=== PATIENT | female | born 1955 | race Caucasian/White ===

== ENCOUNTER 2017-01-10 21:24 | Emergency (ER) | payer MEDICARE, MEDICAID ==
[2017-01-10] MEDS ORDERED: CLONIDINE HCL 0.2 MG TABLET PO ONE (23:21)
[2017-01-10] MEDS ORDERED: PROCHLORPERAZINE EDISYLATE INJ 10 MG/2 ML VIAL IV ONE (23:22)
[2017-01-10] MEDS ORDERED: KETOROLAC TROMETHAMINE INJ/PF 30 MG/1 ML SDV IV ONE (23:22)
[2017-01-10] MEDS ORDERED: LORAZEPAM INJ 2 MG/1 ML VIAL IV ONE (23:22)
[2017-01-11] MEDS ORDERED: HYDROCHLOROTHIAZIDE 25 MG TABLET PO ONE (00:55)
--- NOTE | 2017-01-11 01:02 | ER Document Report ---
ED General - General Chief Complaint: Blood Pressure Problem Stated Complaint: HEADACHE/BLOOD PRESSURE ISSUE Notes: Patient is a 61-year-old female past medical history of essential hypertension and chronic low back pain who presents with several days of a bitemporal headache which she states became abruptly worse approximately 5 PM this evening. She has not had any associated vomiting, weakness, numbness, or altered mental status. States she's had similar headaches in the past when she has had severely elevated blood pressure. She has not tried anything to improve her symptoms and did not notice anything worsens the pain. States symptoms are somewhat improved since onset at this time. Denies that the headache was abrupt in onset and states it took several hours to reach maximal intensity. She has not spoken to her primary care doctor regarding her uncontrolled blood pressures were today's episode of headache. TRAVEL OUTSIDE OF THE [place] IN LAST 30 DAYS: No - Related Data Allergies/Adverse Reactions: fentanyl [From Duragesic] Allergy (Severe, Verified 04/19/16 23:37) Severe rash interferon beta-1b [From Betaseron] Allergy (Severe, Verified 09/06/14 14:20) Seizures morphine [Morphine] Allergy (Severe, Verified 04/19/16 23:37) Swelling, rash, difficulty breathing nalbuphine HCl [From Nubain] Allergy (Severe, Verified 04/19/16 23:37) Swelling, rash, Diff. breathing, Tachycardia quetiapine fumarate [From Seroquel] Allergy (Severe, Verified 09/06/14 14:20) crazy levofloxacin [From Levaquin] Allergy (Intermediate, Verified 09/06/14 14:20) Hives Sulfa (Sulfonamide Antibiotics) Allergy (Intermediate, Verified 09/06/14 14:20) N&V aspirin [Aspirin] Adverse Reaction (Verified 09/06/14 14:20) pt has von willebrands Past Medical History - General Information source: Patient - Social History Smoking Status: Never Smoker Chew tobacco use (# tins/day): No Frequency of alcohol use: None Drug Abuse: None Lives with: Spouse/Significant other Family History: Reviewed & Not Pertinent Patient has suicidal ideation: No Patient has homicidal ideation: No - Past Medical History Cardiac Medical History: Reports: Hx Coronary Artery Disease, Hx Heart Attack - 2008 mild , Hx Hypercholesterolemia, Hx Hypertension Pulmonary Medical History: Reports: Hx Asthma, Hx Bronchitis, Hx COPD, Hx Pneumonia - 2011 x 2 Denies: Hx Tuberculosis Neurological Medical History: Reports: Hx Seizures. Denies: Hx Cerebrovascular Accident Endocrine Medical History: Reports: Hx Diabetes Mellitus Type 2 Renal/ Medical History: Reports: Hx Kidney Stones. Denies: Hx Peritoneal Dialysis Musculoskeltal Medical History: Reports Hx Arthritis, Reports Hx Multiple Sclerosis Skin Medical History: Reports Hx MRSA Psychiatric Medical History: Reports: Hx Bipolar Disorder Past Surgical History: Reports: Hx Cholecystectomy, Hx Hysterectomy, Hx Orthopedic Surgery - Bilateral hips; does not have rt hip, left hip repair. Denies: Hx Pacemaker - Immunizations Hx Diphtheria, Pertussis, Tetanus Vaccination: Yes Hx Pneumococcal Vaccination: 03/17/13 Review of Systems - Review of Systems Notes: Constitutional: Negative for fever. HENT: Negative for sore throat. Eyes: Negative for visual changes. Cardiovascular: Negative for chest pain. Respiratory: Negative for shortness of breath. Gastrointestinal: Negative for abdominal pain, vomiting or diarrhea. Genitourinary: Negative for dysuria. Musculoskeletal: Positive for back pain. Skin: Negative for rash. Neurological: Positive for headaches, negative for weakness or numbness. 10 point ROS negative except as marked above and in HPI. Physical Exam - Vital signs Vitals: Temp Pulse Resp BP Pulse Ox 98.1 F 81 16 195/98 H 99 01/10/17 21:52 01/10/17 21:52 01/10/17 21:52 01/10/17 21:52 01/10/17 21:52 Interpretation: Hypertensive Notes: PHYSICAL EXAMINATION: GENERAL: Well-appearing, well-nourished and in no acute distress. HEAD: Atraumatic, normocephalic. EYES: Pupils equal round and reactive to light, extraocular movements intact, sclera anicteric, conjunctiva are normal. ENT: nares patent, oropharynx clear without exudates. Moist mucous membranes. NECK: Normal range of motion, supple without lymphadenopathy LUNGS: Breath sounds clear to auscultation bilaterally and equal. No wheezes rales or rhonchi. HEART: Regular rate and rhythm without murmurs ABDOMEN: Soft, nontender, normoactive bowel sounds. No guarding, no rebound. No masses appreciated. EXTREMITIES: Normal range of motion, no pitting or edema. No cyanosis. NEUROLOGICAL: Face symmetric. Tongue protrudes midline. Extraocular motions intact. Pupils are 2 mm and equally reactive. Normal speech, normal gait. 5 out of 5 strength in both the distal and proximal upper and lower extremities bilaterally. Sensation is grossly intact throughout. Finger to nose testing normal. Pronator drift normal. PSYCH: Normal mood, normal affect. SKIN: Warm, Dry, normal turgor, no rashes or lesions noted. Course - Re-evaluation Re-evalutation: 01/11/17 01:13 Patient presented with hypertension with an associated headache. The headache has been present for several days but became acutely acutely worse proximal and 5 hours prior to arrival. Patient is very clear that the headache started approximately [address] of the head was obtained within 6 hours of that time. No evidence of an acute subarachnoid bleed. Likewise, patient's clinical history is not consistent with this diagnosis. Given normal head CT within 6 hours will not proceed with lumbar puncture. Patient denied any chest pain or shortness of breath or additional complaints beyond a headache. Her headache was treated here with clonidine, Compazine and Ativan and she has had complete resolution of the headache. Her blood pressure has normalized. She will be discharged home on hydrochlorothiazide and instructed to continue taking her atenolol as directed.At this time will discharge with return precautions and follow-up recommendations. Verbal discharge instructions given a the bedside and opportunity for questions given. Medication warnings reviewed. Patient is in agreement with this plan and has verbalized understanding of return precautions and the need for primary care follow-up in the next 24-72 hours. - Vital Signs Vital signs: Temp Pulse Resp BP Pulse Ox 98.3 F 85 14 117/77 96 01/10/17 22:10 01/10/17 22:10 01/11/17 01:01 01/11/17 01:01 01/11/17 01:01 - Diagnostic Test Radiology reviewed: Image reviewed, Reports reviewed Radiology results interpreted by me: 01/11/17 04:23 CT head: No acute intrarenal bleed Discharge - Discharge Clinical Impression: Accelerated hypertension Headache Qualifiers: Headache type: unspecified Headache chronicity pattern: acute headache Intractability: not intractable Qualified Code(s): R51 - Headache Condition: Fair Disposition: HOME, SELF-CARE Additional Instructions: You were seen today for blood pressure that was high. This is a long-term risk factor for multiple medical problems including heart attack and stroke. However, the blood pressure in of itself will not cause you to have an acute stroke or heart attack over the course of just several days or weeks. You need to have a gradual reduction of your blood pressure back to normal levels over the next several months in conjunction with your primary care physician. Return if you develop headache, weakness, numbness, chest pain, pass out, or have any other symptoms that are concerning to you. Prescriptions: Hydrochlorothiazide 25 mg PO DAILY #30 tablet Referrals: LINDSAY SHORE MD [Primary Care Provider] - Follow up in 3-5 days
[2017-01-11 05:30] VITALS: BP 117/77
== END 2017-01-11 01:17 | disposition home or self-care (01) ==
LOC: ER 21:24
DX: I10 Essential (primary) hypertension (principal); R51 Headache; G89.29 Other chronic pain; M54.5 Low back pain; E11.9 Type 2 diabetes mellitus without complications; I25.10 Atherosclerotic heart disease of native coronary artery without angina pectoris; E78.00 Pure hypercholesterolemia, unspecified; Z88.6 Allergy status to analgesic agent; Z88.2 Allergy status to sulfonamides; Z86.14 Personal history of Methicillin resistant Staphylococcus aureus infection; Z90.710 Acquired absence of both cervix and uterus; Z90.49 Acquired absence of other specified parts of digestive tract; Z87.442 Personal history of urinary calculi; I25.2 Old myocardial infarction
CPT/HCPCS: 99283; 70450; A9270; J2060; J0780

== ENCOUNTER → 2017-05-05 | Outpatient (CLI) | payer MEDICARE, MEDICAID ==
[2017-05-05 18:24] LABS: ABSOLUTE BASOPHILS # (AUTO) 0.1 10^3/uL (0.0-0.2); ABSOLUTE EOSINOPHILS # (AUTO) 0.3 10^3/uL (0.0-0.6); ABSOLUTE LYMPHOCYTES (AUTO) 3.5 10^3/uL (0.5-4.7); BASOPHILS % (AUTO) 0.8 % (0-2); EOSINOPHILS % (AUTO) 2.6 % (0-6); HEMATOCRIT 39.6 % (36.0-47.0); HEMOGLOBIN 13.7 g/dL (12.0-15.5); HGB HCT DIFFERENCE 1.5; LYMPHOCYTES % (AUTO) 36.1 % (13-45); MEAN CORPUSCULAR HGB CONC 34.5 g/dL (32.0-36.0); MEAN CORPUSCULAR VOLUME 84 fl (80-97); MONOCYTES % (AUTO) 9.8 % (3-13); RED BLOOD COUNT 4.72 10^6/uL (3.72-5.28); RED CELL DISTRIBUTION WIDTH 13.9 % (11.5-14.0); SEGMENTED NEUTROPHILS % (AUTO) 50.7 % (42-78); WHITE BLOOD COUNT 9.8 10^3/uL (4.0-10.5)
[2017-05-05 18:45] LABS: ALANINE AMINOTRANSFERASE 41 U/L (9-52); ALBUMIN 4.5 g/dL (3.5-5.0); ALKALINE PHOSPHATASE 101 U/L (38-126); ANION GAP 12 (5-19); ASPARTATE AMINO TRANSFERASE 26 U/L (14-36); BILIRUBIN,DIRECT 0.4 mg/dL (0.0-0.4); BILIRUBIN,TOTAL 0.6 mg/dL (0.2-1.3); BLOOD UREA NITROGEN 17 mg/dL (7-20); CALCIUM 10.2 mg/dL (8.4-10.2); CARBON DIOXIDE 30 mmol/L (22-30); CHLORIDE 97 mmol/L (98-107); CREATININE RESULT 0.89 mg/dL (0.52-1.25); GLUCOSE 130 mg/dL (75-110); SODIUM 138.9 mmol/L (137-145); TOTAL PROTEIN 8.1 g/dL (6.3-8.2)
--- NOTE | 2017-05-05 19:20 | RADIOLOGY REPORT (SQ) ---
EXAM DESCRIPTION: CT ABD/PELVIS NO ORAL OR IV COMPLETED DATE/TIME: 05/05/2017 6:44 pm REASON FOR STUDY: HEMATURIA,UNSPECIFIED R31.9 HEMATURIA, UNSPECIFIED COMPARISON: None. TECHNIQUE: CT scan of the abdomen and pelvis performed without intravenous or oral contrast. Images reviewed with lung, soft tissue, and bone windows. Reconstructed coronal and sagittal MPR images revi ewed. All images stored on PACS. All CT scanners at this facility use dose modulation, iterative reconstruction, and/or weight based d osing when appropriate to reduce radiation dose to as low as reasonably achievable (ALARA). [facility]: Dose Right [facility]: CareDose [facility]: Dose Right [facility]: Teradose 4D [facility]: [employer] RADIATION DOSE: Up-to-date CT equipment and radiation dose reduction techniques were employed. CTDIv ol: 5.4 mGy. DLP: 256 mGy-cm.mGy. LIMITATIONS: None. FINDINGS: LOWER CHEST: No significant findings. No nodules or infiltrates. NON-CONTRASTED LIVER, SPLEEN, ADRENALS: Evaluation limited by lack of IV contrast. No identified sign ificant masses. PANCREAS: No masses. No peripancreatic inflammatory changes. GALLBLADDER: Status post cholecystectomy RIGHT KIDNEY AND URETER: No suspicious masses. Assessment limited by lack of IV contrast. No signif icant calcifications. No hydronephrosis or hydroureter. LEFT KIDNEY AND URETER: A markedly atrophic left kidney is identified. Couple small calcific densit ies are identified presumably representing nonobstructing renal calculi. These could also represent cortical calcifications. No hydronephrosis or hydroureter. AORTA AND RETROPERITONEUM: No aneurysm. No retroperitoneal masses or adenopathy. BOWEL AND PERITONEAL CAVITY: No obvious masses or inflammatory changes. No free fluid. APPENDIX: Not identified PELVIS, BLADDER, AND ABDOMINAL WALL:No abnormal masses. No free fluid. Bladder normal. BONES: Extensive degenerative changes are identified in the lumbar spine. There is marked deformity of the with right hip articulation presumably related to previous trauma. OTHER: No other significant finding. IMPRESSION: Markedly atrophic left kidney as noted above. A couple small calcific densities are joey ntified in the left kidney presumably representing nonobstructing renal calculi although these could also represent cortical calcifications. Other findings as noted above TECHNICAL DOCUMENTATION: JOB ID: [id number] Quality ID # [id number]: Final reports with documentation of one or more dose reduction techniques (e.g., Au tomated exposure control, adjustment of the mA and/or kV according to patient size, use of iterative reconstruction technique) 2010 [employer]- All Rights Reserved
== END ==
LOC: LAB 17:54
PROVIDERS: ATTEND Physician Assistant
DX: R31.9 Hematuria, unspecified (principal); N26.1 Atrophy of kidney (terminal)
CPT/HCPCS: 36415; 74176; 80053; 85025

== ENCOUNTER → 2017-06-04 | Outpatient (CLI) | payer MEDICARE, MEDICAID ==
--- NOTE | 2017-06-04 16:53 | RADIOLOGY REPORT (SQ) ---
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 FINDINGS: RIGHT KIDNEY: RENAL ARTERY VELOCITIES: Renal artery velocity at the hilum 87 cm/sec. Segmental artery velocity 79 cm/sec. RENAL VEIN: Color doppler flow present, patent. VELOCITY RATIO: 1.6. Normal waveforms. KIDNEY: 9 cm in length. No hydronephrosis. No cortical thinning. No significant pathology. LEFT KIDNEY: Patient had a double-J stent on the left, 05/24/2007 CT exam. At that time the kidney measured about 6 to 7 cm in greatest length. Subsequent CT exams since 2010 demonstrate a markedly atrophic left ki dney, less than 5 cm in length without hydronephrosis. On today's ultrasound exam, the left kidney was not visualized. This likely due to a combination of bowel gas in the left colon and patient large body habitus. BLADDER: Normal. OTHER: No other significant finding. IMPRESSION: No Doppler evidence of right-sided renal artery stenosis. Left kidney not visualized. Prior CT exams demonstrated atrophy of the left kidney dating back to 25 08 and 2006 COMMENT: NORMAL RENAL ARTERY/AORTA VELOCITY RATIO IS LESS THAN OR EQUAL TO 3.5. TECHNICAL DOCUMENTATION: JOB ID: [id number] [employer]- All Rights Reserved COMPARISON: None. Abdomen and pelvis 05/05/2017, a 22,012, 05/22/2011, 05/24/2007 TECHNIQUE: Realtime and static grayscale images acquired. Selected color Doppler, velocities and spe ctral images recorded.
--- NOTE | 2017-06-04 16:53 | RADIOLOGY REPORT (SQ) ---
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 FINDINGS: RIGHT KIDNEY: RENAL ARTERY VELOCITIES: Renal artery velocity at the hilum 87 cm/sec. Segmental artery velocity 79 cm/sec. RENAL VEIN: Color doppler flow present, patent. VELOCITY RATIO: 1.6. Normal waveforms. KIDNEY: 9 cm in length. No hydronephrosis. No cortical thinning. No significant pathology. LEFT KIDNEY: Patient had a double-J stent on the left, 05/24/2007 CT exam. At that time the kidney measured about 6 to 7 cm in greatest length. Subsequent CT exams since 2010 demonstrate a markedly atrophic left ki dney, less than 5 cm in length without hydronephrosis. On today's ultrasound exam, the left kidney was not visualized. This likely due to a combination of bowel gas in the left colon and patient large body habitus. BLADDER: Normal. OTHER: No other significant finding. IMPRESSION: No Doppler evidence of right-sided renal artery stenosis. Left kidney not visualized. Prior CT exams demonstrated atrophy of the left kidney dating back to 25 08 and 2006 COMMENT: NORMAL RENAL ARTERY/AORTA VELOCITY RATIO IS LESS THAN OR EQUAL TO 3.5. TECHNICAL DOCUMENTATION: JOB ID: [id number] [employer]- All Rights Reserved COMPARISON: None. Abdomen and pelvis 05/05/2017, a 22,012, 05/22/2011, 05/24/2007 TECHNIQUE: Realtime and static grayscale images acquired. Selected color Doppler, velocities and spe ctral images recorded.
== END ==
LOC: RAD 12:57
PROVIDERS: ATTEND Physician Assistant Medical
DX: N26.1 Atrophy of kidney (terminal) (principal); E11.9 Type 2 diabetes mellitus without complications
CPT/HCPCS: 76770; 93976

== ENCOUNTER 2018-01-09 17:44 | Emergency (ER) | payer MEDICARE, MEDICAID ==
--- NOTE | 2018-01-09 18:28 | RADIOLOGY REPORT (SQ) ---
EXAM DESCRIPTION: CT HEAD WITHOUT COMPLETED DATE/TIME: 01/09/2018 6:17 pm REASON FOR STUDY: altered mental status COMPARISON: 01/10/2017 TECHNIQUE: Axial images acquired through the brain without intravenous contrast. Images reviewed wi th bone, brain and subdural windows. Additional sagittal and coronal reconstructions were generated. Images stored on PACS. All CT scanners at this facility use dose modulation, iterative reconstruction, and/or weight based d osing when appropriate to reduce radiation dose to as low as reasonably achievable (ALARA). [facility]: Dose Right [facility]: CareDose [facility]: Dose Right [facility]: Teradose 4D [facility]: [employer] RADIATION DOSE: CT Rad equipment meets quality standard of care and radiation dose reduction techniq ues were employed. CTDIvol: 53.2 mGy. DLP: 991 mGy-cm. mGy. LIMITATIONS: None. FINDINGS: VENTRICLES: Normal size and contour. CEREBRUM: No masses. No hemorrhage. No midline shift. There is an old or subacute infarct in the l eft posterior parietal lobe. This was not present on the study from 01/10/2017. Normal carlson/white gloria er differentiation. No areas of low density in the white matter. CEREBELLUM: No masses. No hemorrhage. No alteration of density. No evidence for acute infarction. EXTRAAXIAL SPACES: No fluid collections. No masses. ORBITS AND GLOBE: No intra- or extraconal masses. Normal contour of globe without masses. CALVARIUM: No fracture. PARANASAL SINUSES: No fluid or mucosal thickening. SOFT TISSUES: No mass or hematoma. OTHER: No other significant finding. IMPRESSION: 1. 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 This was not present in January 2017. 2. No acute intracranial imaging finding is present. EVIDENCE OF ACUTE STROKE: NO. COMMENT: Quality ID # [id number]: Final reports with documentation of one or more dose reduction techniques (e.g., Automated exposure control, adjustment of the mA and/or kV according to patient size, use of iterative reconstruction technique) TECHNICAL DOCUMENTATION: JOB ID: [id number] [employer]- All Rights Reserved Reading location - IP/workstation name: [email or web address]
[2018-01-09] MEDS ORDERED: NORMAL SALINE 1000 ML 1,000 ML IV ONE (18:31)
[2018-01-09] MEDS ORDERED: HALOPERIDOL LACTATE INJ 5 MG/1 ML VIAL IV ONE (18:31)
[2018-01-09 18:53] LABS: ABSOLUTE EOSINOPHILS # (AUTO) 0.5 10^3/uL (0.0-0.6); ABSOLUTE LYMPHOCYTES (AUTO) 2.9 10^3/uL (0.5-4.7); ABSOLUTE MONOCYTES (AUTO) 0.9 10^3/uL (0.1-1.4); BASOPHILS % (AUTO) 0.4 % (0-2); EOSINOPHILS % (AUTO) 4.7 % (0-6); HEMATOCRIT 39.2 % (36.0-47.0); HEMOGLOBIN 12.6 g/dL (12.0-15.5); LYMPHOCYTES % (AUTO) 28.3 % (13-45); MEAN CORPUSCULAR HEMOGLOBIN 27.7 pg (27.0-33.4); MEAN CORPUSCULAR HGB CONC 32.3 g/dL (32.0-36.0); MEAN CORPUSCULAR VOLUME 86 fl (80-97); MONOCYTES % (AUTO) 8.9 % (3-13); PLATELET COUNT 195 10^3/uL (150-450); RED BLOOD COUNT 4.55 10^6/uL (3.72-5.28); RED CELL DISTRIBUTION WIDTH 15.2 % (11.5-14.0); SEGMENTED NEUTROPHILS % (AUTO) 57.7 % (42-78); TOTAL CELLS COUNTED % (AUTO) 100 %; WHITE BLOOD COUNT 10.4 10^3/uL (4.0-10.5)
[2018-01-09 19:09] LABS: ANION GAP 12 (5-19); BLOOD UREA NITROGEN 33 mg/dL (7-20); CALCIUM 9.7 mg/dL (8.4-10.2); CARBON DIOXIDE 28 mmol/L (22-30); CHLORIDE 103 mmol/L (98-107); GLUCOSE 100 mg/dL (75-110); POTASSIUM 4.5 mmol/L (3.6-5.0); SODIUM 142.6 mmol/L (137-145)
--- NOTE | 2018-01-09 19:12 | ER Document Report ---
ED General - General Chief Complaint: Altered Mental Status Stated Complaint: HEADACHE, FEVER, CONFUSION, ARM WEAKNESS Time Seen by Provider: 01/09/18 18:28 Notes: Patient is a 62 year old female with a past medical history of hypertension, insulin-dependent diabetes, hyperlipidemia, multiple sclerosis, and chronic pain who presents with 3 days of a headache. Patient describes this as a constant, throbbing, bitemporal headache worsened by lights and sounds. She notes associated nausea without vomiting. States this feels very similar to prior headaches. She has not done them to try to improve her headache. She denies any focal weakness, numbness, and contrary to triage assessment she denies any fever. She states that sometimes the pain has become so intense that it has caused her to become somewhat confused which she reports she has had in the past with bad headaches. She denies any chest pain, shortness of breath or any additional complaints. She has been taking all medications as prescribed by her primary doctor. TRAVEL OUTSIDE OF THE [place] IN LAST 30 DAYS: No - Related Data Allergies/Adverse Reactions: fentanyl [From Duragesic] Allergy (Severe, Verified 04/19/16 23:37) Severe rash interferon beta-1b [From Betaseron] Allergy (Severe, Verified 09/06/14 14:20) Seizures morphine [Morphine] Allergy (Severe, Verified 04/19/16 23:37) Swelling, rash, difficulty breathing nalbuphine HCl [From Nubain] Allergy (Severe, Verified 04/19/16 23:37) Swelling, rash, Diff. breathing, Tachycardia quetiapine fumarate [From Seroquel] Allergy (Severe, Verified 09/06/14 14:20) crazy levofloxacin [From Levaquin] Allergy (Intermediate, Verified 09/06/14 14:20) Hives Sulfa (Sulfonamide Antibiotics) Allergy (Intermediate, Verified 09/06/14 14:20) N&V aspirin [Aspirin] Adverse Reaction (Verified 09/06/14 14:20) pt has von willebrands Past Medical History - General Information source: Patient - Social History Smoking Status: Never Smoker Frequency of alcohol use: None Drug Abuse: None Lives with: Alone Family History: Reviewed & Not Pertinent Patient has suicidal ideation: No Patient has homicidal ideation: No - Past Medical History Cardiac Medical History: Reports: Hx Coronary Artery Disease, Hx Heart Attack - 2008 mild , Hx Hypercholesterolemia, Hx Hypertension Pulmonary Medical History: Reports: Hx Asthma, Hx Bronchitis, Hx COPD, Hx Pneumonia - 2011 x 2 Denies: Hx Tuberculosis Neurological Medical History: Reports: Hx Seizures. Denies: Hx Cerebrovascular Accident Endocrine Medical History: Reports: Hx Diabetes Mellitus Type 2 Renal/ Medical History: Reports: Hx Kidney Stones. Denies: Hx Peritoneal Dialysis Musculoskeltal Medical History: Reports Hx Arthritis, Reports Hx Multiple Sclerosis Skin Medical History: Reports Hx MRSA Psychiatric Medical History: Reports: Hx Bipolar Disorder Past Surgical History: Reports: Hx Cholecystectomy, Hx Hysterectomy, Hx Orthopedic Surgery - Bilateral hips; does not have rt hip, left hip repair. Denies: Hx Pacemaker - Immunizations Hx Diphtheria, Pertussis, Tetanus Vaccination: Yes Hx Pneumococcal Vaccination: 03/17/13 Review of Systems - Review of Systems Notes: Constitutional: Negative for fever. HENT: Negative for sore throat. Eyes: Negative for visual changes. Cardiovascular: Negative for chest pain. Respiratory: Negative for shortness of breath. Gastrointestinal: Negative for abdominal pain, positive for nausea Genitourinary: Negative for dysuria. Musculoskeletal: Negative for back pain. Skin: Negative for rash. Neurological: Positive for headache 10 point ROS negative except as marked above and in HPI. Physical Exam - Vital signs Vitals: Temp Pulse Resp BP Pulse Ox 97.6 F 93 16 130/61 H 97 01/09/18 17:48 01/09/18 17:48 01/09/18 17:48 01/09/18 17:48 01/09/18 17:48 Interpretation: Normal Notes: PHYSICAL EXAMINATION: GENERAL: Well-appearing, well-nourished and in no acute distress. HEAD: Atraumatic, normocephalic. EYES: Pupils equal round and reactive to light, extraocular movements intact, sclera anicteric, conjunctiva are normal. ENT: nares patent, oropharynx clear without exudates. Moist mucous membranes. NECK: Normal range of motion, supple without lymphadenopathy LUNGS: Breath sounds clear to auscultation bilaterally and equal. No wheezes rales or rhonchi. HEART: Regular rate and rhythm without murmurs ABDOMEN: Soft, nontender, normoactive bowel sounds. No guarding, no rebound. No masses appreciated. EXTREMITIES: Normal range of motion, no pitting or edema. No cyanosis. NEUROLOGICAL: Face symmetric. Tongue protrudes midline. Extraocular motions intact. Pupils are 2 mm and equally reactive. Normal speech, normal gait. 5 out of 5 strength in both the distal and proximal upper and lower extremities bilaterally. Sensation is grossly intact throughout. Finger to nose testing normal. Pronator drift normal. PSYCH: Normal mood, normal affect. SKIN: Warm, Dry, normal turgor, no rashes or lesions noted. Course - Re-evaluation Re-evalutation: 01/09/18 19:09 Presentation of a headache that appears to be most consistent with tension versus migrainous type headache. Please note, there are significant variances between the patient reports to me, was reported in triage. The patient states that she was "kind of confused" but attributes this more to be on such bad pain. She is also clear to deny to me, neurologic deficits, or any difference from prior headaches. Headache was not maximal in onset, patient has no focal neurologic deficits, no nuchal rigidity, vital signs within normal limits, no papilledema, and patient is overall well in appearance. Based on clinical history and examination I do not suspect an acute subarachnoid hemorrhage, dural venous sinus thrombosis, acute meningitis, or intercranial mass. A CT of the head was obtained prior to my assessment the patient and shows an old parietal stroke but nothing acute. Labs are likewise unremarkable. Patient has had resolution of her headache after receiving a migraine cocktail like to go. At this time will discharge with return precautions and follow-up recommendations. Verbal discharge instructions given a the bedside and opportunity for questions given. Medication warnings reviewed. Patient is in agreement with this plan and has verbalized understanding of return precautions and the need for primary care follow-up in the next 24-72 hours. - Vital Signs Vital signs: Temp Pulse Resp BP Pulse Ox 97.7 F 93 15 108/48 L 95 01/09/18 20:48 01/09/18 17:48 01/09/18 20:48 01/09/18 20:48 01/09/18 20:48 - Laboratory Result Diagrams: 01/09/18 18:39 01/09/18 18:39 Laboratory results interpreted by me: 01/09/18 01/09/18 18:39 18:39 RDW 15.2 H BUN 33 H - Diagnostic Test Radiology reviewed: Image reviewed, Reports reviewed Radiology results interpreted by me: 01/09/18 19:10 CT head: No acute intracranial bleed or mass - EKG Interpretation by Me Additional EKG results interpreted by me: 01/09/18 19:11 Sinus rhythm. Rate 87. No ST elevations or depressions. QTC is 448. Discharge - Discharge Clinical Impression: Migraine headache Qualifiers: Migraine type: unspecified Status migrainosus presence: with status migrainosus Intractability: not intractable Qualified Code(s): G43.901 - Migraine, unspecified, not intractable, with status migrainosus Chronic pain Qualifiers: Chronic pain type: other chronic pain Qualified Code(s): G89.29 - Other chronic pain Condition: Good Disposition: HOME, SELF-CARE Additional Instructions: You were seen today for a migraine headache. Please follow-up with your primary care doctor regarding today's ED visit. Return to emergency department immediately if you develop a headache that gets to its maximum severity within 20 minutes of onset, you pass out, you develop weakness, numbness, changes in your vision, become unable to keep any fluids down for more than 12 hours, or develop a fever greater than 100.4 degrees Fahrenheit. Referrals: LINDSAY SHORE MD [Primary Care Provider] - Follow up as needed
--- NOTE | 2018-01-09 21:02 | EKG REPORT ---
SEVERITY:- BORDERLINE ECG - SINUS RHYTHM CONSIDER ANTERIOR INFARCT BORDERLINE T ABNORMALITIES, ANTERIOR LEADS : Confirmed by: Dejah Schwartz 09-Jan-2018 21:01:44
[2018-01-09 21:04] VITALS: BP 108/48
== END 2018-01-09 20:48 | disposition home or self-care (01) ==
LOC: ER 17:44
DX: G43.901 Migraine, unspecified, not intractable, with status migrainosus (principal); R41.82 Altered mental status, unspecified; R50.9 Fever, unspecified; R53.1 Weakness; G89.29 Other chronic pain; E11.9 Type 2 diabetes mellitus without complications; Z88.6 Allergy status to analgesic agent; Z88.2 Allergy status to sulfonamides; Z90.49 Acquired absence of other specified parts of digestive tract; Z90.710 Acquired absence of both cervix and uterus; Z87.442 Personal history of urinary calculi
CPT/HCPCS: 93005; 99285; 96361; 96374; 36415; 85025; 80048; 84484; 70450; 93010; J1630; J7030

== ENCOUNTER 2018-03-03 20:44 | Emergency (ER) | payer MEDICARE, MEDICAID ==
[2018-03-03 21:15] VITALS: BP 186/86
[2018-03-04 00:51] LABS: HEMOGLOBIN 14.5 g/dL (12.0-15.5); MEAN CORPUSCULAR HEMOGLOBIN 28.6 pg (27.0-33.4); MEAN CORPUSCULAR HGB CONC 33.8 g/dL (32.0-36.0); MEAN CORPUSCULAR VOLUME 85 fl (80-97); PLATELET COUNT 234 10^3/uL (150-450); RED BLOOD COUNT 5.07 10^6/uL (3.72-5.28); WHITE BLOOD COUNT 14.4 10^3/uL (4.0-10.5)
[2018-03-04 00:52] LABS: APPEARANCE,URINE SLIGHTLY-CLOUDY; BILIRUBIN,URINE NEGATIVE (NEGATIVE); GLUCOSE, URINE NEGATIVE (NEGATIVE); KETONES,URINE 20 mg/dL (NEGATIVE); LEUKOCYTE ESTERASE,URINE NEGATIVE (NEGATIVE); NITRITE,URINE NEGATIVE (NEGATIVE); PROTEIN,URINE 100 mg/dL (NEGATIVE); URINE SPECIFIC GRAVITY 1.026
[2018-03-04 00:54] LABS: COLOR,URINE YELLOW
[2018-03-04 01:02] LABS: ANION GAP 17 (5-19); BLOOD UREA NITROGEN 24 mg/dL (7-20); CARBON DIOXIDE 23 mmol/L (22-30); CHLORIDE 106 mmol/L (98-107); GLUCOSE 113 mg/dL (75-110); POTASSIUM 4.2 mmol/L (3.6-5.0); SODIUM 145.9 mmol/L (137-145)
--- NOTE | 2018-03-04 01:48 | ER Document Report ---
ED General - General Chief Complaint: Pain All Over Stated Complaint: PAIN ALL OVER Time Seen by Provider: 03/03/18 23:14 TRAVEL OUTSIDE OF THE [place] IN LAST 30 DAYS: No - HPI Patient complains to provider of: Medical evaluation Notes: Patient coming in with a history of osteomyelitis and patient came in for EMS for generalized malaise. Upon my evaluation patient is alert oriented no signs of any obvious distress no signs of any malaise. Patient states that for the last 4 weeks she has been having symptoms of intermittent weakness and also some nausea vomiting and diarrhea. Patient states that approximately 2 weeks ago her family physician recommended that she go to the hospital in [place] for further evaluation. Patient also states that her care has been delayed as that her primary care physician cannot obtain her medical records from her old neurologist Dr. Avila. Patient states that she was told to come to the ER by her family physician for a shot of Dilaudid and a shot of Ativan to help out with her "situation" and to be transferred today to [facility]. The HPI is very convoluted as the patient really does not have what seem to be an emergent condition I asked the patient multiple times the exact reason why she came to the ER today patient continues to apply the my statement that 4 weeks ago she started having symptoms and that her PCP cannot get her old records from her neurologist Dr. Avila. Patient does state that she is concerned that she may have underlying UTI. - Related Data Allergies/Adverse Reactions: fentanyl [From Duragesic] Allergy (Severe, Verified 04/19/16 23:37) Severe rash interferon beta-1b [From Betaseron] Allergy (Severe, Verified 09/06/14 14:20) Seizures morphine [Morphine] Allergy (Severe, Verified 04/19/16 23:37) Swelling, rash, difficulty breathing nalbuphine HCl [From Nubain] Allergy (Severe, Verified 04/19/16 23:37) Swelling, rash, Diff. breathing, Tachycardia quetiapine fumarate [From Seroquel] Allergy (Severe, Verified 09/06/14 14:20) crazy levofloxacin [From Levaquin] Allergy (Intermediate, Verified 09/06/14 14:20) Hives Sulfa (Sulfonamide Antibiotics) Allergy (Intermediate, Verified 09/06/14 14:20) N&V aspirin [Aspirin] Adverse Reaction (Verified 09/06/14 14:20) pt has von willebrands Past Medical History - Social History Smoking Status: Unknown if Ever Smoked Family History: Reviewed & Not Pertinent Patient has suicidal ideation: No Patient has homicidal ideation: No - Past Medical History Cardiac Medical History: Reports: Hx Coronary Artery Disease, Hx Heart Attack - 2008 mild , Hx Hypercholesterolemia, Hx Hypertension Pulmonary Medical History: Reports: Hx Asthma, Hx Bronchitis, Hx COPD, Hx Pneumonia - 2010 x 2 Denies: Hx Tuberculosis Neurological Medical History: Reports: Hx Seizures. Denies: Hx Cerebrovascular Accident Endocrine Medical History: Reports: Hx Diabetes Mellitus Type 2 Renal/ Medical History: Reports: Hx Kidney Stones. Denies: Hx Peritoneal Dialysis Musculoskeltal Medical History: Reports Hx Arthritis, Reports Hx Multiple Sclerosis Skin Medical History: Reports Hx MRSA Psychiatric Medical History: Reports: Hx Bipolar Disorder Past Surgical History: Reports: Hx Cholecystectomy, Hx Hysterectomy, Hx Orthopedic Surgery - Bilateral hips; does not have rt hip, left hip repair. Denies: Hx Pacemaker - Immunizations Hx Diphtheria, Pertussis, Tetanus Vaccination: Yes Hx Pneumococcal Vaccination: 03/17/13 Review of Systems - Review of Systems Constitutional: Malaise EENT: No symptoms reported Cardiovascular: No symptoms reported Respiratory: No symptoms reported Gastrointestinal: No symptoms reported Genitourinary: No symptoms reported Female Genitourinary: No symptoms reported Musculoskeletal: No symptoms reported Skin: No symptoms reported Hematologic/Lymphatic: No symptoms reported Neurological/Psychological: No symptoms reported -: Yes All other systems reviewed and negative Physical Exam - Vital signs Vitals: Temp Pulse Resp BP Pulse Ox 98.5 F 97 18 186/86 H 97 03/03/18 21:13 03/03/18 21:13 03/03/18 21:13 03/03/18 21:13 03/03/18 21:13 Interpretation: Normal - General General appearance: Appears well, Alert - HEENT Head: Normocephalic, Atraumatic Eyes: Normal Pupils: PERRL - Respiratory Respiratory status: No respiratory distress Chest status: Nontender Breath sounds: Normal Chest palpation: Normal - Cardiovascular Rhythm: Regular Heart sounds: Normal auscultation Murmur: No - Abdominal Inspection: Normal Distension: No distension Bowel sounds: Normal Tenderness: Nontender Organomegaly: No organomegaly - Back Back: Normal, Nontender - Extremities General upper extremity: Normal inspection, Nontender, Normal color, Normal ROM , Normal temperature General lower extremity: Nontender, Normal temperature. No: Normal inspection - Postsurgical changes no signs of infection - Neurological Neuro grossly intact: Yes Cognition: Normal Orientation: AAOx4 [place] Coma Scale Eye Opening: Spontaneous Heidi Coma Scale Verbal: Oriented Heidi Coma Scale Motor: Obeys Commands [place] Coma Scale Total: 15 Speech: Normal Motor strength normal: LUE, RUE, LLE, RLE Sensory: Normal - Psychological Associated symptoms: Normal affect, Normal mood - Skin Skin Temperature: Warm Skin Moisture: Dry Skin Color: Normal Course - Re-evaluation Re-evalutation: 03/04/18 03:32 Patient coming in with a wide variety of chronic conditions however is concerned she may have underlying urinary tract infection which was checked and was negative. Patient's vital signs show no fever no signs of sepsis no signs of significant pathology. Patient does have a slight leukocytosis at 14 however no fever do not see any need for any antibiotics or any further workup. Patient remained stable during her time here did explain to the patient she has a UTI no concerning pathology seen on her physical examination highly recommended to the patient she follow-up with her primary care physician and that she will be able to obtain her records from the hospital once I finish dictating my note. Patient was discharged home - Vital Signs Vital signs: Temp Pulse Resp BP Pulse Ox 98.5 F 97 18 186/86 H 97 03/03/18 21:13 03/03/18 21:13 03/03/18 21:13 03/03/18 21:13 03/03/18 21:13 - Laboratory Result Diagrams: 03/04/18 00:40 03/04/18 00:40 Laboratory results interpreted by me: 03/04/18 03/04/18 03/04/18 00:27 00:40 00:40 WBC 14.4 H Sodium 145.9 H BUN 24 H Glucose 113 H Urine Protein 100 H Urine Ketones 20 H Urine Urobilinogen 2.0 H Discharge - Discharge Clinical Impression: Feared complaint without diagnosis Condition: Good Disposition: HOME, SELF-CARE Additional Instructions: Your laboratory studies did not show any signs of significant infection no signs of urinary tract infection. I highly recommend she follow-up with your primary care physician for further evaluation. Return to the ER for any concerns. Continue all your home medications as prescribed Referrals: SILVIANO,EARLIE T, MD [Primary Care Provider] - Follow up as needed
== END 2018-03-04 02:45 | disposition home or self-care (01) ==
LOC: ER 20:44
DX: R53.81 Other malaise (principal); R53.1 Weakness; R11.2 Nausea with vomiting, unspecified; I25.10 Atherosclerotic heart disease of native coronary artery without angina pectoris; D72.829 Elevated white blood cell count, unspecified; R19.7 Diarrhea, unspecified; I25.2 Old myocardial infarction; I10 Essential (primary) hypertension; J44.9 Chronic obstructive pulmonary disease, unspecified; E11.9 Type 2 diabetes mellitus without complications; Z88.5 Allergy status to narcotic agent; Z88.8 Allergy status to other drugs, medicaments and biological substances; Z88.1 Allergy status to other antibiotic agents; Z88.2 Allergy status to sulfonamides
CPT/HCPCS: 36415; 80048; 81001; 85027; 87086; 99284

== ENCOUNTER 2018-03-04 09:02 | Emergency (ER) | payer MEDICARE, MEDICAID ==
--- NOTE | 2018-03-04 09:44 | ER Document Report ---
ED General - General Chief Complaint: Vomiting Stated Complaint: VOMITING Time Seen by Provider: 03/04/18 09:44 Mode of Arrival: Ambulatory Information source: Patient Notes: 62-year-old lady with past medical history of multiple sclerosis, bipolar disorder, seizure disorder, distant history of right hip osteomyelitis who presented today as a second visit for evaluation of vomiting. According to patient she was seen here last night for evaluation of similar symptoms. Patient has been having vomiting since yesterday. Multiple episodes, bilious, nonbloody. Patient is a very poor historian, unable to provide history. During the examination and history patient sustained a seizure. Seizure was approximately 1 minute with resolution. Patient is slightly confused. No signs of trauma. Patient was seen here last night and was treated for possible dehydration. Patient had elevated leukocytosis on her lab work without any signs of acute UTI. Patient was sent home this morning to see her primary care physician. After seeing primary care physician she was referred here for further evaluation given the patient did not appear her baseline. TRAVEL OUTSIDE OF THE [place] IN LAST 30 DAYS: No - Related Data Allergies/Adverse Reactions: fentanyl [From Duragesic] Allergy (Severe, Verified 03/04/18 09:03) Severe rash interferon beta-1b [From Betaseron] Allergy (Severe, Verified 03/04/18 09:03) Seizures morphine [Morphine] Allergy (Severe, Verified 03/04/18 09:03) Swelling, rash, difficulty breathing nalbuphine HCl [From Nubain] Allergy (Severe, Verified 03/04/18 09:03) Swelling, rash, Diff. breathing, Tachycardia quetiapine fumarate [From Seroquel] Allergy (Severe, Verified 03/04/18 09:03) crazy levofloxacin [From Levaquin] Allergy (Intermediate, Verified 03/04/18 09:03) Hives Sulfa (Sulfonamide Antibiotics) Allergy (Intermediate, Verified 03/04/18 09:03) N&V aspirin [Aspirin] Adverse Reaction (Verified 03/04/18 09:03) pt has von willebrands Past Medical History - General Information source: Patient - Social History Smoking Status: Former Smoker Family History: Reviewed & Not Pertinent - Past Medical History Cardiac Medical History: Reports: Hx Coronary Artery Disease, Hx Heart Attack - 2008 mild , Hx Hypercholesterolemia, Hx Hypertension Pulmonary Medical History: Reports: Hx Asthma, Hx Bronchitis, Hx COPD, Hx Pneumonia - 2010 x 2 Denies: Hx Tuberculosis Neurological Medical History: Reports: Hx Seizures. Denies: Hx Cerebrovascular Accident Endocrine Medical History: Reports: Hx Diabetes Mellitus Type 2 Renal/ Medical History: Reports: Hx Kidney Stones. Denies: Hx Peritoneal Dialysis Musculoskeltal Medical History: Reports Hx Arthritis, Reports Hx Multiple Sclerosis Skin Medical History: Reports Hx MRSA Psychiatric Medical History: Reports: Hx Bipolar Disorder Past Surgical History: Reports: Hx Cholecystectomy, Hx Hysterectomy, Hx Orthopedic Surgery - Bilateral hips; does not have rt hip, left hip repair. Denies: Hx Pacemaker - Immunizations Hx Diphtheria, Pertussis, Tetanus Vaccination: Yes Hx Pneumococcal Vaccination: 03/17/13 Review of Systems - Review of Systems Notes: Unable to obtain full review of systems secondary to patient's clinical condition and being poor historian Patient did report vomiting Physical Exam - Vital signs Vitals: Temp Pulse Resp BP Pulse Ox 97.1 F 104 H 18 184/82 H 97 03/04/18 09:17 03/04/18 09:17 03/04/18 09:17 03/04/18 09:17 03/04/18 09:17 - Notes Notes: Reviewed vital signs and nursing note as charted by RN. CONSTITUTIONAL: Alert, poor historian, appears to be shaky HEAD: Normocephalic; atraumatic EYES: PERRL; Conjunctivae clear, sclerae non-icteric ENT: normal nose; no rhinorrhea; dry mucous membranes; pharynx without lesions noted NECK: Supple without meningismus; non-tender; no cervical lymphadenopathy, no masses CARD: Tachycardia; no murmurs, no clicks, no rubs, no gallops; symmetric distal pulses RESP: Normal chest excursion without splinting or tachypnea; breath sounds clear and equal bilaterally ABD/GI: Normal bowel sounds; non-distended; soft, nontender BACK: The back appears normal and is non-tender to palpation EXT: Normal ROM in all joints SKIN: Normal color for age and race; warm; dry; good turgor; capillary refill < 2 seconds; no acute lesions noted NEURO: Cranial nerves 3-12 intact. Motor strength 5/5 bilaterally. Sensation intact to touch bilaterally. No pronator drift. Finger to nose intact bilaterally PSYCH: Denies any suicidal homicidal ideations Course - Re-evaluation Re-evalutation: 62-year-old with multiple medical problems including seizure disorder as well as bipolar and multiple sclerosis Differential diagnoses includes electrolyte abnormalities, epilepsy, subtherapeutic levels of her antiepileptic medications, drug abuse, alcohol intoxication, withdrawal from benzodiazepines or possibly alcohol, intracranial hemorrhage or subdural hematoma, ACS, intra-abdominal infection, small bowel obstruction, sepsis, pancreatitis, acute cystitis, dehydration We will obtain basic lab work including CBC, CMP, urinalysis, drug screen, lipase Chest x-ray, EKG, cardiac biomarkers Alcohol level, salicylate as well as Tylenol level CT head without contrast IV hydration 03/04/18 10:58 03/04/18 10:59 Patient has significant leukocytosis, will obtain CT scan to rule out acute intra-abdominal infection or possible small bowel obstruction 03/04/18 15:22 CT scan of the brain as well as abdomen did not reveal any acute intracranial or surgical abdominal process Patient feels significantly better, nausea completely resolved, patient is at her baseline 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, discussed her mental status and it appears to be her normal mentation We will repeat CBC as well as BMP after hydration Awaiting urinalysis If normal lab work and urinalysis, anticipate discharge home 03/04/18 16:19 Patient has improvement of her white count, BMP with improvement of her acidosis as well as BUN Urine tox [employer] screen positive for barbiturates, no other drugs present Patient clinically feels much better No more nausea or vomiting, no recurrent seizures Discussed results of workup as well as disposition planning, patient agree with disposition home today and close follow-up with primary care physician Patient was given strict precautions to come back if her symptoms are not improving - Vital Signs Vital signs: Temp Pulse Resp BP Pulse Ox 97.1 F 104 H 17 192/92 H 99 03/04/18 09:17 03/04/18 09:17 03/04/18 13:03 03/04/18 13:03 03/04/18 13:03 - Laboratory Result Diagrams: 03/04/18 15:15 03/04/18 15:50 Laboratory results interpreted by me: 03/04/18 03/04/18 03/04/18 10:07 10:07 15:15 WBC 21.8 H 14.4 H RBC 5.32 H RDW 14.3 H Seg Neutrophils % 78.4 H Absolute Neutrophils 11.3 H Abs Neuts (Manual) 15.5 H Abs Monocytes (Manual) 1.5 H Sodium 147.1 H Chloride Carbon Dioxide 17 L Anion Gap 27 H BUN 26 H Glucose 164 H Calcium 10.9 H Direct Bilirubin 0.6 H Total Protein 9.0 H Albumin 5.2 H Urine Protein Urine Ketones Salicylates < 1.0 L Acetaminophen < 10 L 03/04/18 03/04/18 15:18 15:50 WBC RBC RDW Seg Neutrophils % Absolute Neutrophils Abs Neuts (Manual) Abs Monocytes (Manual) Sodium Chloride 108 H Carbon Dioxide 21 L Anion Gap BUN Glucose Calcium Direct Bilirubin Total Protein Albumin Urine Protein 100 H Urine Ketones 20 H Salicylates Acetaminophen - Diagnostic Test Radiology reviewed: Image reviewed - RADIATION DOSE: CT Rad equipment meets quality standard of care and radiation dose reduction techniques were employed. CTDIvol: 9.6 - 14.4 mGy. DLP: 1264 mGy-cm.. LIMITATIONS: Study is limited somewhat due to artifact related to a cholecystectomy FINDINGS: LOWER CHEST: Linear density is identified in the left lung base most consistent with atelectatic changes. LIVER: Normal size. No masses. No dilated ducts. SPLEEN: Normal size. No focal lesions. PANCREAS: No masses. There is fatty infiltration especially at the level of the pancreatic head No significant calcifications. No adjacent inflammation or peripancreatic fluid collections. Pancreatic duct not dilated. GALLBLADDER: Status post cholecystectomy ADRENAL GLANDS: No significant masses or asymmetry. RIGHT KIDNEY AND URETER: No solid masses. No significant calcifications. No hydronephrosis or hydroureter. There is compensatory enlargement of the right kidney. LEFT KIDNEY AND URETER: Atrophic left kidney is identified. No significant calcifications. No hydronephrosis or hydroureter. AORTA AND VESSELS: No aneurysm. No dissection. Renal arteries, SMA, celiac without stenosis. RETROPERITONEUM: No retroperitoneal adenopathy, hemorrhage or masses. BOWEL AND PERITONEAL CAVITY: No masses or inflammatory changes. No free fluid or peritoneal masses. APPENDIX : Normal. PELVIS: No mass. No free fluid. Normal bladder. ABDOMINAL WALL: No masses. Umbilical hernia is identified containing fat. BONES: Patient is status post left hip pinning. There is some chronic appearing deformity of the right hip articulation. There is bony ankylosis of the lumbar spine. OTHER: Multiple collateral venous structures are identified in the anterior and lateral subcutaneous fat. IMPRESSION: No acute findings. Other findings as noted above TECHNICAL DOCUMENTATION: JOB ID: [id number] Quality ID # [id number]: Final reports with documentation of one or more dose reduction techniques (e.g., Automated exposure control, adjustment of the mA and/or kV according to patient size, use of iterative reconstruction technique) 2010 [employer]- All Rights Reserved Reading location - IP/workstation name: [email or web address] Dictated by: CASSIA KENT MD [id number] CC: COURTNEY NORWOOD MD EXAM DESCRIPTION: CT HEAD WITHOUT COMPLETED DATE/TIME: 03/04/2018 11:53 am REASON FOR STUDY: seizure COMPARISON: 01/09/2018 TECHNIQUE: Axial images acquired through the brain without intravenous contrast. Images reviewed with bone, brain and subdural windows. Additional sagittal and coronal reconstructions were generated. Images stored on PACS. All CT scanners at this facility use dose modulation, iterative reconstruction, and/or weight based dosing when appropriate to reduce radiation dose to as low as reasonably achievable (ALARA). [facility]: Dose Right [facility]: CareDose [facility]: Dose Right [facility]: Teradose 4D [facility]: Plum (Formerly Ube) RADIATION DOSE: CT Rad equipment meets quality standard of care and radiation dose reduction techniques were employed. CTDIvol: 53.2 mGy. DLP: 991 mGy-cm. mGy. LIMITATIONS: None. FINDINGS: VENTRICLES: Normal size and contour. CEREBRUM: No masses. No hemorrhage. No midline shift. No evidence for acute infarction. Normal carlson/ white matter differentiation. The previously described area of prior infarction in the left posterior parietal region appears stable. CEREBELLUM: No masses. No hemorrhage. No alteration of density. No evidence for acute infarction. EXTRAAXIAL SPACES: No fluid collections. No masses. ORBITS AND GLOBE: No intra - or extraconal masses. Normal contour of globe without masses. CALVARIUM: No fracture. PARANASAL SINUSES: No fluid or mucosal thickening. SOFT TISSUES: No mass or hematoma. OTHER: No other significant finding. IMPRESSION: Stable findings as compared to the previous study no acute changes. Findings as noted above EVIDENCE OF ACUTE STROKE: NO. COMMENT: Quality ID # 436: Final reports with documentation of one or more dose reduction techniques (e.g., Automated exposure control, adjustment of the mA and/or kV according to patient size, use of iterative reconstruction technique) TECHNICAL DOCUMENTATION: JOB ID: [id number] [employer]- All Rights Reserved Reading location - IP/workstation name: [email or web address] Dictated by: CASSIA KENT MD DD: [id number] CC: COURTNEY NORWOOD MD EXAM DESCRIPTION: CHEST SINGLE VIEW COMPLETED DATE/TIME: 03/04/2018 11:25 am REASON FOR STUDY: pneumonia COMPARISON: CT angio chest 01/17/2012 EXAM PARAMETERS: NUMBER OF VIEWS: One view. TECHNIQUE: Single frontal radiographic view of the chest acquired. RADIATION DOSE: NA LIMITATIONS: Portable technique, rotated towards the JEAN position FINDINGS: LUNGS AND PLEURA: Bandlike scarring left lung base. Right lung clear. No pleural effusion. No pneumothorax. MEDIASTINUM AND HILAR STRUCTURES: No masses. Contour normal. HEART AND VASCULAR STRUCTURES: Borderline cardiomegaly BONES: No acute findings. HARDWARE: None in the chest. OTHER: No other significant finding. IMPRESSION: Bandlike scarring at the left lung base. TECHNICAL DOCUMENTATION: JOB ID: [id number] [employer]- All Rights Reserved Reading location - IP/workstation name: [email or web address] [email or web address] Dictated by: BRENDAN BOLIVAR MD [id number] CC: COURTNEY NORWOOD MD - EKG Interpretation by Me Additional EKG results interpreted by me: 03/04/18 11:21 EKG interpretation 11:04 AM Rate 103, sinus rhythm, sinus tachycardia VA 168, QTC 471, QRS narrow No ST elevations or depressions, patient has T-wave flattening in septal leads, Compared to prior EKG no significant changes other than heart rate elevation Critical Care Note - Critical Care Note Comments: Critical Care Time: 35 minutes Critical care provider statement: Critical care time was exclusive of: Separately billable procedures and treating other patients and teaching time Critical care was time spent personally by me on the following activities: Blood draw for specimens, development of treatment plan with patient or surrogate, evaluation of patient's response to treatment, examination of patient , obtaining history from patient or surrogate, ordering and performing treatments and interventions, ordering and review of laboratory studies, ordering and review of radiographic studies, pulse oximetry, re-evaluation of patient's condition and review of old charts I assumed direction of critical care for this patient from another provider in my specialty: no Discharge - Discharge Clinical Impression: Seizure, Dehydration Vomiting Qualifiers: Vomiting type: bilious vomiting Nausea presence: with nausea Qualified Code(s) : R11.14 - Bilious vomiting Condition: Stable Instructions: Vomiting ([facility]) Additional Instructions: You have been diagnosed today with seizure as well as dehydration vomiting Please continue to take fluids, please use Zofran for nausea as prescribed Please continue with all of your medications Please come back if there worsening fevers, chills, nausea vomiting, abdominal pain Otherwise follow-up with your primary care physician Prescriptions: Ondansetron [Zofran Odt 4 mg Tablet] 1 - 2 tab PO Q4H PRN #15 tab.rapdis PRN Reason: For Nausea/Vomiting Referrals: LINDSAY SHORE MD [Primary Care Provider] - Follow up as needed
[2018-03-04] MEDS ORDERED: LORAZEPAM INJ 2 MG/1 ML VIAL ONE (09:56)
[2018-03-04] MEDS ORDERED: NORMAL SALINE 1000 ML 1,000 ML IV ONE ×2 (10:05→12:02)
[2018-03-04] MEDS ORDERED: PROMETHAZINE HCL INJ 25 MG/1 ML VIAL IV ONE (10:13)
[2018-03-04] MEDS ORDERED: PROMETHAZINE HCL INJ 25 MG/1 ML VIAL ONE (10:14)
[2018-03-04 10:31] LABS: HEMATOCRIT 46.2 % (36.0-47.0); HEMOGLOBIN 15.1 g/dL (12.0-15.5); MEAN CORPUSCULAR HEMOGLOBIN 28.5 pg (27.0-33.4); MEAN CORPUSCULAR HGB CONC 32.8 g/dL (32.0-36.0); MEAN CORPUSCULAR VOLUME 87 fl (80-97); PLATELET COUNT 274 10^3/uL (150-450); RED BLOOD COUNT 5.32 10^6/uL (3.72-5.28); RED CELL DISTRIBUTION WIDTH 14.3 % (11.5-14.0); WHITE BLOOD COUNT 21.8 10^3/uL (4.0-10.5)
[2018-03-04 10:50] LABS: ABSOLUTE LYMPHOCYTES# (MANUAL) 4.6 10^3/uL (0.5-4.7); ABSOLUTE MONOCYTES # (MANUAL) 1.5 10^3/uL (0.1-1.4); ABSOLUTE NEUTROPHILS# (MANUAL) 15.5 10^3/uL (1.7-8.2); BASOPHILS % (MANUAL) 0 % (0-2); EOSINOPHILS % (MANUAL) 1 % (0-6); LYMPHOCYTES % (MANUAL) 21 % (13-45); MONOCYTES % (MANUAL) 7 % (3-13); SEGMENTED NEUTROPHILS % (MAN) 71 % (42-78); TOTAL CELLS COUNTED 100
[2018-03-04 10:52] LABS: ANISOCYTOSIS SLIGHT; PLATELET COMMENT ADEQUATE
[2018-03-04] MEDS ORDERED: ONDANSETRON HCL INJ/PF 4 MG/2 ML SDV IV ONE (10:58)
[2018-03-04 10:59] LABS: ALANINE AMINOTRANSFERASE 19 U/L (9-52); ALBUMIN 5.2 g/dL (3.5-5.0); ALKALINE PHOSPHATASE 119 U/L (38-126); ASPARTATE AMINO TRANSFERASE 21 U/L (14-36); BILIRUBIN,DIRECT 0.6 mg/dL (0.0-0.4); BILIRUBIN,TOTAL 0.7 mg/dL (0.2-1.3); BLOOD UREA NITROGEN 26 mg/dL (7-20); CALCIUM 10.9 mg/dL (8.4-10.2); CARBON DIOXIDE 17 mmol/L (22-30); CHLORIDE 103 mmol/L (98-107); GLUCOSE 164 mg/dL (75-110); POTASSIUM 4.6 mmol/L (3.6-5.0)
[2018-03-04 11:03] LABS: ACETAMINOPHEN < 10 ug/mL (10-30); ALCOHOL < 10 mg/dL (NONE DETECTED); SALICYLATE < 1.0 mg/dL (2.0-20.0); SODIUM 147.1 mmol/L (137-145)
[2018-03-04 11:05] LABS: ANION GAP 27 (5-19)
--- NOTE | 2018-03-04 11:35 | RADIOLOGY REPORT (SQ) ---
EXAM DESCRIPTION: CHEST SINGLE VIEW COMPLETED DATE/TIME: 03/04/2018 11:25 am REASON FOR STUDY: pneumonia COMPARISON: CT angio chest 01/17/2012 EXAM PARAMETERS: NUMBER OF VIEWS: One view. TECHNIQUE: Single frontal radiographic view of the chest acquired. RADIATION DOSE: NA LIMITATIONS: Portable technique, rotated towards the JEAN position FINDINGS: LUNGS AND PLEURA: Bandlike scarring left lung base. Right lung clear. No pleural effusio n. No pneumothorax. MEDIASTINUM AND HILAR STRUCTURES: No masses. Contour normal. HEART AND VASCULAR STRUCTURES: Borderline cardiomegaly BONES: No acute findings. HARDWARE: None in the chest. OTHER: No other significant finding. IMPRESSION: Bandlike scarring at the left lung base. TECHNICAL DOCUMENTATION: JOB ID: [id number] [employer]- All Rights Reserved Reading location - IP/workstation name: [email or web address]
--- NOTE | 2018-03-04 12:10 | RADIOLOGY REPORT (SQ) ---
EXAM DESCRIPTION: CT HEAD WITHOUT COMPLETED DATE/TIME: 03/04/2018 11:53 am REASON FOR STUDY: seizure COMPARISON: 01/09/2018 TECHNIQUE: Axial images acquired through the brain without intravenous contrast. Images reviewed wi th bone, brain and subdural windows. Additional sagittal and coronal reconstructions were generated. Images stored on PACS. All CT scanners at this facility use dose modulation, iterative reconstruction, and/or weight based d osing when appropriate to reduce radiation dose to as low as reasonably achievable (ALARA). [facility]: Dose Right [facility]: CareDose [facility]: Dose Right [facility]: Teradose 4D [facility]: [employer] RADIATION DOSE: CT Rad equipment meets quality standard of care and radiation dose reduction techniq ues were employed. CTDIvol: 53.2 mGy. DLP: 991 mGy-cm. mGy. LIMITATIONS: None. FINDINGS: VENTRICLES: Normal size and contour. CEREBRUM: No masses. No hemorrhage. No midline shift. No evidence for acute infarction. Normal gra y/white matter differentiation. The previously described area of prior infarction in the left meter reader inspector ior parietal region appears stable. CEREBELLUM: No masses. No hemorrhage. No alteration of density. No evidence for acute infarction. EXTRAAXIAL SPACES: No fluid collections. No masses. ORBITS AND GLOBE: No intra- or extraconal masses. Normal contour of globe without masses. CALVARIUM: No fracture. PARANASAL SINUSES: No fluid or mucosal thickening. SOFT TISSUES: No mass or hematoma. OTHER: No other significant finding. IMPRESSION: Stable findings as compared to the previous study no acute changes. Findings as noted a juana EVIDENCE OF ACUTE STROKE: NO. COMMENT: Quality ID # [id number]: Final reports with documentation of one or more dose reduction techniques (e.g., Automated exposure control, adjustment of the mA and/or kV according to patient size, use of iterative reconstruction technique) TECHNICAL DOCUMENTATION: JOB ID: [id number] [employer]- All Rights Reserved Reading location - IP/workstation name: [email or web address]
--- NOTE | 2018-03-04 12:24 | RADIOLOGY REPORT (SQ) ---
EXAM DESCRIPTION: CT ABD/PELVIS WITH IV ONLY COMPLETED DATE/TIME: 03/04/2018 11:53 am REASON FOR STUDY: vomiting COMPARISON: None. TECHNIQUE: CT scan of the abdomen and pelvis performed using helical scanning technique with dynamic intravenous contrast injection. No oral contrast. Images reviewed with lung, soft tissue, and bone windows. Reconstructed coronal and sagittal MPR images reviewed. Delayed images for evaluation of the urinary system also acquired. All images stored on PACS. All CT scanners at this facility use dose modulation, iterative reconstruction, and/or weight based d osing when appropriate to reduce radiation dose to as low as reasonably achievable (ALARA). [facility]: Dose Right [facility]: CareDose [facility]: Dose Right [facility]: Teradose 4D [facility]: [employer] CONTRAST TYPE AND DOSE: 70 mL Isovue 370 RENAL FUNCTION: Creatinine 0.79 RADIATION DOSE: CT Rad equipment meets quality standard of care and radiation dose reduction techniq ues were employed. CTDIvol: 9.6 - 14.4 mGy. DLP: 1264 mGy-cm.. LIMITATIONS: Study is limited somewhat due to artifact related to a cholecystectomy FINDINGS: LOWER CHEST: Linear density is identified in the left lung base most consistent with atele ctatic changes. LIVER: Normal size. No masses. No dilated ducts. SPLEEN: Normal size. No focal lesions. PANCREAS: No masses. There is fatty infiltration especially at the level of the pancreatic head No s ignificant calcifications. No adjacent inflammation or peripancreatic fluid collections. Pancreatic d uct not dilated. GALLBLADDER: Status post cholecystectomy ADRENAL GLANDS: No significant masses or asymmetry. RIGHT KIDNEY AND URETER: No solid masses. No significant calcifications. No hydronephrosis or hyd roureter. There is compensatory enlargement of the right kidney. LEFT KIDNEY AND URETER: Atrophic left kidney is identified. No significant calcifications. No hyd ronephrosis or hydroureter. AORTA AND VESSELS: No aneurysm. No dissection. Renal arteries, SMA, celiac without stenosis. RETROPERITONEUM: No retroperitoneal adenopathy, hemorrhage or masses. BOWEL AND PERITONEAL CAVITY: No masses or inflammatory changes. No free fluid or peritoneal masses. APPENDIX: Normal. PELVIS: No mass. No free fluid. Normal bladder. ABDOMINAL WALL: No masses. Umbilical hernia is identified containing fat. BONES: Patient is status post left hip pinning. There is some chronic appearing deformity of the rig ht hip articulation. There is bony ankylosis of the lumbar spine. OTHER: Multiple collateral venous structures are identified in the anterior and lateral subcutaneous fat. IMPRESSION: No acute findings. Other findings as noted above TECHNICAL DOCUMENTATION: JOB ID: [id number] Quality ID # [id number]: Final reports with documentation of one or more dose reduction techniques (e.g., Au tomated exposure control, adjustment of the mA and/or kV according to patient size, use of iterative reconstruction technique) 2010 [employer]- All Rights Reserved Reading location - IP/workstation name: [email or web address]
[2018-03-04 15:34] LABS: ABSOLUTE BASOPHILS # (AUTO) 0.1 10^3/uL (0.0-0.2); ABSOLUTE NEUT (AUTO) 11.3 10^3/uL (1.7-8.2); BASOPHILS % (AUTO) 0.5 % (0-2); EOSINOPHILS % (AUTO) 0.1 % (0-6); HEMATOCRIT 40.2 % (36.0-47.0); HEMOGLOBIN 13.1 g/dL (12.0-15.5); LYMPHOCYTES % (AUTO) 13.8 % (13-45); MEAN CORPUSCULAR HEMOGLOBIN 27.7 pg (27.0-33.4); MEAN CORPUSCULAR HGB CONC 32.7 g/dL (32.0-36.0); MEAN CORPUSCULAR VOLUME 85 fl (80-97); MONOCYTES % (AUTO) 7.2 % (3-13); PLATELET COUNT 196 10^3/uL (150-450); RED BLOOD COUNT 4.74 10^6/uL (3.72-5.28); SEGMENTED NEUTROPHILS % (AUTO) 78.4 % (42-78); TOTAL CELLS COUNTED % (AUTO) 100 %; WHITE BLOOD COUNT 14.4 10^3/uL (4.0-10.5)
[2018-03-04 16:08] LABS: APPEARANCE,URINE CLEAR; BILIRUBIN,URINE NEGATIVE (NEGATIVE); COLOR,URINE YELLOW; GLUCOSE, URINE NEGATIVE (NEGATIVE); KETONES,URINE 20 mg/dL (NEGATIVE); LEUKOCYTE ESTERASE,URINE NEGATIVE (NEGATIVE); NITRITE,URINE NEGATIVE (NEGATIVE); PROTEIN,URINE 100 mg/dL (NEGATIVE); URINE SPECIFIC GRAVITY 1.032; UROBILINOGEN,URINE NEGATIVE mg/dL (<2.0)
[2018-03-04 16:09] LABS: URINE AMPHETAMINES SCREEN NEGATIVE; URINE BARBITURATES SCREEN UNCONFIRMED POSITIVE; URINE BENZODIAZEPINES SCREEN NEGATIVE; URINE COCAINE SCREEN NEGATIVE; URINE MARIJUANA (THC) SCREEN NEGATIVE; URINE METHADONE SCREEN NEGATIVE; URINE PHENCYCLIDINE SCREEN NEGATIVE
[2018-03-04 16:27] LABS: ANION GAP 14 (5-19); BLOOD UREA NITROGEN 19 mg/dL (7-20); CALCIUM 8.7 mg/dL (8.4-10.2); CARBON DIOXIDE 21 mmol/L (22-30); CHLORIDE 108 mmol/L (98-107); GLUCOSE 87 mg/dL (75-110); POTASSIUM 4.1 mmol/L (3.6-5.0); SODIUM 142.7 mmol/L (137-145)
[2018-03-04 17:54] VITALS: BP 170/81
--- NOTE | 2018-03-04 23:11 | EKG REPORT ---
SEVERITY:- BORDERLINE ECG - SINUS TACHYCARDIA BORDERLINE T ABNORMALITIES, ANTERIOR LEADS : Confirmed by: Dejah Schwartz 04-Mar-2018 23:10:59
== END 2018-03-04 17:54 | disposition home or self-care (01) ==
LOC: ER 09:02
DX: R11.14 Bilious vomiting (principal); E86.0 Dehydration; R56.9 Unspecified convulsions; I25.10 Atherosclerotic heart disease of native coronary artery without angina pectoris; E78.00 Pure hypercholesterolemia, unspecified; I10 Essential (primary) hypertension; E11.9 Type 2 diabetes mellitus without complications; G35 Multiple sclerosis; I25.2 Old myocardial infarction; Z86.14 Personal history of Methicillin resistant Staphylococcus aureus infection; Z90.49 Acquired absence of other specified parts of digestive tract; Z90.710 Acquired absence of both cervix and uterus; Z88.2 Allergy status to sulfonamides
CPT/HCPCS: 93005; 99284; 96361; 96374; 96375; 36415; 80307 ×4; 83690; 85025; 80048; 80053; 81001; 84484; 71045; 70450; 74177; 93010; J2550; J2405; J7030

== ENCOUNTER 2018-03-06 08:19 | Emergency (ER) | payer MEDICARE, MEDICAID ==
[2018-03-06 09:30] LABS: ABSOLUTE BASOPHILS # (AUTO) 0.1 10^3/uL (0.0-0.2); ABSOLUTE EOSINOPHILS # (AUTO) 0.3 10^3/uL (0.0-0.6); ABSOLUTE LYMPHOCYTES (AUTO) 2.1 10^3/uL (0.5-4.7); ABSOLUTE MONOCYTES (AUTO) 1.1 10^3/uL (0.1-1.4); ABSOLUTE NEUT (AUTO) 8.7 10^3/uL (1.7-8.2); BASOPHILS % (AUTO) 0.9 % (0-2); EOSINOPHILS % (AUTO) 2.4 % (0-6); HEMOGLOBIN 12.6 g/dL (12.0-15.5); LYMPHOCYTES % (AUTO) 17.1 % (13-45); MEAN CORPUSCULAR HEMOGLOBIN 27.7 pg (27.0-33.4); MEAN CORPUSCULAR HGB CONC 33.2 g/dL (32.0-36.0); MEAN CORPUSCULAR VOLUME 84 fl (80-97); MONOCYTES % (AUTO) 8.9 % (3-13); PLATELET COUNT 156 10^3/uL (150-450); RED BLOOD COUNT 4.55 10^6/uL (3.72-5.28); RED CELL DISTRIBUTION WIDTH 14.2 % (11.5-14.0); SEGMENTED NEUTROPHILS % (AUTO) 70.7 % (42-78); TOTAL CELLS COUNTED % (AUTO) 100 %; WHITE BLOOD COUNT 12.4 10^3/uL (4.0-10.5)
--- NOTE | 2018-03-06 10:01 | RADIOLOGY REPORT (SQ) ---
EXAM DESCRIPTION: CHEST SINGLE VIEW COMPLETED DATE/TIME: 03/06/2018 9:46 am REASON FOR STUDY: chest pain COMPARISON: 09/06/2014, 04/19/2016, 03/04/2018 EXAM PARAMETERS: NUMBER OF VIEWS: One view. TECHNIQUE: Single frontal radiographic view of the chest acquired. RADIATION DOSE: NA LIMITATIONS: None. FINDINGS: LUNGS AND PLEURA: Scarring left lung base unchanged 2013. No acute infiltrates. No pleur al effusion or pneumothorax. MEDIASTINUM AND HILAR STRUCTURES: No masses. Contour normal. HEART AND VASCULAR STRUCTURES: Mild cardiomegaly. BONES: No acute findings. HARDWARE: Clips right upper quadrant post cholecystectomy OTHER: No other significant finding. IMPRESSION: No acute findings TECHNICAL DOCUMENTATION: JOB ID: [id number] [employer]- All Rights Reserved Reading location - IP/workstation name: [email or web address]
[2018-03-06 10:36] LABS: ALANINE AMINOTRANSFERASE 28 U/L (9-52); ALBUMIN 4.1 g/dL (3.5-5.0); ALKALINE PHOSPHATASE 102 U/L (38-126); ANION GAP 14 (5-19); ASPARTATE AMINO TRANSFERASE 20 U/L (14-36); BILIRUBIN,DIRECT 0.3 mg/dL (0.0-0.4); BILIRUBIN,TOTAL 0.3 mg/dL (0.2-1.3); BLOOD UREA NITROGEN 21 mg/dL (7-20); CALCIUM 9.7 mg/dL (8.4-10.2); CARBON DIOXIDE 26 mmol/L (22-30); CHLORIDE 106 mmol/L (98-107); CREATINE KINASE 107 U/L (30-135); GLUCOSE 155 mg/dL (75-110); LIPASE 73.8 U/L (23-300); POTASSIUM 4.2 mmol/L (3.6-5.0); TOTAL PROTEIN 7.3 g/dL (6.3-8.2)
[2018-03-06 10:43] LABS: CREATINE KINASE MB 1.85 ng/mL (<4.55); TROPONIN I < 0.012 ng/mL
--- NOTE | 2018-03-06 10:55 | ER Document Report ---
ED General - General Chief Complaint: Back Pain Stated Complaint: WEAKNESS Time Seen by Provider: 03/06/18 08:49 Notes: 62-year-old female presents emergency department complaining of chest pain that has been constant for the past 2 days. States that she has intermittently had this pain for several years it is no better or worse than previously. She does not have a history of MA or stenting. She did take nitroglycerin for it and it did resolve. Patient also took a full-strength aspirin. Denies any shortness of breath. Does not recall when her last stress test was, does not think she has ever had a heart catheterization. Patient also complains of vomiting and diarrhea that has been going on for the past 2 weeks and back pain that has been going on for the past several years and is completely unchanged. Patient is quite concerned that she has been out of some of her chronic neurologic medications including her antiepileptics since Dr. Avila retired. Patient is requesting a refill of her Depakote 500 mg twice a day and Flexeril 10 mg 3 times daily. Patient also states that she is out of her Imdur however when we look at her prescription bottle that shows that she has 2 more refills left on it so she is aware that she will need to have this refilled. Patient also requests to have her Ativan refilled however she has been out of it for 2 weeks and we discussed that in the emergency department we do not refill chronic controlled substance prescriptions. TRAVEL OUTSIDE OF THE [place] IN LAST 30 DAYS: No - Related Data Allergies/Adverse Reactions: fentanyl [From Duragesic] Allergy (Severe, Verified 03/04/18 09:03) Severe rash interferon beta-1b [From Betaseron] Allergy (Severe, Verified 03/04/18 09:03) Seizures morphine [Morphine] Allergy (Severe, Verified 03/04/18 09:03) Swelling, rash, difficulty breathing nalbuphine HCl [From Nubain] Allergy (Severe, Verified 03/04/18 09:03) Swelling, rash, Diff. breathing, Tachycardia quetiapine fumarate [From Seroquel] Allergy (Severe, Verified 03/04/18 09:03) crazy levofloxacin [From Levaquin] Allergy (Intermediate, Verified 03/04/18 09:03) Hives Sulfa (Sulfonamide Antibiotics) Allergy (Intermediate, Verified 03/04/18 09:03) N&V aspirin [Aspirin] Adverse Reaction (Verified 03/04/18 09:03) pt has von [employer] Past Medical History - General Information source: Patient - Social History Smoking Status: Never Smoker Chew tobacco use (# tins/day): No Frequency of alcohol use: None Drug Abuse: None Family History: Malignancy - Dad and brother both from cancer Patient has suicidal ideation: No Patient has homicidal ideation: No - Past Medical History Cardiac Medical History: Reports: Hx Coronary Artery Disease, Hx Heart Attack - 2007 mild , Hx Hypercholesterolemia, Hx Hypertension Pulmonary Medical History: Reports: Hx Asthma, Hx Bronchitis, Hx COPD, Hx Pneumonia - 2010 x 2 Denies: Hx Tuberculosis Neurological Medical History: Reports: Hx Seizures. Denies: Hx Cerebrovascular Accident Endocrine Medical History: Reports: Hx Diabetes Mellitus Type 2 Renal/ Medical History: Reports: Hx Kidney Stones. Denies: Hx Peritoneal Dialysis Musculoskeltal Medical History: Reports Hx Arthritis, Reports Hx Multiple Sclerosis Skin Medical History: Reports Hx MRSA Psychiatric Medical History: Reports: Hx Bipolar Disorder Past Surgical History: Reports: Hx Cholecystectomy, Hx Hysterectomy, Hx Orthopedic Surgery - Bilateral hips; does not have rt hip, left hip repair. Denies: Hx Pacemaker - Immunizations Hx Diphtheria, Pertussis, Tetanus Vaccination: Yes Hx Pneumococcal Vaccination: 03/17/13 Review of Systems - Review of Systems Constitutional: No symptoms reported EENT: No symptoms reported Cardiovascular: See HPI, Chest pain Respiratory: No symptoms reported Gastrointestinal: See HPI, Diarrhea, Nausea, Vomiting Genitourinary: No symptoms reported Musculoskeletal: Back pain - Chronic for over a year, has an appointment with Dr. Gutierrez coming up. -: Yes All other systems reviewed and negative Physical Exam - Vital signs Vitals: Resp Pulse Ox 19 98 03/06/18 08:36 03/06/18 08:36 Temp Pulse Resp BP Pulse Ox 97.9 F 16 150/72 H 98 03/06/18 08:56 03/06/18 09:01 03/06/18 08:37 03/06/18 09:01 Interpretation: Hypertensive - Notes Notes: GENERAL: Alert, interacts well. Overweight. HEAD: Normocephalic, atraumatic EYES: Pupils equal, round and reactive to light, extraocular movements intact. ENT: Oral mucosa moist, tongue midline. NECK: Full range of motion, supple, trachea midline. LUNGS: Clear to auscultation bilaterally, no wheezes, rales or rhonchi, no respiratory distress. HEART: Regular rate and rhythm, no murmurs, gallops, rubs. ABDOMEN: Soft, mild diffuse tenderness to palpation without guarding, rigidity or rebounding, nondistended, bowel sounds present in all 4 quadrants. EXTREMITIES: Moves all 4 extremities spontaneously, no edema, radial and dorsalis pedis pulses 2/4 bilaterally. No cyanosis. NEUROLOGICAL: Alert and oriented x3, normal speech, no facial droop. PSYCH: Normal mood, normal affect. SKIN: Warm, Dry, normal turgor, no rashes or lesions noted. Course - Re-evaluation Re-evalutation: 03/06/18 10:54 Patient was actually seen in the emergency department twice on the for complaints of abdominal pain as well as nausea vomiting and diarrhea, or her leukocytosis continues to improve it is currently 12.4 there is no left shift, CMP does not show any evidence of dehydration, renal function is intact, cardiac enzymes are negative they were 0.014 on the they are now completely undetectable. This chest pain has been constant since her last visit. Chest x-ray shows no acute process. Lipase is normal. 03/06/18 10:[address] scan of the abdomen and pelvis performed on the and it did not show any acute process. Patient's abdominal exam is not suspicious for any acute surgical etiology at this time. Given the patient's chest pain has been constant for 2 days and she had negative cardiac enzymes 2 days ago and another set of negative cardiac enzymes today I do not feel patient needs to be admitted for further cardiac evaluation. 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 I will refill her Depakote and her Flexeril for her seizures and her muscle spasms from her MS. Patient is once again made aware that we do not refill chronic controlled substances from the emergency department and she will have to follow-up with her new primary care physician Dr. Horowitz to see if they think her Ativan needs to be refilled. EKG is nonischemic. Patient will be discharged to home. - Vital Signs Vital signs: Temp Pulse Resp BP Pulse Ox 97.9 F 16 150/72 H 98 03/06/18 08:56 03/06/18 09:01 03/06/18 08:37 03/06/18 09:01 - Laboratory Result Diagrams: 03/06/18 08:30 03/06/18 09:52 Laboratory results interpreted by me: 03/06/18 03/06/18 08:30 09:52 WBC 12.4 H RDW 14.2 H Absolute Neutrophils 8.7 H Sodium 146.0 H BUN 21 H Glucose 155 H - EKG Interpretation by Me Additional EKG results interpreted by me: 03/06/18 11:03 EKG shows sinus rhythm at a rate of 66, normal axis, normal intervals, no ST segment elevations or depressions, there are T-wave inversions in V2 and V3 which are unchanged from prior EKG on 03/04/2018 per my interpretation. Discharge - Discharge Clinical Impression: Chronic stable angina, Medication refill Vomiting Qualifiers: Vomiting type: unspecified Vomiting Intractability: non-intractable Nausea presence: with nausea Qualified Code(s): R11.2 - Nausea with vomiting, unspecified Diarrhea Qualifiers: Diarrhea type: unspecified type Qualified Code(s): R19.7 - Diarrhea, unspecified Condition: Stable Disposition: HOME, SELF-CARE Additional Instructions: Today we did not find any sign of a heart attack. I suspect this is your stable angina. It is very important that you follow-up with Dr. Cochran as an outpatient to see if he thinks you need a stress test. So long as her pain continues to go away with the nitroglycerin you do not need to return to the emergency department but if your pain worsens or does not go away with nitroglycerin please return. I have written you refills for your prescriptions of Depakote and Flexeril. You will need to see Dr. Horowitz to discuss refilling your other chronic medications that you have been out of for 2 weeks. You should contact the pharmacy to refill your Imdur, your bottle says that you have 2 more refills left. There should be no difficulty getting this refilled. Prescriptions: Cyclobenzaprine HCl [Flexeril 10 mg Tablet] 10 mg PO TIDP PRN #15 tab PRN Reason: Divalproex Sodium [Depakote] 500 mg PO BID #30 tablet.dr Referrals: SABAS TSANG MD [NO LOCAL MD] - Follow up in 1 week
[2018-03-06 11:19] VITALS: BP 155/81
--- NOTE | 2018-03-06 20:54 | EKG REPORT ---
SEVERITY:- ABNORMAL ECG - SINUS RHYTHM CONSIDER ANTERIOR INFARCT NONSPECIFIC T ABNORMALITIES, ANT-LAT LEADS : Confirmed by: Dejah Schwartz 06-Mar-2018 20:53:56
== END 2018-03-06 12:15 | disposition home or self-care (01) ==
LOC: ER 08:19
DX: Z76.0 Encounter for issue of repeat prescription (principal); R11.2 Nausea with vomiting, unspecified; R19.7 Diarrhea, unspecified; I25.10 Atherosclerotic heart disease of native coronary artery without angina pectoris; M54.9 Dorsalgia, unspecified; R53.1 Weakness; R07.9 Chest pain, unspecified; I25.2 Old myocardial infarction; Z79.899 Other long term (current) drug therapy; I10 Essential (primary) hypertension; J44.9 Chronic obstructive pulmonary disease, unspecified; E11.9 Type 2 diabetes mellitus without complications
CPT/HCPCS: 36415; 71045; 80053; 82550; 82553; 83690; 84484; 85025; 93005; 93010; 99284

== ENCOUNTER 2018-08-12 23:33 | Emergency (ER) | payer MEDICARE, MEDICAID ==
--- NOTE | 2018-08-12 23:41 | ER Document Report ---
ED General - General Stated Complaint: HEADACHE,NAUSEA,VOMITING Time Seen by Provider: 08/12/18 23:39 Notes: Patient is a 63-year-old female that presents to the emergency department for chief complaint of headache, nausea and vomiting. Patient reports that she has had a migraine type headache since this past , with associated nausea and vomiting, she states is typical of her migraines. Describes it as a 6 out of 10. Not the worst headache she has had. She last vomited at 3 PM today. She did see her primary care physician and was placed on antibiotic, she thought was for urinary tract infection, she brought the packaging it was azithromycin. She states she has had dysuria and hematuria, and urinary frequency since this all started. She denies having any flank pain, abdominal pain, chest pain, shortness of breath or difficulty breathing. She has had subjective fevers at home as well. Past Medical History: Migraine headaches, hypertension, diabetes mellitus Past Surgical History: Cholecystectomy, hysterectomy, left hip fracture and repair, right femoral head resection for osteomyelitis Social History: Denies current tobacco, alcohol or drug use. Family History: Reviewed and noncontributory for presenting illness Allergies: Reviewed, see documented allergy list. REVIEW OF SYSTEMS: Other than noted above, the 12 point review of systems was reviewed with the patient and were negative, all pertinent findings are included in the HPI. PHYSICAL EXAMINATION: Vital signs reviewed, nursing noted reviewed. GENERAL: Well-appearing, well-nourished and in no acute distress. HEAD: Atraumatic, normocephalic. EYES: Eyes appear normal, extraocular movements intact, sclera anicteric, conjunctiva are normal. ENT: nares patent, oropharynx clear without exudates. Moist mucous membranes. NECK: Normal range of motion, supple without lymphadenopathy LUNGS: Breath sounds clear to auscultation bilaterally and equal. No wheezes rales or rhonchi. HEART: Regular rate and rhythm without murmurs ABDOMEN: Soft, nontender, normoactive bowel sounds. No rebound, guarding, or rigidity. No masses appreciated. EXTREMITIES: Nontender, range of motion limited in the right lower extremity, secondary to patient having surgery on her right hip, that removed her femoral head. The rest of her extremities are unremarkable and good range of motion. NEUROLOGICAL: No focal neurological deficits. Moves all extremities spontaneously Motor and sensory grossly intact on exam. PSYCH: Normal mood, normal affect. SKIN: Warm, Dry, normal turgor, no rashes or lesions noted on exposed skin TRAVEL OUTSIDE OF THE [place] IN LAST 30 DAYS: No - Related Data Allergies/Adverse Reactions: fentanyl [From Duragesic] Allergy (Severe, Verified 03/04/18 09:03) Severe rash interferon beta-1b [From Betaseron] Allergy (Severe, Verified 03/04/18 09:03) Seizures morphine [Morphine] Allergy (Severe, Verified 03/04/18 09:03) Swelling, rash, difficulty breathing nalbuphine HCl [From Nubain] Allergy (Severe, Verified 03/04/18 09:03) Swelling, rash, Diff. breathing, Tachycardia quetiapine fumarate [From Seroquel] Allergy (Severe, Verified 03/04/18 09:03) crazy levofloxacin [From Levaquin] Allergy (Intermediate, Verified 03/04/18 09:03) Hives Sulfa (Sulfonamide Antibiotics) Allergy (Intermediate, Verified 03/04/18 09:03) N&V aspirin [Aspirin] Adverse Reaction (Verified 03/04/18 09:03) pt has von willebrands Past Medical History - Social History Smoking Status: Never Smoker Family History: Malignancy - Dad and brother both from cancer - Past Medical History Cardiac Medical History: Reports: Hx Coronary Artery Disease, Hx Heart Attack - 2007 mild , Hx Hypercholesterolemia, Hx Hypertension Pulmonary Medical History: Reports: Hx Asthma, Hx Bronchitis, Hx COPD, Hx Pneumonia - 2010 x 2 Denies: Hx Tuberculosis Neurological Medical History: Reports: Hx Seizures. Denies: Hx Cerebrovascular Accident Endocrine Medical History: Reports: Hx Diabetes Mellitus Type 2 Renal/ Medical History: Reports: Hx Kidney Stones. Denies: Hx Peritoneal Dialysis Musculoskeletal Medical History: Reports Hx Arthritis, Reports Hx Multiple Sclerosis Skin Medical History: Reports Hx MRSA Psychiatric Medical History: Reports: Hx Bipolar Disorder Past Surgical History: Reports: Hx Cholecystectomy, Hx Hysterectomy, Hx Orthopedic Surgery - Bilateral hips; does not have rt hip, left hip repair. Denies: Hx Pacemaker - Immunizations Hx Diphtheria, Pertussis, Tetanus Vaccination: Yes Hx Pneumococcal Vaccination: 03/17/13 Physical Exam - Vital signs Vitals: Temp Pulse Resp Pulse Ox 100.1 F 97 15 96 08/12/18 23:39 08/12/18 23:39 08/12/18 23:39 08/12/18 23:39 Course - Re-evaluation Re-evalutation: Patient seen and examined vital signs reviewed. Laboratory data and imaging were ordered as appropriate for the patient's presenting symptoms and complaint, with consideration of any critical or life threatening conditions that may be associated with their obtained history and exam as noted above. Patient was treated with IV fluids, Reglan, magnesium for her headache and nausea Results were reviewed when available and demonstrated leukocytosis, and a UA consistent with urinary tract infection, patient was then given a dose of Rocephin 1 g IV, prior cultures reviewed, and was sensitive to ceftriaxone, she was still having some nausea but her headache was resolving, therefore she was given additional Zofran 4 mg for her nausea. The patient was re-evaluated and was improved overall Evaluation was most consistent with urinary tract infection, migraine headache, leukocytosis, will plan to discharge the patient home on cefdinir 300mg twice daily for 7 days, and Zofran 4 mg ODT, to have her follow-up with her primary care physician. Results were discussed with the patient at this point, after careful consideration I feel that that patient can be discharged from the emergency department, the patient was educated treatments and reasons to return to the emergency department based on their presumed diagnosis as noted above, they were advised to followup with a primary care physician in 2-3 days. Patient was agreeable to plan of care. *Note is created using voice recognition software and may contain spelling, syntax or grammatical errors. Laboratory 08/13/18 08/13/18 08/13/18 00:15 00:15 00:15 WBC 20.6 H RBC 4.92 Hgb 14.3 Hct 40.9 MCV 83 MCH 29.0 MCHC 34.9 RDW 14.3 H Plt Count 125 L Total Counted 100 Seg Neutrophils % Not Reportable Seg Neuts % (Manual) 79 H Band Neutrophils % 3 Lymphocytes % Not Reportable Lymphocytes % (Manual) 11 L Monocytes % Not Reportable Monocytes % (Manual) 7 Eosinophils % Not Reportable Eosinophils % (Manual) 0 Basophils % Not Reportable Basophils % (Manual) 0 Absolute Neutrophils Not Reportable Abs Neuts (Manual) 16.9 H Absolute Lymphocytes Not Reportable Abs Lymphs (Manual) 2.3 Absolute Monocytes Not Reportable Abs Monocytes (Manual) 1.4 Absolute Eosinophils Not Reportable Absolute Eos (Manual) 0.0 Absolute Basophils Not Reportable Abs Basophils (Manual) 0.0 Platelet Comment DECREASED Anisocytosis SLIGHT Sodium Cancelled Potassium Cancelled Chloride Cancelled Carbon Dioxide Cancelled Anion Gap Cancelled BUN Cancelled Creatinine Cancelled Est GFR ( Amer) Cancelled Est GFR (Non-Af Amer) Cancelled Glucose Cancelled Calcium Cancelled Total Bilirubin Cancelled Direct Bilirubin Cancelled Neonat Total Bilirubin Cancelled Neonat Direct Bilirubin Cancelled Neonat Indirect Bili Cancelled AST Cancelled ALT Cancelled Alkaline Phosphatase Cancelled Troponin I Cancelled Total Protein Cancelled Albumin Cancelled Lipase Cancelled Urine Color Urine Appearance Urine pH Ur Specific Cunningham Urine Protein Urine Glucose (UA) Urine Ketones Urine Blood Urine Nitrite Urine Bilirubin Urine Urobilinogen Ur Leukocyte Esterase Urine WBC (Auto) Urine RBC (Auto) U Hyaline Cast (Auto) Urine Bacteria (Auto) Squamous Epi Cells Auto Urine Mucus (Auto) Urine Ascorbic Acid 08/13/18 08/13/18 08/13/18 01:00 01:05 01:05 WBC RBC Hgb Hct MCV MCH MCHC RDW Plt Count Total Counted Seg Neutrophils % Seg Neuts % (Manual) Band Neutrophils % Lymphocytes % Lymphocytes % (Manual) Monocytes % Monocytes % (Manual) Eosinophils % Eosinophils % (Manual) Basophils % Basophils % (Manual) Absolute Neutrophils Abs Neuts (Manual) Absolute Lymphocytes Abs Lymphs (Manual) Absolute Monocytes Abs Monocytes (Manual) Absolute Eosinophils Absolute Eos (Manual) Absolute Basophils Abs Basophils (Manual) Platelet Comment Anisocytosis Sodium 137.1 Potassium 4.0 Chloride 100 Carbon Dioxide 21 L Anion Gap 16 BUN 17 Creatinine 0.90 Est GFR ( Amer) > 60 Est GFR (Non-Af Amer) > 60 Glucose 179 H Calcium 8.3 L Total Bilirubin 0.7 Direct Bilirubin 0.5 H Neonat Total Bilirubin Not Reportable Neonat Direct Bilirubin Not Reportable Neonat Indirect Bili Not Reportable AST 39 H ALT 33 Alkaline Phosphatase 89 Troponin I < 0.012 Total Protein 6.5 Albumin 3.5 Lipase 10.4 L Urine Color YIMI Urine Appearance CLOUDY Urine pH 5.0 Ur Specific Cunningham 1.025 Urine Protein 100 H Urine Glucose (UA) NEGATIVE Urine Ketones 20 H Urine Blood SMALL H Urine Nitrite NEGATIVE Urine Bilirubin NEGATIVE Urine Urobilinogen 4.0 H Ur Leukocyte Esterase MODERATE H Urine WBC (Auto) 83 Urine RBC (Auto) 11 U Hyaline Cast (Auto) 4 Urine Bacteria (Auto) 3+ Squamous Epi Cells Auto 7 Urine Mucus (Auto) FEW Urine Ascorbic Acid NEGATIVE Chest X-Ray 08/13/18 01:23 IMPRESSION: No acute cardiopulmonary abnormality. 2010 [employer]- All Rights Reserved - Vital Signs Vital signs: Temp Pulse Resp BP Pulse Ox 100.1 F 97 15 96 08/12/18 23:39 08/12/18 23:39 08/12/18 23:39 08/12/18 23:39 - Laboratory Result Diagrams: 08/13/18 00:15 08/13/18 01:05 Laboratory results interpreted by me: 08/13/18 08/13/18 08/13/18 00:15 01:00 01:05 WBC 20.6 H RDW 14.3 H Plt Count 125 L Seg Neuts % (Manual) 79 H Lymphocytes % (Manual) 11 L Abs Neuts (Manual) 16.9 H Carbon Dioxide 21 L Glucose 179 H Calcium 8.3 L Direct Bilirubin 0.5 H AST 39 H Lipase 10.4 L Urine Protein 100 H Urine Ketones 20 H Urine Blood SMALL H Urine Urobilinogen 4.0 H Ur Leukocyte Esterase MODERATE H - EKG Interpretation by Me Additional EKG results interpreted by me: EKG demonstrates sinus rhythm with a ventricular rate of 95 bpm, slight left axis deviation, QTC 463 ms, there is a slight T wave inversion in lead V2, this is compared with prior EKG from 03/06/2018, without significant change. Discharge - Discharge Clinical Impression: UTI (urinary tract infection) Qualifiers: Urinary tract infection type: site unspecified Hematuria presence: with hematuria Qualified Code(s): N39.0 - Urinary tract infection, site not specified ; R31.9 - Hematuria, unspecified; R31.9 - Hematuria, unspecified Cephalgia Qualifiers: Headache type: unspecified Headache chronicity pattern: acute headache Intractability: not intractable Qualified Code(s): R51 - Headache Leukocytosis Qualifiers: Leukocytosis type: unspecified Qualified Code(s): D72.829 - Elevated white blood cell count, unspecified Condition: Stable Disposition: HOME, SELF-CARE Instructions: Headache ([facility]), Urinary Tract Infection ([facility]) Additional Instructions: Please return to the emergency department if you have any worsening, or concern of your symptoms. Please return to the emergency department if you develop chest pain, difficulty breathing, severe abdominal pain, or ongoing vomiting. Please follow-up with your primary care physician in 2-3 days and any other recommended physicians. If prescribed, take all medications as directed. If you have any questions or concerns do not hesitate to return the emergency department for evaluation. Please take the antibiotics as prescribed, if your symptoms are not improving or if you have return of your vomiting, please return to the emergency department. Prescriptions: Cefdinir [Omnicef 300 mg Capsule] 1 cap PO BID #14 capsule Referrals: LINDSAY SHORE MD [Primary Care Provider] - Follow up tomorrow
[2018-08-12] MEDS ORDERED: NORMAL SALINE 1000 ML 1,000 ML IV ONE (23:46)
[2018-08-12] MEDS ORDERED: METOCLOPRAMIDE HCL INJ/PF 10 MG/2 ML SDV IV ONE (23:46)
[2018-08-12] MEDS ORDERED: KETOROLAC TROMETHAMINE INJ/PF 30 MG/1 ML SDV IV ONE (23:47)
[2018-08-12] MEDS ORDERED: MAGNESIUM SULFATE/D5W 1 GM/100 ML RTUPB IV ONE (23:47)
[2018-08-13 00:54] LABS: HEMATOCRIT 40.9 % (36.0-47.0); HEMOGLOBIN 14.3 g/dL (12.0-15.5); MEAN CORPUSCULAR HGB CONC 34.9 g/dL (32.0-36.0); MEAN CORPUSCULAR VOLUME 83 fl (80-97); PLATELET COUNT 125 10^3/uL (150-450); RED BLOOD COUNT 4.92 10^6/uL (3.72-5.28); RED CELL DISTRIBUTION WIDTH 14.3 % (11.5-14.0); WHITE BLOOD COUNT 20.6 10^3/uL (4.0-10.5)
[2018-08-13 01:17] LABS: ABSOLUTE LYMPHOCYTES# (MANUAL) 2.3 10^3/uL (0.5-4.7); ABSOLUTE MONOCYTES # (MANUAL) 1.4 10^3/uL (0.1-1.4); ABSOLUTE NEUTROPHILS# (MANUAL) 16.9 10^3/uL (1.7-8.2); BAND NEUTROPHILS % (MANUAL) 3 % (3-5); BASOPHILS % (MANUAL) 0 % (0-2); EOSINOPHILS % (MANUAL) 0 % (0-6); LYMPHOCYTES % (MANUAL) 11 % (13-45); MONOCYTES % (MANUAL) 7 % (3-13); SEGMENTED NEUTROPHILS % (MAN) 79 % (42-78); TOTAL CELLS COUNTED 100
[2018-08-13 01:18] LABS: ANISOCYTOSIS SLIGHT; PLATELET COMMENT DECREASED
[2018-08-13 01:30] LABS: ALANINE AMINOTRANSFERASE 33 U/L (9-52); ALBUMIN 3.5 g/dL (3.5-5.0); ALKALINE PHOSPHATASE 89 U/L (38-126); ANION GAP 16 (5-19); ASPARTATE AMINO TRANSFERASE 39 U/L (14-36); BILIRUBIN,DIRECT 0.5 mg/dL (0.0-0.4); BILIRUBIN,TOTAL 0.7 mg/dL (0.2-1.3); BLOOD UREA NITROGEN 17 mg/dL (7-20); CALCIUM 8.3 mg/dL (8.4-10.2); CARBON DIOXIDE 21 mmol/L (22-30); CHLORIDE 100 mmol/L (98-107); GLUCOSE 179 mg/dL (75-110); LIPASE 10.4 U/L (23-300); SODIUM 137.1 mmol/L (137-145); TOTAL PROTEIN 6.5 g/dL (6.3-8.2)
[2018-08-13 01:42] LABS: APPEARANCE,URINE CLOUDY; BILIRUBIN,URINE NEGATIVE (NEGATIVE); COLOR,URINE AMBER; GLUCOSE, URINE NEGATIVE (NEGATIVE); KETONES,URINE 20 mg/dL (NEGATIVE); LEUKOCYTE ESTERASE,URINE MODERATE (NEGATIVE); NITRITE,URINE NEGATIVE (NEGATIVE); PROTEIN,URINE 100 mg/dL (NEGATIVE); URINE SPECIFIC GRAVITY 1.025
--- NOTE | 2018-08-13 01:50 | RADIOLOGY REPORT (SQ) ---
EXAM DESCRIPTION: XR CHEST 1 VIEW COMPLETED DATE/TME: 08/13/2018 01:23 CLINICAL HISTORY: 63 years, Female, fever COMPARISON: None. NUMBER OF VIEWS: one TECHNIQUE: AP view of the chest LIMITATIONS: None. FINDINGS: The lungs are clear. The heart is normal in size. There is no pneumothorax or pleural effusion. The bones are unremarkable IMPRESSION: No acute cardiopulmonary abnormality. 2011 [employer]- All Rights Reserved
[2018-08-13] MEDS ORDERED: CEFTRIAXONE INJ 1000 MG VIAL IV ONE (01:58)
[2018-08-13] MEDS ORDERED: ONDANSETRON HCL INJ/PF 4 MG/2 ML SDV IV ONE (02:20)
[2018-08-13] MEDS ORDERED: ONDANSETRON ODT 4 MG TAB (6 TAB/ER DISP) PO PRN (02:49)
[2018-08-13 03:55] VITALS: BP 113/40
--- NOTE | 2018-08-13 07:36 | EKG REPORT ---
SEVERITY:- BORDERLINE ECG - SINUS RHYTHM BORDERLINE T ABNORMALITIES, ANTERIOR LEADS : Confirmed by: Willie Juan MD 13-Aug-2018 07:35:49
== END 2018-08-13 03:50 | disposition home or self-care (01) ==
LOC: ER 23:33
DX: G43.909 Migraine, unspecified, not intractable, without status migrainosus (principal); N39.0 Urinary tract infection, site not specified; R31.9 Hematuria, unspecified; R11.2 Nausea with vomiting, unspecified; I10 Essential (primary) hypertension; I25.10 Atherosclerotic heart disease of native coronary artery without angina pectoris; J44.9 Chronic obstructive pulmonary disease, unspecified; E11.9 Type 2 diabetes mellitus without complications; Z88.5 Allergy status to narcotic agent; Z88.1 Allergy status to other antibiotic agents; Z88.8 Allergy status to other drugs, medicaments and biological substances; Z88.2 Allergy status to sulfonamides
CPT/HCPCS: 93005; 99284; 96361; 96375; 96365; 96367; 36415; 87086; 83690; 85025; 87088; 80053; 81001; 84484; 87186; 71045; 93010; J1885; J2765; J3475; J0696; J2405; J7030; A9270

== ENCOUNTER 2018-10-11 03:06 | Emergency (ER) | payer MEDICARE, MEDICAID ==
--- NOTE | 2018-10-11 03:39 | ER Document Report ---
Addendum entered and electronically signed by ARIANA NICHOLS LCSWA 10/11/18 09:53: Discharge - Discharge Clinical Impression: Suicidal ideation, Self-harming behavior UTI (urinary tract infection) Qualifiers: Urinary tract infection type: site unspecified Hematuria presence: without hematuria Qualified Code(s): N39.0 - Urinary tract infection, site not specified Condition: Stable Disposition: HOME, SELF-CARE Additional Instructions: You have been evaluated by both medical and behavioral health teams and been deemed appropriate for discharge. You are recommended to follow-up with outpatient mental health services for individual therapy; you have been provided a local resource list of area providers including mobile crisis contact information. DEPRESSION: Your evaluation reveals that you have mental depression. While symptoms may be vague, they often include disturbance of sleep, fatigue, loss of appetite, and general loss of interest in life. While depression may be a side effect of drugs, or a reaction to a major change in your life, many cases have no known cause. If depression is acute, and related to a major loss in your life, you can expect it to clear completely with time. If you have been depressed a long time, are prone to repeated bouts of depression or low mood, or have been thinki ng of suicide, get help. Depression can be treated with anti-depressant medication and counselling. Long-term depression will often take a few weeks to clear, even with appropriate medication. Follow-up care is important. SUICIDAL IDEATION: Suicidal ideation is a common medical term for thoughts about suicide, which may be as detailed as a formulated plan, without the suicidal act itself. Although most people who undergo suicidal ideation do not commit suicide, some go on to make suicide attempts. The range of suicidal ideation varies greatly from fleeting to detailed planning, role playing, and unsuccessful attempts. While thoughts about suicide are common, most people do not carry out serious actions to commit suicide. Based upon your evaluation and discussion with you, we do not believe you are currently at risk to act upon your thoughts of suicide. You have agreed to return to the Emergency Department, at any time, if you feel inclined to act upon your suicidal thoughts. FOLLOW-UP CARE: If you experience worsening or a significant change in your symptoms, notify the physician immediately or return to the Emergency Department at any time for re-evaluation. Referrals: LINDSAY SHORE MD [Primary Care Provider] - Follow up as needed [facility] [Outside] - Follow up as needed Addendum entered and electronically signed by KRISTOPHER GORMAN DO 10/11/18 06:00: Discharge - Discharge Clinical Impression: Suicidal ideation, Self-harming behavior UTI (urinary tract infection) Qualifiers: Urinary tract infection type: site unspecified Hematuria presence: without hematuria Qualified Code(s): N39.0 - Urinary tract infection, site not specified Condition: Stable Referrals: LINDSAY SHORE MD [Primary Care Provider] - Follow up as needed Addendum entered and electronically signed by KRISTOPHER GORMAN DO 10/11/18 06:00: Course - Re-evaluation Re-evalutation: 10/11/18 06:00 Urinalysis positive for infection which was treated with Rocephin - Vital Signs Vital signs: Temp Pulse Resp BP Pulse Ox 97.5 F 62 15 186/91 H 100 10/11/18 03:12 10/11/18 03:12 10/11/18 03:12 10/11/18 03:12 10/11/18 03:12 - Laboratory Result Diagrams: 10/11/18 03:30 10/11/18 03:30 Laboratory results interpreted by me: 10/11/18 10/11/18 10/11/18 03:30 03:30 05:25 RDW 14.4 H Carbon Dioxide 31 H BUN 30 H Glucose 136 H Calcium 10.6 H Urine Nitrite POSITIVE H Ur Leukocyte Esterase MODERATE H Salicylates < 1.0 L Acetaminophen < 10 L Original Note: ED Psych Disorder / Suicide - General Stated Complaint: SUICIDAL IDEATION Time Seen by Provider: 10/11/18 03:12 TRAVEL OUTSIDE OF THE [place] IN LAST 30 DAYS: No - HPI Notes: Patient is a 63-year-old female that presents to the emergency department for chief complaint of suicidal ideation. Patient reports that she caught her left hand with a knife and if her friend had not found her she would have cut herself more. When I asked if she wanted to hurt herself she said "no I was trying to kill myself". Patient states there is nothing we can do to help her. She states whenever she goes home after this process she will continue to feel suicidal. She states she has been suicidal for a very long time. She does states she had a half a wine cooler tonight. She denies any other drugs. Past Medical History: Von Willebrand's, MS, history of MRSA Past Surgical History: Reviewed in chart Social History: Occasional alcohol, denies tobacco and drug use. Family History: Reviewed and noncontributory for presenting illness Allergies: Reviewed, see documented allergy list. REVIEW OF SYSTEMS: CONSTITUTIONAL : No fever No chills No diaphoresis No recent illness EENT: No vision changes No congestion No sore throat CARDIOVASCULAR: No chest pain No palpitations RESPIRATORY: No shortness of breath No cough No difficulty breathing GASTROINTESTINAL: No abdominal pain No nausea No vomiting No diarrhea GENITOURINARY: No dysuria No hematuria No difficulty urinating MUSCULOSKELETAL: No back pain No leg pain No arm pain SKIN: No rashes No lesions LYMPHATIC: No swollen, enlarged glands. NEUROLOGICAL: No lightheadedness No headache No weakness No paresthesias PSYCHIATRIC: No anxiety depression Suicidal PHYSICAL EXAMINATION: Vital signs reviewed, nursing noted reviewed. GENERAL: Well-appearing, well-nourished and in no acute distress. HEAD: Atraumatic, normocephalic. EYES: Eyes appear normal, extraocular movements intact, sclera anicteric, conjunctiva are normal. ENT: nares patent, oropharynx clear without exudates. Moist mucous membranes. NECK: Normal range of motion, supple without lymphadenopathy LUNGS: Breath sounds clear to auscultation bilaterally and equal. No wheezes rales or rhonchi. HEART: Regular rate and rhythm without murmurs ABDOMEN: Soft, nontender, normoactive bowel sounds. No rebound, guarding, or rigidity. No masses appreciated. EXTREMITIES: Nontender, good range of motion, no pitting or edema. NEUROLOGICAL: No focal neurological deficits. Moves all extremities spontaneously Motor and sensory grossly intact on exam. PSYCH: Tearful, withdrawn, flat affect SKIN: Warm, Dry, normal turgor. Superficial 0.5 cm linear laceration to ulnar aspect of right palm with no active bleeding - Related Data Allergies/Adverse Reactions: fentanyl [From Duragesic] Allergy (Severe, Verified 03/04/18 09:03) Severe rash interferon beta-1b [From Betaseron] Allergy (Severe, Verified 03/04/18 09:03) Seizures morphine [Morphine] Allergy (Severe, Verified 03/04/18 09:03) Swelling, rash, difficulty breathing nalbuphine HCl [From Nubain] Allergy (Severe, Verified 03/04/18 09:03) Swelling, rash, Diff. breathing, Tachycardia quetiapine fumarate [From Seroquel] Allergy (Severe, Verified 03/04/18 09:03) crazy levofloxacin [From Levaquin] Allergy (Intermediate, Verified 03/04/18 09:03) Hives Sulfa (Sulfonamide Antibiotics) Allergy (Intermediate, Verified 03/04/18 09:03) N&V aspirin [Aspirin] Adverse Reaction (Verified 03/04/18 09:03) pt has von willebrands Past Medical History - Social History Smoking Status: Never Smoker Family History: Malignancy - Dad and brother both from cancer - Past Medical History Cardiac Medical History: Reports: Hx Coronary Artery Disease, Hx Heart Attack - 2007 mild , Hx Hypercholesterolemia, Hx Hypertension Pulmonary Medical History: Reports: Hx Asthma, Hx Bronchitis, Hx COPD, Hx Pneumonia - 2010 x 2 Denies: Hx Tuberculosis Neurological Medical History: Reports: Hx Seizures. Denies: Hx Cerebrovascular Accident Endocrine Medical History: Reports: Hx Diabetes Mellitus Type 2 Renal/ Medical History: Reports: Hx Kidney Stones. Denies: Hx Peritoneal Dialysis Musculoskeletal Medical History: Reports Hx Arthritis, Reports Hx Multiple S clerosis Skin Medical History: Reports Hx MRSA Psychiatric Medical History: Reports: Hx Bipolar Disorder Past Surgical History: Reports: Hx Cholecystectomy, Hx Hysterectomy, Hx Orthopedic Surgery - Bilateral hips; does not have rt hip, left hip repair. Denies: Hx Pacemaker - Immunizations Hx Diphtheria, Pertussis, Tetanus Vaccination: Yes Hx Pneumococcal Vaccination: 03/17/13 Physical Exam - Vital signs Vitals: Temp Pulse Resp BP Pulse Ox 97.5 F 62 15 186/91 H 100 10/11/18 03:12 10/11/18 03:12 10/11/18 03:12 10/11/18 03:12 10/11/18 03:12 Course - Re-evaluation Re-evalutation: 10/11/18 03:37 Vitals reviewed. Nursing notes reviewed. Patient's tetanus was updated within the last 5 years. Her laceration is very superficial and not bleeding, Band-Aid was placed over the laceration. Patient's EKG is unremarkable. 10/11/18 04:59 Patient's blood work consistent with some mild dehydration. She is able to tolerate liquids and will be rehydrated orally. Patient is medically clear for further psych evaluation in the morning when they arrive. IVC paperwork has been filled out for her current suicidal state. Laboratory 10/11/18 10/11/18 03:30 03:30 WBC 8.8 RBC 4.82 Hgb 13.9 Hct 41.2 MCV 85 MCH 28.8 MCHC 33.7 RDW 14.4 H Plt Count 266 Seg Neutrophils % 49.7 Lymphocytes % 37.6 Monocytes % 8.3 Eosinophils % 3.6 Basophils % 0.8 Absolute Neutrophils 4.4 Absolute Lymphocytes 3.3 Absolute Monocytes 0.7 Absolute Eosinophils 0.3 Absolute Basophils 0.1 Sodium 142.6 Potassium 4.6 Chloride 102 Carbon Dioxide 31 H Anion Gap 10 BUN 30 H Creatinine 0.71 Est GFR ( Amer) > 60 Est GFR (Non-Af Amer) > 60 Glucose 136 H Calcium 10.6 H Total Bilirubin 0.4 Direct Bilirubin 0.3 Neonat Total Bilirubin Not Reportable Neonat Direct Bilirubin Not Reportable Neonat Indirect Bili Not Reportable AST 16 ALT 15 Alkaline Phosphatase 89 Total Protein 8.1 Albumin 4.6 Salicylates < 1.0 L Acetaminophen < 10 L Serum Alcohol 20 - Vital Signs Vital signs: Temp Pulse Resp BP Pulse Ox 97.5 F 62 15 186/91 H 100 10/11/18 03:12 10/11/18 03:12 10/11/18 03:12 10/11/18 03:12 10/11/18 03:12 - Laboratory Result Diagrams: 10/11/18 03:30 10/11/18 03:30 Laboratory results interpreted by me: 10/11/18 10/11/18 03:30 03:30 RDW 14.4 H Carbon Dioxide 31 H BUN 30 H Glucose 136 H Calcium 10.6 H Salicylates < 1.0 L Acetaminophen < 10 L - EKG Interpretation by Me Additional EKG results interpreted by me: 10/11/18 03:38 Interpreted by myself [id number]: Normal sinus rhythm, rate 67, baseline artifact, no STEMI Discharge - Discharge Clinical Impression: Suicidal ideation, Self-harming behavior Condition: Stable Referrals: LINDSAY SHORE MD [Primary Care Provider] - Follow up as needed
[2018-10-11 03:51] LABS: ABSOLUTE BASOPHILS # (AUTO) 0.1 10^3/uL (0.0-0.2); ABSOLUTE EOSINOPHILS # (AUTO) 0.3 10^3/uL (0.0-0.6); ABSOLUTE LYMPHOCYTES (AUTO) 3.3 10^3/uL (0.5-4.7); ABSOLUTE MONOCYTES (AUTO) 0.7 10^3/uL (0.1-1.4); ABSOLUTE NEUT (AUTO) 4.4 10^3/uL (1.7-8.2); BASOPHILS % (AUTO) 0.8 % (0-2); EOSINOPHILS % (AUTO) 3.6 % (0-6); HEMATOCRIT 41.2 % (36.0-47.0); HEMOGLOBIN 13.9 g/dL (12.0-15.5); LYMPHOCYTES % (AUTO) 37.6 % (13-45); MEAN CORPUSCULAR HEMOGLOBIN 28.8 pg (27.0-33.4); MEAN CORPUSCULAR HGB CONC 33.7 g/dL (32.0-36.0); MEAN CORPUSCULAR VOLUME 85 fl (80-97); MONOCYTES % (AUTO) 8.3 % (3-13); PLATELET COUNT 266 10^3/uL (150-450); RED BLOOD COUNT 4.82 10^6/uL (3.72-5.28); RED CELL DISTRIBUTION WIDTH 14.4 % (11.5-14.0); SEGMENTED NEUTROPHILS % (AUTO) 49.7 % (42-78); TOTAL CELLS COUNTED % (AUTO) 100 %; WHITE BLOOD COUNT 8.8 10^3/uL (4.0-10.5)
[2018-10-11 04:17] LABS: ALANINE AMINOTRANSFERASE 15 U/L (9-52); ALBUMIN 4.6 g/dL (3.5-5.0); ALCOHOL 20 mg/dL (NONE DETECTED); ALKALINE PHOSPHATASE 89 U/L (38-126); ANION GAP 10 (5-19); ASPARTATE AMINO TRANSFERASE 16 U/L (14-36); BILIRUBIN,DIRECT 0.3 mg/dL (0.0-0.4); BILIRUBIN,TOTAL 0.4 mg/dL (0.2-1.3); BLOOD UREA NITROGEN 30 mg/dL (7-20); CALCIUM 10.6 mg/dL (8.4-10.2); CARBON DIOXIDE 31 mmol/L (22-30); CHLORIDE 102 mmol/L (98-107); GLUCOSE 136 mg/dL (75-110); POTASSIUM 4.6 mmol/L (3.6-5.0); SODIUM 142.6 mmol/L (137-145); TOTAL PROTEIN 8.1 g/dL (6.3-8.2)
[2018-10-11 04:30] LABS: ACETAMINOPHEN < 10 ug/mL (10-30); SALICYLATE < 1.0 mg/dL (2.0-20.0)
[2018-10-11 05:57] LABS: APPEARANCE,URINE SLIGHTLY-CLOUDY; BILIRUBIN,URINE NEGATIVE (NEGATIVE); COLOR,URINE YELLOW; GLUCOSE, URINE NEGATIVE (NEGATIVE); KETONES,URINE NEGATIVE (NEGATIVE); LEUKOCYTE ESTERASE,URINE MODERATE (NEGATIVE); NITRITE,URINE POSITIVE (NEGATIVE); PROTEIN,URINE NEGATIVE (NEGATIVE); URINE SPECIFIC GRAVITY 1.017; UROBILINOGEN,URINE NEGATIVE mg/dL (<2.0)
[2018-10-11] MEDS ORDERED: CEFTRIAXONE INJ 1000 MG VIAL IV ONE (05:58)
[2018-10-11 06:02] LABS: URINE AMPHETAMINES SCREEN NEGATIVE; URINE BARBITURATES SCREEN UNCONFIRMED POSITIVE; URINE BENZODIAZEPINES SCREEN NEGATIVE; URINE COCAINE SCREEN NEGATIVE; URINE MARIJUANA (THC) SCREEN NEGATIVE; URINE METHADONE SCREEN NEGATIVE; URINE PHENCYCLIDINE SCREEN NEGATIVE
[2018-10-11] MEDS ORDERED: CEFTRIAXONE INJ 1000 MG VIAL IM ONE (06:20)
[2018-10-11] MEDS ORDERED: LIDOCAINE 1% INJ-PF (10 MG/ML) 30 ML SDV INJ ONE (06:20)
[2018-10-11] MEDS ORDERED: BUTALB/ACETAMINOPHEN/CAFFEINE 1 TAB EACH PO ONE (07:23)
--- NOTE | 2018-10-11 09:13 | ER Document Report ---
Doctor's Note Notes: 10/11/18 09:13 Patient seen and evaluated by myself. She is a 63-year-old female who presents emergency department for complaints of suicidal ideation. Patient cut her left hand with a knife. Patient states that she is continuing to feel suicidal despite being on medication. Patient was medically cleared. An IVC was placed. Behavioral health was consulted. No issues overnight per nursing. Patient's vital signs are stable. She states that she still feeling suicidal and that there is nothing we can do to help her. Behavioral health saw the patient. They recommend discharge home. Patient has a has a vp digital marketing social media and crm that can assist her with obtaining a home health aid. Urinalysis shows infection. Patient leelai tevin avelino in the ED. I will discharge home on keflex. I instructed the patient to take the medication as directed, to follow up with her primary care physician this week, and to return for fever, chills, or worsening symptoms.
[2018-10-11 10:58] VITALS: BP 148/72
--- NOTE | 2018-10-11 12:45 | EKG REPORT ---
SEVERITY:- BORDERLINE ECG - SINUS RHYTHM CONSIDER ANTERIOR INFARCT : Confirmed by: Lisa Cartwright MD 11-Oct-2018 12:44:32
--- NOTE | 2018-10-16 09:03 | PSYCHOLOGICAL NOTE ---
Psych Note - Psych Note Date seen by psych provider: 10/11/18 Time seen by psych provider: 08:40 Psych Note: Reason for Consult: Suicidal ideation Patient is a 63-year-old female that presents to the emergency department for chief complaint of suicidal ideation. Patient discloses that she feels "a little bit" better. She reports that "everything" was getting to her and was feeling like she had to give up. She reports that she has not been sleeping as in constant pain and suffering from lapses of memory. She continued to report that she is supposed to have an aide however is not had one for the last 4 months because her previous aide had stolen the patient's medications. When confronted the aid never returned and the company has yet to send a new aide. She continued to state that she is diagnosed with MS in approximately 16 years ago had surgery to remove much of her hip and some of her upper thigh bone so has been wheelchair-bound since then. She discloses that she does have a healthcare social worker by the name of Fozia Reynaga that is working with her to get her additional services in place. She disclosed that she did have one previous attempt when she was 29 years old where she cut her wrist going up and down. Patient shows clinician cut on her hand; clinician observes cut to the side of the patient's palm. Patient admits that she knew this would not to truly harm her cutting there she just felt overwhelmed at the time. She is alert and orientated to person, place, time and circumstance. Mood is euthymic with congruent affect as evidenced by smiling and engaging with clinician. Patient denies current suicidal and homicidal ideation. Patient admits cut on side of the palm was not an attempt to kill herself. Delusions are absent behaviors congruent with an intact reality based presentation i.e. organized and linear thought process. Eye contact is well-maintained. Conversational speech is within normal rate, tone and prosody. Clinician notes patient is very verbose. Intellectual abilities appear to be within the average range. Attention and concentration were good. Insight, judgment, impulse control are fair. No medication recommendations at this time Diagnosis 296.80 (F31.9) Unspecified Bipolar Disorder, per history provided by patient Impression/plan: Patient is recommended for rescind of IVC and is cleared from acute psychiatric services. Patient is noted to be currently being treatment for a UTI, considering patient's age and disclosed chronic mental health diagnosis it is probable the patient has ad an increase in symptoms from her mental health diagnosis. Patient also disclosed a previous attempt when she was 29 years old where she cut down her wrist in an attempt at suicide. Patient presented to [facility] with a cut on the side of her palm and admits to clinician she knew that it would not have truly harmed her; she identifies frustration and needing medical/social assistance in her home. Patient had a home health aid but has been in between aids for the last 4 months; however she does have an assigned healthcare social worker helping her set up services (Fozia Reynaga). Patient denies current suicidal ideation. She is recommended to follow up with out patient services, she has been provided a local resource list of area providers and contact information for mobile crisis. Dr. Dean was consulted on the care and management of this patient; attending physician is in agreement with recommendations an disposition.
== END 2018-10-11 10:58 | disposition home or self-care (01) ==
LOC: ER 03:06
DX: S61.412A Laceration without foreign body of left hand, initial encounter (principal); X78.1XXA Intentional self-harm by knife, initial encounter; N39.0 Urinary tract infection, site not specified; F31.9 Bipolar disorder, unspecified; I25.10 Atherosclerotic heart disease of native coronary artery without angina pectoris; I25.2 Old myocardial infarction; I10 Essential (primary) hypertension; J44.9 Chronic obstructive pulmonary disease, unspecified; Z86.14 Personal history of Methicillin resistant Staphylococcus aureus infection; E11.9 Type 2 diabetes mellitus without complications; G35 Multiple sclerosis; D68.0 Von Willebrand disease; Z79.899 Other long term (current) drug therapy; Z79.891 Long term (current) use of opiate analgesic; Z79.84 Long term (current) use of oral hypoglycemic drugs
CPT/HCPCS: 93005; 99285; 96372; 36415; 80307 ×4; 85025; 80053; 81001; 93010; A9270; J3490; J0696

== ENCOUNTER 2018-12-04 15:17 | Emergency (ER) | payer MEDICARE, MEDICAID ==
[2018-12-04] MEDS ORDERED: ONDANSETRON HCL INJ/PF 4 MG/2 ML SDV IV ONE ×2 (16:06→18:56)
[2018-12-04] MEDS ORDERED: NORMAL SALINE 1000 ML 1,000 ML IV ONE (16:06)
--- NOTE | 2018-12-04 16:08 | ER Document Report ---
ED Medical Screen (RME) - General Chief Complaint: Headache Stated Complaint: HEADACHE Time Seen by Provider: 12/04/18 16:05 Primary Care Provider: LINDSAY SHORE MD [Primary Care Provider] - Follow up as needed Notes: Patient is complaining of a migraine headache since Friday. She has a history of the same and was previously treated by Dr. Avila, prior to his senior care. She has Fioricet and something for nausea that she takes. However, does not seem to be helping this time. She has been vomiting and vomiting and vomiting. Also having some diarrhea. Feels hot with sweats but has not noticed fever. No UTI symptoms. Patient says she went to to urgent cares and they have told her she needed to be seen in the emergency department to get fluids. Patient has a history of MS. TRAVEL OUTSIDE OF THE [place] IN LAST 30 DAYS: No - Related Data Allergies/Adverse Reactions: fentanyl [From Duragesic] Allergy (Severe, Verified 10/11/18 06:37) Severe rash interferon beta-1b [From Betaseron] Allergy (Severe, Verified 10/11/18 06:37) Seizures morphine [Morphine] Allergy (Severe, Verified 10/11/18 06:37) Swelling, rash, difficulty breathing nalbuphine HCl [From Nubain] Allergy (Severe, Verified 10/11/18 06:37) Swelling, rash, Diff. breathing, Tachycardia quetiapine fumarate [From Seroquel] Allergy (Severe, Verified 10/11/18 06:37) crazy levofloxacin [From Levaquin] Allergy (Intermediate, Verified 10/11/18 06:37) Hives Sulfa (Sulfonamide Antibiotics) Allergy (Intermediate, Verified 10/11/18 06:37) N&V aspirin [Aspirin] Adverse Reaction (Verified 10/11/18 06:37) pt has von willebrands Past Medical History - Past Medical History Cardiac Medical History: Reports: Hx Coronary Artery Disease, Hx Heart Attack - 2007 mild , Hx Hypercholesterolemia, Hx Hypertension Pulmonary Medical History: Reports: Hx Asthma, Hx Bronchitis, Hx COPD, Hx Pneumonia - 2010 x 2 Denies: Hx Tuberculosis Neurological Medical History: Reports: Hx Seizures. Denies: Hx Cerebrovascular Accident Endocrine Medical History: Reports: Hx Diabetes Mellitus Type 2 Renal/ Medical History: Reports: Hx Kidney Stones. Denies: Hx Peritoneal Dialysis Musculoskeltal Medical History: Reports Hx Arthritis, Reports Hx Multiple Sclerosis Skin Medical History: Reports Hx MRSA Psychiatric Medical History: Reports: Hx Bipolar Disorder Past Surgical History: Reports: Hx Cholecystectomy, Hx Hysterectomy, Hx Orthopedic Surgery - Bilateral hips; does not have rt hip, left hip repair. Denies: Hx Pacemaker - Immunizations Hx Diphtheria, Pertussis, Tetanus Vaccination: Yes Physical Exam - Vital signs Vitals: Temp Pulse Resp BP Pulse Ox 98.0 F 95 17 189/81 H 100 12/04/18 15:34 12/04/18 15:34 12/04/18 15:34 12/04/18 15:34 12/04/18 15:34 Course - Vital Signs Vital signs: Temp Pulse Resp BP Pulse Ox 98.0 F 95 17 189/81 H 100 12/04/18 15:34 12/04/18 15:34 12/04/18 15:34 12/04/18 15:34 12/04/18 15:34 Doctor's Discharge - Discharge Referrals: LINDSAY SHORE MD [Primary Care Provider] - Follow up as needed
[2018-12-04 17:00] LABS: ABSOLUTE BASOPHILS # (AUTO) 0.1 10^3/uL (0.0-0.2); ABSOLUTE EOSINOPHILS # (AUTO) 0.2 10^3/uL (0.0-0.6); ABSOLUTE LYMPHOCYTES (AUTO) 2.8 10^3/uL (0.5-4.7); ABSOLUTE NEUT (AUTO) 7.1 10^3/uL (1.7-8.2); EOSINOPHILS % (AUTO) 1.9 % (0-6); HEMATOCRIT 43.1 % (36.0-47.0); HEMOGLOBIN 14.7 g/dL (12.0-15.5); LYMPHOCYTES % (AUTO) 25.1 % (13-45); MEAN CORPUSCULAR HEMOGLOBIN 29.1 pg (27.0-33.4); MEAN CORPUSCULAR HGB CONC 34.2 g/dL (32.0-36.0); MEAN CORPUSCULAR VOLUME 85 fl (80-97); MONOCYTES % (AUTO) 8.8 % (3-13); PLATELET COUNT 252 10^3/uL (150-450); RED BLOOD COUNT 5.06 10^6/uL (3.72-5.28); RED CELL DISTRIBUTION WIDTH 14.4 % (11.5-14.0); SEGMENTED NEUTROPHILS % (AUTO) 63.2 % (42-78); TOTAL CELLS COUNTED % (AUTO) 100 %; WHITE BLOOD COUNT 11.3 10^3/uL (4.0-10.5)
[2018-12-04 17:02] LABS: APPEARANCE,URINE SLIGHTLY-CLOUDY; BILIRUBIN,URINE NEGATIVE (NEGATIVE); COLOR,URINE YELLOW; GLUCOSE, URINE NEGATIVE (NEGATIVE); KETONES,URINE NEGATIVE (NEGATIVE); LEUKOCYTE ESTERASE,URINE SMALL (NEGATIVE); NITRITE,URINE NEGATIVE (NEGATIVE); PROTEIN,URINE NEGATIVE (NEGATIVE); URINE SPECIFIC GRAVITY 1.015; UROBILINOGEN,URINE NEGATIVE mg/dL (<2.0)
[2018-12-04 17:20] LABS: ALANINE AMINOTRANSFERASE 18 U/L (9-52); ALBUMIN 5.2 g/dL (3.5-5.0); ALKALINE PHOSPHATASE 111 U/L (38-126); ANION GAP 14 (5-19); ASPARTATE AMINO TRANSFERASE 31 U/L (14-36); BILIRUBIN,DIRECT 0.5 mg/dL (0.0-0.4); BILIRUBIN,TOTAL 0.7 mg/dL (0.2-1.3); BLOOD UREA NITROGEN 31 mg/dL (7-20); CALCIUM 10.6 mg/dL (8.4-10.2); CARBON DIOXIDE 24 mmol/L (22-30); CHLORIDE 105 mmol/L (98-107); GLUCOSE 138 mg/dL (75-110); LIPASE 39.1 U/L (23-300); POTASSIUM 4.5 mmol/L (3.6-5.0); SODIUM 143.1 mmol/L (137-145); TOTAL PROTEIN 8.9 g/dL (6.3-8.2)
[2018-12-04] MEDS ORDERED: KETOROLAC TROMETHAMINE INJ/PF 30 MG/1 ML SDV IV ONE (19:59)
[2018-12-04] MEDS ORDERED: METOCLOPRAMIDE HCL INJ/PF 10 MG/2 ML SDV IV ONE (19:59)
--- NOTE | 2018-12-04 20:50 | ER Document Report ---
ED General - General Chief Complaint: Headache Stated Complaint: HEADACHE Time Seen by Provider: 12/04/18 16:05 Primary Care Provider: LINDSAY SHORE MD [Primary Care Provider] - Follow up as needed Notes: Patient is a 63-year-old female past medical history of multiple sclerosis, essential hypertension, chronic headaches, presents with a global, throbbing, constant headache that is been ongoing for the past 4 days. Patient states that the headache started gradually, has gotten progressively worse since onset. Has tried Fioricet with minimal to no improvement. Lights, sounds activity worsens the headache. Has headaches similar to this in the past on multiple occasions. Has not seen her primary care physician regarding today's concerns. Denies any focal weakness, numbness or confusion. No fever or constitutional symptoms. TRAVEL OUTSIDE OF THE [place] IN LAST 30 DAYS: No - Related Data Allergies/Adverse Reactions: fentanyl [From Duragesic] Allergy (Severe, Verified 10/11/18 06:37) Severe rash interferon beta-1b [From Betaseron] Allergy (Severe, Verified 10/11/18 06:37) Seizures morphine [Morphine] Allergy (Severe, Verified 10/11/18 06:37) Swelling, rash, difficulty breathing nalbuphine HCl [From Nubain] Allergy (Severe, Verified 10/11/18 06:37) Swelling, rash, Diff. breathing, Tachycardia quetiapine fumarate [From Seroquel] Allergy (Severe, Verified 10/11/18 06:37) crazy levofloxacin [From Levaquin] Allergy (Intermediate, Verified 10/11/18 06:37) Hives Sulfa (Sulfonamide Antibiotics) Allergy (Intermediate, Verified 10/11/18 06:37) N&V aspirin [Aspirin] Adverse Reaction (Verified 10/11/18 06:37) pt has von willebrands Past Medical History - General Information source: Patient - Social History Smoking Status: Never Smoker Frequency of alcohol use: None Drug Abuse: None Lives with: Spouse/Significant other Family History: Malignancy - Dad and brother both from cancer Patient has suicidal ideation: No Patient has homicidal ideation: No - Past Medical History Cardiac Medical History: Reports: Hx Coronary Artery Disease, Hx Heart Attack - 2007 mild , Hx Hypercholesterolemia, Hx Hypertension Pulmonary Medical History: Reports: Hx Asthma, Hx Bronchitis, Hx COPD, Hx Pneumonia - 2010 x 2 Denies: Hx Tuberculosis Neurological Medical History: Reports: Hx Seizures. Denies: Hx Cerebrovascular Accident Endocrine Medical History: Reports: Hx Diabetes Mellitus Type 2 Renal/ Medical History: Reports: Hx Kidney Stones. Denies: Hx Peritoneal Dialysis Musculoskeletal Medical History: Reports Hx Arthritis, Reports Hx Multiple Sclerosis Skin Medical History: Reports Hx MRSA Psychiatric Medical History: Reports: Hx Bipolar Disorder Past Surgical History: Reports: Hx Cholecystectomy, Hx Hysterectomy, Hx Or thopedic Surgery - Bilateral hips; does not have rt hip, left hip repair. Denies: Hx Pacemaker - Immunizations Hx Diphtheria, Pertussis, Tetanus Vaccination: Yes Hx Pneumococcal Vaccination: 03/17/13 Review of Systems - Review of Systems Notes: Constitutional: Negative for fever. HENT: Negative for sore throat. Eyes: Negative for visual changes. Cardiovascular: Negative for chest pain. Respiratory: Negative for shortness of breath. Gastrointestinal: Negative for abdominal pain, positive for vomiting and diarrhea Genitourinary: Negative for dysuria. Musculoskeletal: Negative for back pain. Skin: Negative for rash. Neurological: Positive for headache 10 point ROS negative except as marked above and in HPI. Physical Exam - Vital signs Vitals: Temp Pulse Resp BP Pulse Ox 98.0 F 95 17 189/81 H 100 12/04/18 15:34 12/04/18 15:34 12/04/18 15:34 12/04/18 15:34 12/04/18 15:34 Interpretation: Hypertensive Notes: PHYSICAL EXAMINATION: GENERAL: Well-appearing, well-nourished and in no acute distress. HEAD: Atraumatic, normocephalic. EYES: Pupils equal round and reactive to light, extraocular movements intact, sclera anicteric, conjunctiva are normal. ENT: nares patent, oropharynx clear without exudates. Moist mucous membranes. NECK: Normal range of motion, supple without lymphadenopathy LUNGS: Breath sounds clear to auscultation bilaterally and equal. No wheezes rales or rhonchi. HEART: Regular rate and rhythm without murmurs ABDOMEN: Soft, nontender, normoactive bowel sounds. No guarding, no rebound. No masses appreciated. EXTREMITIES: Normal range of motion, no pitting or edema. No cyanosis. NEUROLOGICAL: No focal neurological deficits. Moves all extremities spontaneously and on command. PSYCH: Normal mood, normal affect. Loquacious SKIN: Warm, Dry, normal turgor, no rashes or lesions noted. Course - Re-evaluation Re-evalutation: 12/04/18 20:49 Presentation of a headache that appears to be most consistent with tension versus migrainous type headache. Headache was not maximal in onset, patient has no focal neurologic deficits, no nuchal rigidity, vital signs within normal limits, no papilledema, and patient is overall well in appearance. Based on clinical history and examination I do not suspect an acute subarachnoid hemorrhage, dural venous sinus thrombosis, acute meningitis, or intercranial mass. Given my low clinical suspicion for any acute life-threatening etiology, I do not feel advanced neuro imaging is indicated. Patient did have improvement after receiving medical provide. Has a long-standing history of similar headaches. At this time will discharge with return precautions and follow-up recommendations. Verbal discharge instructions given a the bedside and opportunity for questions given. Medication warnings reviewed. Patient is in agreement with this plan and has verbalized understanding of return precautions and the need for primary care follow-up in the next 24-72 hours. - Vital Signs Vital signs: Temp Pulse Resp BP Pulse Ox 97.6 F 90 18 148/66 H 97 12/04/18 21:30 12/04/18 21:30 12/04/18 21:30 12/04/18 21:30 12/04/18 21:30 - Laboratory Result Diagrams: 12/04/18 16:15 12/04/18 16:15 Laboratory results interpreted by me: 12/04/18 12/04/18 12/04/18 16:15 16:15 16:15 WBC 11.3 H RDW 14.4 H BUN 31 H Est GFR (Non-Af Amer) 58 L Glucose 138 H Calcium 10.6 H Direct Bilirubin 0.5 H Total Protein 8.9 H Albumin 5.2 H Ur Leukocyte Esterase SMALL H Discharge - Discharge Clinical Impression: Essential hypertension Headache Qualifiers: Headache type: unspecified Headache chronicity pattern: acute headache Intractability: not intractable Qualified Code(s): R51 - Headache Nausea and vomiting Qualifiers: Vomiting type: unspecified Vomiting Intractability: non-intractable Qualified Code(s): R11.2 - Nausea with vomiting, unspecified Condition: Good Disposition: HOME, SELF-CARE Additional Instructions: You have been seen in the Emergency Department (ED) for a headache. Please use fiorcet as prescribed. As we have discussed, please follow up with your primary care doctor as soon as possible regarding today's ED visit and your headache symptoms. Call your doctor or return to the ED if you have a worsening headache, sudden and severe headache, confusion, slurred speech, facial droop, weakness or nu mbness in any arm or leg, extreme fatigue, or other symptoms that concern you. Referrals: LINDSAY SHORE MD [Primary Care Provider] - Follow up as needed
[2018-12-04 21:37] VITALS: BP 148/66
== END 2018-12-04 21:39 | disposition home or self-care (01) ==
LOC: ER 15:17
DX: I10 Essential (primary) hypertension (principal); R51 Headache; R11.2 Nausea with vomiting, unspecified; G35 Multiple sclerosis; Z79.899 Other long term (current) drug therapy; I25.10 Atherosclerotic heart disease of native coronary artery without angina pectoris; E11.9 Type 2 diabetes mellitus without complications; J44.9 Chronic obstructive pulmonary disease, unspecified
CPT/HCPCS: 96376; 99284; 96361; 96374; 96375; 36415; 83690; 85025; 80053; 81001; J1885; J2765; J2405; J7030

== ENCOUNTER 2019-01-13 14:10 | Inpatient (IN) | payer MEDICARE, MEDICAID ==
--- NOTE | 2019-01-13 15:24 | ER Document Report ---
ED Medical Screen (RME) - General Chief Complaint: Nausea/Vomiting Stated Complaint: NAUSEA, VOMITING Time Seen by Provider: 01/13/19 15:09 Primary Care Provider: LINDSAY SHORE MD [Primary Care Provider] - Follow up as needed Mode of Arrival: Medic Information source: Patient Notes: Patient presents to the emergency department via EMS for nausea vomiting abdomin al pain. Patient reports symptoms started at 4:00 this morning. Patient is a diabetic. Patient received Zofran via EMS no further vomiting at this time. I have greeted and performed a rapid initial assessment of this patient. A comprehensive ED assessment and evaluation of the patient, analysis of test results and completion of the medical decision making process will be conducted by additional ED providers. Dictation of this chart was performed using voice recognition software; therefore, there may be some unintended grammatical errors. TRAVEL OUTSIDE OF THE [place] IN LAST 30 DAYS: No - Related Data Allergies/Adverse Reactions: fentanyl [From Duragesic] Allergy (Severe, Verified 01/13/19 15:10) Severe rash interferon beta-1b [From Betaseron] Allergy (Severe, Verified 01/13/19 15:10) Seizures morphine [Morphine] Allergy (Severe, Verified 01/13/19 15:10) Swelling, rash, difficulty breathing nalbuphine HCl [From Nubain] Allergy (Severe, Verified 01/13/19 15:10) Swelling, rash, Diff. breathing, Tachycardia quetiapine fumarate [From Seroquel] Allergy (Severe, Verified 01/13/19 15:10) crazy levofloxacin [From Levaquin] Allergy (Intermediate, Verified 01/13/19 15:10) Hives Sulfa (Sulfonamide Antibiotics) Allergy (Intermediate, Verified 01/13/19 15:10) N&V aspirin [Aspirin] Adverse Reaction (Verified 01/13/19 15:10) pt has von willebrands Past Medical History - Social History Chew tobacco use (# tins/day): No Frequency of alcohol use: None Drug Abuse: None - Past Medical History Cardiac Medical History: Reports: Hx Coronary Artery Disease, Hx Heart Attack - 2007 mild , Hx Hypercholesterolemia, Hx Hypertension Pulmonary Medical History: Reports: Hx Asthma, Hx Bronchitis, Hx COPD, Hx Pneumonia - 2010 x 2 Denies: Hx Tuberculosis Neurological Medical History: Reports: Hx Seizures. Denies: Hx Cerebrovascular Accident Endocrine Medical History: Reports: Hx Diabetes Mellitus Type 2 Renal/ Medical History: Reports: Hx Kidney Stones. Denies: Hx Peritoneal Dialysis Musculoskeltal Medical History: Reports Hx Arthritis, Reports Hx Multiple Sclerosis Skin Medical History: Reports Hx MRSA Psychiatric Medical History: Reports: Hx Bipolar Disorder Past Surgical History: Reports: Hx Cholecystectomy, Hx Hysterectomy, Hx Orthopedic Surgery - Bilateral hips; does not have rt hip, left hip repair. Denies: Hx Pacemaker - Immunizations Hx Diphtheria, Pertussis, Tetanus Vaccination: Yes Physical Exam - Vital signs Vitals: Temp Pulse Resp BP Pulse Ox 97.2 F 84 18 149/84 H 100 01/13/19 14:24 01/13/19 14:24 01/13/19 14:24 01/13/19 14:24 01/13/19 14:24 Course - Vital Signs Vital signs: Temp Pulse Resp BP Pulse Ox 97.2 F 84 18 149/84 H 100 01/13/19 14:24 01/13/19 14:24 01/13/19 14:24 01/13/19 14:24 01/13/19 14:24 Doctor's Discharge - Discharge Referrals: LINDSAY SHORE MD [Primary Care Provider] - Follow up as needed
[2019-01-13 16:43] LABS: HEMATOCRIT 49.2 % (36.0-47.0); HEMOGLOBIN 16.3 g/dL (12.0-15.5); MEAN CORPUSCULAR HEMOGLOBIN 28.3 pg (27.0-33.4); MEAN CORPUSCULAR HGB CONC 33.1 g/dL (32.0-36.0); MEAN CORPUSCULAR VOLUME 86 fl (80-97); PLATELET COUNT 318 10^3/uL (150-450); RED BLOOD COUNT 5.76 10^6/uL (3.72-5.28); RED CELL DISTRIBUTION WIDTH 14.3 % (11.5-14.0); WHITE BLOOD COUNT 22.5 10^3/uL (4.0-10.5)
[2019-01-13 16:47] LABS: APPEARANCE,URINE SLIGHTLY-CLOUDY; BILIRUBIN,URINE NEGATIVE (NEGATIVE); GLUCOSE, URINE NEGATIVE (NEGATIVE); KETONES,URINE TRACE mg/dL (NEGATIVE); LEUKOCYTE ESTERASE,URINE SMALL (NEGATIVE); NITRITE,URINE POSITIVE (NEGATIVE); PROTEIN,URINE >=500 mg/dL (NEGATIVE); URINE SPECIFIC GRAVITY 1.023
[2019-01-13 16:48] LABS: COLOR,URINE DARK YELLOW
[2019-01-13 16:51] LABS: ALANINE AMINOTRANSFERASE 28 U/L (9-52); ALBUMIN 4.9 g/dL (3.5-5.0); ALKALINE PHOSPHATASE 120 U/L (38-126); AMYLASE 66 U/L (30-110); ANION GAP 16 (5-19); ASPARTATE AMINO TRANSFERASE 18 U/L (14-36); BILIRUBIN,DIRECT 0.4 mg/dL (0.0-0.4); BILIRUBIN,TOTAL 0.6 mg/dL (0.2-1.3); BLOOD UREA NITROGEN 22 mg/dL (7-20); CARBON DIOXIDE 27 mmol/L (22-30); CHLORIDE 99 mmol/L (98-107); GLUCOSE 177 mg/dL (75-110); SODIUM 141.8 mmol/L (137-145); TOTAL PROTEIN 9.2 g/dL (6.3-8.2)
[2019-01-13 17:18] LABS: ABSOLUTE LYMPHOCYTES# (MANUAL) 1.8 10^3/uL (0.5-4.7); ABSOLUTE MONOCYTES # (MANUAL) 0.9 10^3/uL (0.1-1.4); ABSOLUTE NEUTROPHILS# (MANUAL) 19.8 10^3/uL (1.7-8.2); BASOPHILS % (MANUAL) 0 % (0-2); EOSINOPHILS % (MANUAL) 0 % (0-6); LYMPHOCYTES % (MANUAL) 8 % (13-45); MONOCYTES % (MANUAL) 4 % (3-13); SEGMENTED NEUTROPHILS % (MAN) 88 % (42-78); TOTAL CELLS COUNTED 100
[2019-01-13 17:19] LABS: ANISOCYTOSIS SLIGHT; PLATELET CLUMPS PRESENT; PLATELET COMMENT ADEQUATE; TOXIC GRANULATION 1+
[2019-01-13] MEDS ORDERED: RINGERS SOLUTION,LACTATED 1,000 ML IV ONE (17:28)
[2019-01-13] MEDS ORDERED: ONDANSETRON HCL INJ/PF 4 MG/2 ML SDV IV ONE (17:28)
[2019-01-13] MEDS ORDERED: NORMAL SALINE 1000 ML 1,000 ML IV ONE (18:02)
[2019-01-13] MEDS ORDERED: HYDROMORPHONE HCL INJ/PF 2 MG/ML AMPULE IV ONE ×2 (18:02→20:11)
[2019-01-13] MEDS ORDERED: CEFTRIAXONE 2 GM/D5W RTU 2 GM/50 ML RTUPB IV ONE (18:11)
--- NOTE | 2019-01-13 19:05 | RADIOLOGY REPORT (SQ) ---
EXAM DESCRIPTION: CT ABD/PELVIS NO ORAL OR IV COMPLETED DATE/TIME: 01/13/2019 6:46 pm REASON FOR STUDY: ? Pyelo COMPARISON: 05/05/2017 TECHNIQUE: CT scan of the abdomen and pelvis performed without intravenous or oral contrast. Images reviewed with lung, soft tissue, and bone windows. Reconstructed coronal and sagittal MPR images revi ewed. All images stored on PACS. All CT scanners at this facility use dose modulation, iterative reconstruction, and/or weight based d osing when appropriate to reduce radiation dose to as low as reasonably achievable (ALARA). [facility]: Dose Right [facility]: CareDose [facility]: Dose Right [facility]: Teradose 4D [facility]: Smart [place] RADIATION DOSE: CT Rad equipment meets quality standard of care and radiation dose reduction techniq ues were employed. CTDIvol: 9.4 mGy. DLP: 512 mGy-cm.mGy. LIMITATIONS: None. FINDINGS: LOWER CHEST: No significant findings. No nodules or infiltrates. NON-CONTRASTED LIVER, SPLEEN, ADRENALS: There is a small amount of fluid around the liver. The liver and spleen are unremarkable. There is no adrenal mass. PANCREAS: Considerable fatty infiltration. No mass. No ductal dilatation. GALLBLADDER: Surgically absent. RIGHT KIDNEY AND URETER: No suspicious masses. Assessment limited by lack of IV contrast. No signif icant calcifications. No hydronephrosis or hydroureter. LEFT KIDNEY AND URETER: Hypoplastic. No significant calcifications. No hydronephrosis or hydroure ter. AORTA AND RETROPERITONEUM: No aneurysm. No retroperitoneal masses or adenopathy. BOWEL AND PERITONEAL CAVITY: No obvious masses or inflammatory changes. No free fluid. APPENDIX: Not identified. PELVIS, BLADDER, AND ABDOMINAL WALL:Bladder is not filled and therefore not well evaluated. There ap pears to be a minimal amount of free fluid in the pelvis. BONES: Internal fixation of left hip. Dysplastic right hip with apparent resection of the femoral he ad and neck. OTHER: No other significant finding. IMPRESSION: Normal right kidney. Markedly hypoplastic left kidney. Fatty infiltration of the pancr eas. Small amount of fluid around the liver and small amount of free fluid in the pelvis. Osseous f indings as described. COMMENT: Quality ID # [id number]: Final reports with documentation of one or more dose reduction techniques (e.g., Automated exposure control, adjustment of the mA and/or kV according to patient size, use of iterative reconstruction technique) TECHNICAL DOCUMENTATION: JOB ID: [id number] [employer]- All Rights Reserved Reading location - IP/workstation name: [email or web address]
[2019-01-13] MEDS ORDERED: METOCLOPRAMIDE HCL INJ/PF 10 MG/2 ML SDV IV ONE (20:11)
[2019-01-13] MEDS ORDERED: MAG HYDROX/AL HYDROX/SIMETH SUSP 30 ML UDCUP PO PRN (21:40)
[2019-01-13] MEDS ORDERED: GLUCAGON,HUMAN RECOMB 1 MG INJ IM PRN (21:40)
[2019-01-13] MEDS ORDERED: DEXTROSE 40% GEL 15 GM TUBE PO PRN ×2 (21:40)
[2019-01-13] MEDS ORDERED: DEXTROSE 50%-WATER 25 GM/50 ML DISP.SYRIN IV PRN ×2 (21:40)
[2019-01-13] MEDS ORDERED: NORMAL SALINE 1000 ML 1,000 ML IV SCH (21:45)
--- NOTE | 2019-01-13 21:46 | ER Document Report ---
ED General - General Mode of Arrival: Ambulatory Information source: Patient TRAVEL OUTSIDE OF THE [place] IN LAST 30 DAYS: No - HPI Onset: Yesterday Onset/Duration: Sudden, Persistent, Worse Quality of pain: Burning, Pressure, Throbbing Pain Level: 3 Associated symptoms: Body/muscle aches, Chills, Nausea, Vomiting, Weakness Relieved by: Denies Similar symptoms previously: No Recently seen / treated by doctor: No <SABAS ENCARNACION - Last Filed: 01/13/19 21:48> <PRECIOUS BLISS - Last Filed: 01/14/19 13:21> - General Chief Complaint: Nausea/Vomiting Stated Complaint: NAUSEA, VOMITING Time Seen by Provider: 01/13/19 15:09 Notes: Patient is a 63-year-old female comes into emergency room complaint of abdominal pain nausea and vomiting. She states that yesterday she has a history of migraines and had a major migraine yesterday. She took her medication for her migraines and lay down and the headache went away. About 2 AM in the morning she was waking up out of sleep with a note of mild headache but no vomiting and she did not understand why her headache was not bad but she was vomiting. She also states that she had some urinary frequency and discomfort with urination. Patient states her abdominal pain is not specific it just hurts all over and the vomiting comes. (SABAS ENCARNACION) - Related Data Allergies/Adverse Reactions: fentanyl [From Duragesic] Allergy (Severe, Verified 01/13/19 15:10) Severe rash interferon beta-1b [From Betaseron] Allergy (Severe, Verified 01/13/19 15:10) Seizures morphine [Morphine] Allergy (Severe, Verified 01/13/19 15:10) Swelling, rash, difficulty breathing nalbuphine HCl [From Nubain] Allergy (Severe, Verified 01/13/19 15:10) Swelling, rash, Diff. breathing, Tachycardia quetiapine fumarate [From Seroquel] Allergy (Severe, Verified 01/13/19 15:10) crazy levofloxacin [From Levaquin] Allergy (Intermediate, Verified 01/13/19 15:10) Hives Sulfa (Sulfonamide Antibiotics) Allergy (Intermediate, Verified 01/13/19 15:10) N&V aspirin [Aspirin] Adverse Reaction (Verified 01/13/19 15:10) pt has von willebrands Past Medical History - General Information source: Patient - Social History Smoking Status: Never Smoker Chew tobacco use (# tins/day): No Smoking Education Provided: Yes - Is a new Frequency of alcohol use: None Drug Abuse: None Lives with: Alone Family History: None, Reviewed & Not Pertinent, Malignancy - Dad and brother both from cancer Patient has suicidal ideation: No Patient has homicidal ideation: No - Past Medical History Cardiac Medical History: Reports: Hx Coronary Artery Disease, Hx Heart Attack - 2007 mild , Hx Hypercholesterolemia, Hx Hypertension Pulmonary Medical History: Reports: Hx Asthma, Hx Bronchitis, Hx COPD, Hx Pneumonia - 2010 x 2 Denies: Hx Tuberculosis Neurological Medical History: Reports: Hx Seizures. Denies: Hx Cerebrovascular Accident Endocrine Medical History: Reports: Hx Diabetes Mellitus Type 2 Renal/ Medical History: Reports: Hx Kidney Stones. Denies: Hx Peritoneal Dialysis Musculoskeletal Medical History: Reports Hx Arthritis, Reports Hx Multiple Sclerosis Skin Medical History: Reports Hx MRSA Psychiatric Medical History: Reports: Hx Bipolar Disorder Past Surgical History: Reports: Hx Cholecystectomy, Hx Hysterectomy, Hx Orthopedic Surgery - Bilateral hips; does not have rt hip, left hip repair. Denies: Hx Pacemaker - Immunizations Hx Diphtheria, Pertussis, Tetanus Vaccination: Yes Hx Pneumococcal Vaccination: 03/17/13 <SABAS ENCARNACION - Last Filed: 01/13/19 21:48> Review of Systems - Review of Systems Constitutional: No symptoms reported EENT: No symptoms reported Cardiovascular: No symptoms reported Respiratory: No symptoms reported Gastrointestinal: See HPI, Abdominal pain, Nausea, Vomiting Genitourinary: See HPI Female Genitourinary: No symptoms reported Musculoskeletal: No symptoms reported Skin: No symptoms reported Hematologic/Lymphatic: No symptoms reported Neurological/Psychological: No symptoms reported -: Yes All other systems reviewed and negative <SABAS ENCARNACION - Last Filed: 01/13/19 21:48> Physical Exam - Vital signs Interpretation: Hypertensive <SABAS ENCARNACION - Last Filed: 01/13/19 21:48> - Vital signs Vitals: Temp Pulse Resp BP Pulse Ox 97.2 F 84 18 149/84 H 100 01/13/19 14:24 01/13/19 14:24 01/13/19 14:24 01/13/19 14:24 01/13/19 14:24 - Notes Notes: PHYSICAL EXAMINATION: GENERAL: Well-appearing, well-nourished and in no acute distress. Uncomfortable appearing. Actively vomiting on physical exam HEAD: Atraumatic, normocephalic. EYES: Pupils equal round and reactive to light, extraocular movements intact, conjunctiva are normal. ENT: Nares patent, oropharynx clear without exudates. Moist mucous membranes. NECK: Normal range of motion, supple without lymphadenopathy LUNGS: Auscultation patient's lung knutson show she has bilateral breath sounds breath sounds decreased throughout with light expiratory wheeze otherwise clear. HEART: Regular rate and rhythm without murmurs ABDOMEN: examination patient's abdomen her area of main complaint shows mild distention with diffuse tenderness in all quads bowel sounds are present all 4 quads. She displays moderate amount of tenderness suprapubically to palpation. Female : deferred Musculoskeletal: Normal range of motion, no pitting or edema. No cyanosis. NEUROLOGICAl Normal speech, normal gait. Normal sensory, motor exams PSYCH: Normal mood, normal affect. SKIN: Warm, Dry, normal turgor, no rashes or lesions noted. (SABAS ENCARNACION) Course - Laboratory Result Diagrams: 01/13/19 16:20 01/13/19 16:20 <SABAS ENCARNACION - Last Filed: 01/13/19 21:48> - Laboratory Result Diagrams: 01/14/19 06:18 01/14/19 06:18 <PRECIOUS BLISS - Last Filed: 01/14/19 13:21> - Re-evaluation Re-evalutation: 01/13/19 21:55 I discussed case with Dr. Bliss after patient's CT came back showing nothing major known pyelo-no other acute findings. I informed her that patient had a 22,500 white count but was afebrile and vital signs have been stable and patient is talking well. She has not vomited again since the first time I saw her in the triage area until discussing with Dr. Bliss. On return to the room to inform patient she can go home she was actively vomiting again therefore I felt it was necessary to have patient admitted. Patient's primary physician is one that is not in the local area and so I contacted the hospitalist. He has accepted admission and patient will be admitted to an for a urinary tract infection. (SABAS ENCARNACION) 01/14/19 13:20 63-year-old female presents with nausea, vomiting, flank pain. Found to have a urinary tract infection and likely pyelonephritis. Patient has uncontrolled vomiting, appears ill and will be admitted to the hospitalist. PHYSICAL EXAMINATION: GENERAL: Ill-appearing, actively vomiting. HEAD: Atraumatic, normocephalic. EYES: Pupils equal round extraocular movements intact, conjunctiva are normal. ENT: Nares patent NECK: Normal range of motion LUNGS: No respiratory distress Musculoskeletal: Normal range of motion NEUROLOGICAL: Normal speech, normal gait. PSYCH: Normal mood, normal affect. SKIN: Pale (PRECIOUS BLISS) - Vital Signs Vital signs: Temp Pulse Resp BP Pulse Ox 98 F 87 14 130/81 H 97 01/14/19 12:00 01/14/19 12:00 01/14/19 12:00 01/14/19 12:00 01/14/19 12:00 - Laboratory Laboratory results interpreted by me: 01/13/19 01/13/19 01/13/19 15:48 16:20 16:20 WBC 22.5 H RBC 5.76 H Hgb 16.3 H Hct 49.2 H RDW 14.3 H Seg Neuts % (Manual) 88 H Lymphocytes % (Manual) 8 L Abs Neuts (Manual) 19.8 H BUN 22 H Est GFR (Non-Af Amer) 55 L Glucose 177 H Calcium 11.0 H Total Protein 9.2 H Urine Protein >=500 H Urine Ketones TRACE H Urine Nitrite POSITIVE H Urine Urobilinogen 2.0 H Ur Leukocyte Esterase SMALL H Discharge - Discharge Admitting Provider: Michelet (Hospitalist) Unit Admitted: Medical Floor <SABAS ENCARNACION T - Last Filed: 01/13/19 21:48> <PRECIOUS BLISS - Last Filed: 01/14/19 13:21> - Discharge Clinical Impression: Urinary tract infection Qualifiers: Urinary tract infection type: acute cystitis Hematuria presence: with hematuria Qualified Code(s): N30.01 - Acute cystitis with hematuria Disposition: ADMITTED INPATIENT
[2019-01-13] MEDS ORDERED: CARVEDILOL 12.5 MG TABLET PO SCH (22:00)
[2019-01-14] MEDS: PROMETHAZINE HCL 25 MG TABLET PO PRN ×3 (00:03→13:30)
[2019-01-14] MEDS: NORMAL SALINE 1000 ML 1,000 ML IV PRN ×3 (00:26→13:26)
[2019-01-14] MEDS ORDERED: CEFTAZIDIME INJ 1 GM VIAL ONE (01:06)
[2019-01-14] MEDS: HEPARIN SOD (PORCINE) 5,000 UNIT/ML 1 ML SYRINGE SUBCUT SCH ×4 (02:29→21:38)
[2019-01-14] MEDS: BUTALB/ACETAMINOPHEN/CAFFEINE 1 TAB EACH PO PRN ×2 (02:33→15:45)
[2019-01-14] MEDS: CEFTAZIDIME PENTAHYDRATE 2 GM in DEXTROSE 5%-WATER 100 ML IV SCH ×3 (02:36→18:23)
--- NOTE | 2019-01-14 02:51 | PDOC H&P ---
History of Present Illness Admission Date/PCP: 01/13/19 21:53 SABAS TSANG MD Patient complains of: Abdominal pain, nausea and vomiting. History of Present Illness: MODESTA HIGUERA is a 63 year old female with a past medical history of migraine headache, diabetes, SVT, hypertension and recurrent UTI. Patient complains of 12 hours of poorly controlled migraine associated with nausea and vomiting with abdominal pain. She denies current headache but complains of chronic urinary incontinence, polyuria and dysuria. In the emergency room she is found to have leukocytosis of 22,[address] abdomen pelvis. Urinalysis is suggestive of UTI. Unable to tolerate p.o. she is referred to the hospitalist for admission. She denies recent antibiotic use. Past Medical History Cardiac Medical History: Reports: Coronary Artery Disease, Myocardial Infarction - 2007 mild , Hyperlipidema, Hypertension Pulmonary Medical History: Reports: Asthma, Bronchitis, Chronic Obstructive Pu lmonary Disease (COPD), Pneumonia - 2010 x 2 Denies: Tuberculosis Neurological Medical History: Reports: Seizures Endocrine Medical History: Reports: Diabetes Mellitus Type 2 Musculoskeltal Medical History: Reports: Arthritis Psychiatric Medical History: Reports: Bipolar Disorder Hematology: Denies: Anemia Past Surgical History Past Surgical History: Reports: Cholecystectomy, Hysterectomy, Orthopedic Surgery - Bilateral hips; does not have rt hip, left hip repair Denies: Pacemaker Social History Information Source: Patient Lives with: Alone Smoking Status: Never Smoker Frequency of Alcohol Use: None Hx Recreational Drug Use: No Drugs: None Hx Prescription Drug Abuse: No - Advance Directive Resuscitation Status: Full Code Family History Family History: None, Malignancy - Dad and brother both from cancer Parental Family History Reviewed: Yes Children Family History Reviewed: Yes Sibling(s) Family History Reviewed.: Yes Medication/Allergy Home Medications: Nitroglycerin [Nitro-Dur 5 mg (0.2 mg/Hr) Transdermal Patch] 1 each TD DAILY 04/19/16 Hydroxyzine Pamoate [Vistaril 25 mg Capsule] 25 mg PO BIDP PRN #30 capsule 04/25/16 Isosorbide Mononitrate [Imdur 30 mg Tablet.er] 30 mg PO QAM #30 tab.er.24h 04/25/16 Montelukast Sodium [Singulair 10 mg Tablet] 10 mg PO DAILY #30 tablet 04/25/16 Nadolol [Corgard 40 mg Tablet] 20 mg PO DAILY #30 tablet 04/25/16 Lorazepam [Ativan 1 mg Tablet] 0.5 mg PO TIDP PRN #15 tablet 04/29/16 Ondansetron [Zofran Odt 4 mg Tablet] 1 - 2 tab PO Q4H PRN #15 tab.rapdis 03/04/18 Cyclobenzaprine HCl [Flexeril 10 mg Tablet] 10 mg PO TIDP PRN #15 tab 03/06/18 Divalproex Sodium [Depakote] 500 mg PO BID #30 tablet.dr 03/06/18 Butalb/Acetaminophen/Caffeine [Fioricet (50-325-40 mg) Tablet] 1 - 2 tab PO Q4H 10/11/18 Carvedilol [Coreg 12.5 mg Tablet] 12.5 mg PO Q12 10/11/18 Cephalexin [Cephalexin 500 MG Tablet] 500 mg PO BID #14 tablet 10/11/18 Dulaglutide [Trulicity] 0.75 mg SQ ASDIR PRN 10/11/18 Duloxetine HCl [Cymbalta 20 mg Capsule.] 20 mg PO DAILY 10/11/18 Losartan Potassium 100 mg PO DAILY 10/11/18 Mirabegron [Myrbetriq] 50 mg PO DAILY 10/11/18 Nitrofurantoin Macrocrystal [Macrodantin] 100 mg PO BID 5 Days #10 capsule 10/11/18 Oxycodone HCl [Oxycodone HCl 10 MG Tablet] 10 mg PO ASDIR PRN 10/11/18 Allergies/Adverse Reactions: fentanyl [From Duragesic] Allergy (Severe, Verified 01/13/19 15:10) Severe rash interferon beta-1b [From Betaseron] Allergy (Severe, Verified 01/13/19 15:10) Seizures morphine [Morphine] Allergy (Severe, Verified 01/13/19 15:10) Swelling, rash, difficulty breathing nalbuphine HCl [From Nubain] Allergy (Severe, Verified 01/13/19 15:10) Swelling, rash, Diff. breathing, Tachycardia quetiapine fumarate [From Seroquel] Allergy (Severe, Verified 01/13/19 15:10) crazy levofloxacin [From Levaquin] Allergy (Intermediate, Verified 01/13/19 15:10) Hives Sulfa (Sulfonamide Antibiotics) Allergy (Intermediate, Verified 01/13/19 15:10) N&V aspirin [Aspirin] Adverse Reaction (Verified 01/13/19 15:10) pt has von willebrands Review of Systems ROS unobtainable: Due to mental status - Patient answers affirmatively to all questions and felt unreliable Constitutional: ABSENT: chills, fever(s), headache(s), weight gain, weight loss Eyes: ABSENT: visual disturbances Ears: ABSENT: hearing changes Cardiovascular: ABSENT: chest pain, dyspnea on exertion, edema, orthropnea, palpitations Respiratory: ABSENT: cough, hemoptysis Gastrointestinal: ABSENT: abdominal pain, constipation, diarrhea, hematemesis, hematochezia, nausea, vomiting Genitourinary: ABSENT: dysuria, hematuria Musculoskeletal: ABSENT: joint swelling Integumentary: ABSENT: rash, wounds Neurological: ABSENT: abnormal gait, abnormal speech, confusion, dizziness, focal weakness, syncope Psychiatric: ABSENT: anxiety, depression, homidical ideation, suicidal ideation Endocrine: ABSENT: cold intolerance, heat intolerance, polydipsia, polyuria Hematologic/Lymphatic: ABSENT: easy bleeding, easy bruising Physical Exam Vital Signs: Temp Pulse Resp BP Pulse Ox 97.6 F 80 16 161/99 H 100 01/13/19 23:45 01/13/19 23:45 01/13/19 23:45 01/13/19 23:45 01/13/19 23:45 Intake & Output 01/12/19 01/13/19 01/14/19 11:59 11:59 11:59 Intake Total 1050 Balance 1050 Weight 62.3 kg General appearance: PRESENT: cooperative, mild distress, well-developed, well- nourished Head exam: PRESENT: atraumatic, normocephalic Eye exam: PRESENT: conjunctiva pink, EOMI, PERRLA. ABSENT: scleral icterus Ear exam: PRESENT: normal external ear exam Mouth exam: PRESENT: moist, tongue midline Neck exam: ABSENT: carotid bruit, JVD, lymphadenopathy, thyromegaly Respiratory exam: PRESENT: clear to auscultation carlos manuel. ABSENT: rales, rhonchi, wheezes Cardiovascular exam: PRESENT: RRR. ABSENT: diastolic murmur, rubs, systolic murmur Pulses: PRESENT: normal dorsalis pedis pul Vascular exam: PRESENT: normal capillary refill GI/Abdominal exam: PRESENT: normal bowel sounds, soft. ABSENT: distended, guarding, mass, organolmegaly, rebound, tenderness Rectal exam: PRESENT: deferred Extremities exam: PRESENT: full ROM. ABSENT: calf tenderness, clubbing, pedal edema Neurological exam: PRESENT: alert, awake, oriented to person, oriented to place, oriented to time, oriented to situation, CN II-XII grossly intact. ABSENT: motor sensory deficit Psychiatric exam: PRESENT: appropriate affect, normal mood. ABSENT: homicidal ideation, suicidal ideation Skin exam: PRESENT: dry, intact, warm. ABSENT: cyanosis, rash Results Laboratory Results: 01/13/19 16:20 01/13/19 16:20 01/13/19 01/13/19 01/13/19 15:48 16:20 16:20 WBC 22.5 H RBC 5.76 H Hgb 16.3 H Hct 49.2 H MCV 86 MCH 28.3 MCHC 33.1 RDW 14.3 H Plt Count 318 Seg Neutrophils % Not Reportable Lymphocytes % Not Reportable Monocytes % Not Reportable Eosinophils % Not Reportable Basophils % Not Reportable Absolute Neutrophils Not Reportable Absolute Lymphocytes Not Reportable Absolute Monocytes Not Reportable Absolute Eosinophils Not Reportable Absolute Basophils Not Reportable Sodium 141.8 Potassium 5.0 Chloride 99 Carbon Dioxide 27 Anion Gap 16 BUN 22 H Creatinine 1.02 Est GFR ( Amer) > 60 Est GFR (Non-Af Amer) 55 L Glucose 177 H Calcium 11.0 H Total Bilirubin 0.6 AST 18 ALT 28 Alkaline Phosphatase 120 Total Protein 9.2 H Albumin 4.9 Amylase 66 Urine Color DARK YELLOW Urine Appearance SLIGHTLY-CLOUDY Urine pH 5.0 Ur Specific [place] 1.023 Urine Protein >=500 H Urine Glucose (UA) NEGATIVE Urine Ketones TRACE H Urine Blood NEGATIVE Urine Nitrite POSITIVE H Ur Leukocyte Esterase SMALL H Urine WBC (Auto) 32 Urine RBC (Auto) 4 01/13/19 20:33 Troponin I < 0.012 Impressions: Abdomen/Pelvis CT 01/13/19 18:01 IMPRESSION: Normal right kidney. Markedly hypoplastic left kidney. Fatty infiltration of the pancreas. Small amount of fluid around the liver and small amount of free fluid in the pelvis. Osseous findings as described. Assessment and Plan - Diagnosis (1) Urinary tract infection Qualifiers: Urinary tract infection type: acute cystitis Hematuria presence: with hematuria Qualified Code(s): N30.01 - Acute cystitis with hematuria Is this a current diagnosis for this admission?: Yes Plan: Recent history of recurrent E. coli urinary tract infection sensitive to cefoxitin. (2) Nausea & vomiting Is this a current diagnosis for this admission?: Yes Plan: Unclear cause, UTI versus migraine versus gastroparesis. Symptomatic management (3) Migraine headache Is this a current diagnosis for this admission?: Yes Plan: Outpatient regiment - Time Time Spent with patient: 25-34 minutes - Inpatient Certification Medical Necessity: Need Close Monitoring Due to Risk of Patient Decompensation
[2019-01-14] MEDS: ACETAMINOPHEN 325 MG TABLET PO PRN (05:03)
[2019-01-14 06:44] LABS: ABSOLUTE EOSINOPHILS # (AUTO) 0.3 10^3/uL (0.0-0.6); ABSOLUTE LYMPHOCYTES (AUTO) 1.5 10^3/uL (0.5-4.7); ABSOLUTE MONOCYTES (AUTO) 1.2 10^3/uL (0.1-1.4); ABSOLUTE NEUT (AUTO) 8.3 10^3/uL (1.7-8.2); BASOPHILS % (AUTO) 0.4 % (0-2); EOSINOPHILS % (AUTO) 2.5 % (0-6); HEMATOCRIT 37.6 % (36.0-47.0); MEAN CORPUSCULAR HEMOGLOBIN 29.2 pg (27.0-33.4); MEAN CORPUSCULAR HGB CONC 33.6 g/dL (32.0-36.0); MEAN CORPUSCULAR VOLUME 87 fl (80-97); MONOCYTES % (AUTO) 10.3 % (3-13); PLATELET COUNT 184 10^3/uL (150-450); RED BLOOD COUNT 4.32 10^6/uL (3.72-5.28); RED CELL DISTRIBUTION WIDTH 14.1 % (11.5-14.0); SEGMENTED NEUTROPHILS % (AUTO) 73.8 % (42-78); TOTAL CELLS COUNTED % (AUTO) 100 %; WHITE BLOOD COUNT 11.2 10^3/uL (4.0-10.5)
[2019-01-14 06:58] LABS: ANION GAP 7 (5-19); BLOOD UREA NITROGEN 25 mg/dL (7-20); CALCIUM 9.1 mg/dL (8.4-10.2); CARBON DIOXIDE 26 mmol/L (22-30); CHLORIDE 105 mmol/L (98-107); GLUCOSE 151 mg/dL (75-110); HEMOGLOBIN 12.6 g/dL (12.0-15.5); POTASSIUM 4.6 mmol/L (3.6-5.0); SODIUM 137.8 mmol/L (137-145)
[2019-01-14] MEDS: INSULIN LISPRO 100 UNIT/ML 3 ML VIAL SUBCUT SCH ×3 (09:06→17:53)
[2019-01-14] MEDS ORDERED: DULOXETINE HCL 20 MG CAPSULE.DR PO SCH (10:00)
[2019-01-14] MEDS ORDERED: (PENDING PHARMACY ID) (Divalproex Sodium [Depakote] 500 MG) PO SCH ×2 (10:00)
[2019-01-14] MEDS ORDERED: (PENDING PHARMACY ID) (Mirabegron [Myrbetriq] 50 MG) PO SCH (10:00)
[2019-01-14] MEDS ORDERED: (PENDING PHARMACY ID) (Losartan Potassium [Losartan Potassium] 100 MG) PO SCH (10:00)
--- NOTE | 2019-01-14 11:01 | EKG REPORT ---
SEVERITY:- BORDERLINE ECG - SINUS RHYTHM PROBABLE LEFT ATRIAL ABNORMALITY BORDERLINE LEFT AXIS DEVIATION BORDERLINE R WAVE PROGRESSION, ANTERIOR LEADS : Confirmed by: Dejah Schwartz 14-Jan-2019 11:00:34
[2019-01-14] MEDS: ISOSORBIDE MONONITRATE 30 MG TAB.ER.24H PO SCH (11:03)
[2019-01-14] MEDS: DIVALPROEX SODIUM 250 MG TABLET.DR PO SCH ×2 (11:03→21:39)
[2019-01-14] MEDS: LOSARTAN POTASSIUM 50 MG TABLET PO SCH ×2 (11:04→21:39)
[2019-01-14] MEDS: NADOLOL 40 MG TABLET PO SCH (11:05)
--- NOTE | 2019-01-14 19:17 | PDOC PROGRESS REPORT ---
Subjective Progress Note for:: 01/14/19 Subjective:: MODESTA HIGUERA is a 63 year old female with a past medical history of migraine headache, diabetes, SVT, hypertension and recurrent UTI who was admitted 01/13/19 for UTI Patient was seen on afternoon rounds. She is found resting in bed comfortably on room air. She does report that she continues to have persistent suprapubic discomfort and urinary frequency. Overall, she does feel much improved as compared to when she was admitted last night. She does report 1-2 episodes of emesis this morning and a poor appetite but is not experiencing nausea at this time. She denies fever, chills, chest pain, palpitations, dyspnea, orthopnea. She has no other questions or concerns at this time. No concerns per nursing. Reason For Visit: UTI NAUSEA VOMITING Physical Exam Vital Signs: Temp Pulse Resp BP Pulse Ox 98.6 F 71 16 125/67 99 01/14/19 16:22 01/14/19 16:22 01/14/19 16:22 01/14/19 16:22 01/14/19 16:22 Intake & Output 01/13/19 01/14/19 01/15/19 06:59 06:59 06:59 Intake Total 2530 1100 Balance 2530 1100 Weight 62.1 kg General appearance: PRESENT: no acute distress, cooperative, well-developed, we ll-nourished - Overweight Head exam: PRESENT: atraumatic, normocephalic Eye exam: PRESENT: conjunctiva pink, EOMI, PERRLA. ABSENT: scleral icterus Ear exam: PRESENT: normal external ear exam Mouth exam: PRESENT: moist, tongue midline Neck exam: ABSENT: carotid bruit, JVD, lymphadenopathy, thyromegaly Respiratory exam: PRESENT: clear to auscultation carlos manuel, symmetrical, unlabored. ABSENT: rales, rhonchi, wheezes Cardiovascular exam: PRESENT: RRR, +S1, +S2. ABSENT: diastolic murmur, rubs, systolic murmur Pulses: PRESENT: normal dorsalis pedis pul Vascular exam: PRESENT: normal capillary refill GI/Abdominal exam: PRESENT: normal bowel sounds, soft, tenderness. ABSENT: distended, guarding, mass, organolmegaly, rebound Rectal exam: PRESENT: deferred Gentrourinary exam: PRESENT: other - Right CVA tenderness Extremities exam: PRESENT: full ROM. ABSENT: calf tenderness, clubbing, pedal edema Neurological exam: PRESENT: alert, awake, oriented to person, oriented to place, oriented to time, oriented to situation, CN II-XII grossly intact. ABSENT: motor sensory deficit Psychiatric exam: PRESENT: appropriate affect, normal mood. ABSENT: homicidal ideation, suicidal ideation Skin exam: PRESENT: dry, intact, warm. ABSENT: cyanosis, rash Results Laboratory Results: 01/14/19 06:18 01/14/19 06:18 01/14/19 01/14/19 06:18 06:18 WBC 11.2 H RBC 4.32 Hgb 12.6 D Hct 37.6 MCV 87 MCH 29.2 MCHC 33.6 RDW 14.1 H Plt Count 184 Seg Neutrophils % 73.8 Lymphocytes % 13.0 Monocytes % 10.3 Eosinophils % 2.5 Basophils % 0.4 Absolute Neutrophils 8.3 H Absolute Lymphocytes 1.5 Absolute Monocytes 1.2 Absolute Eosinophils 0.3 Absolute Basophils 0.0 Sodium 137.8 Potassium 4.6 Chloride 105 Carbon Dioxide 26 Anion Gap 7 BUN 25 H Creatinine 0.93 Est GFR ( Amer) > 60 Est GFR (Non-Af Amer) > 60 Glucose 151 H Calcium 9.1 01/13/19 20:33 Troponin I < 0.012 Impressions: Abdomen/Pelvis CT 01/13/19 18:01 IMPRESSION: Normal right kidney. Markedly hypoplastic left kidney. Fatty infiltration of the pancreas. Small amount of fluid around the liver and small amount of free fluid in the pelvis. Osseous findings as described. Assessment and Plan - Diagnosis (1) Urinary tract infection Qualifiers: Urinary tract infection type: acute cystitis Hematuria presence: with hematuria Qualified Code(s): N30.01 - Acute cystitis with hematuria Is this a current diagnosis for this admission?: Yes Plan: Improved; leukocytosis trending down, patient remains afebrile, clinically improved though remains symptomatic with urinary urgency, frequency, and suprapubic tenderness. Patient is admitted to the medical floor. Recent history of recurrent E. coli urinary tract infection sensitive to cefoxitin and ceftin. Blood and urine cultures pending. She is empirically placed on IV Fortaz. If the patient continues to improve, will plan on discharging on p.o. Ceftin tomorrow with outpatient urology follow-up. (2) Leukocytosis Is this a current diagnosis for this admission?: Yes Plan: Secondary to #1; improved. WBC 22.5-> 11.2 Cultures and antibiotics as above. (3) Migraine headache Is this a current diagnosis for this admission?: Yes Plan: Outpatient regiment of Tylenol and Fioricet. Avoid narcotics to prevent rebound headaches. (4) Nausea & vomiting Is this a current diagnosis for this admission?: Yes Plan: Slight improvement; 2 episodes of emesis today with continued mild nausea. Unclear cause, UTI versus migraine versus gastroparesis. Symptomatic management - Time Time Spent with patient: 15-24 minutes Medications reviewed and adjusted accordingly: Yes Anticipated discharge: Home Within: within 24 hours
[2019-01-14] MEDS ORDERED: MONTELUKAST SODIUM 10 MG TABLET PO SCH (22:00)
[2019-01-14] MEDS: PHENAZOPYRIDINE HCL 100 MG TABLET PO SCH (22:01)
[2019-01-15] MEDS: CEFTAZIDIME PENTAHYDRATE 2 GM in DEXTROSE 5%-WATER 100 ML IV SCH ×2 (01:35→10:51)
[2019-01-15] MEDS: PROMETHAZINE HCL 25 MG TABLET PO PRN (01:41)
[2019-01-15] MEDS: ACETAMINOPHEN 325 MG TABLET PO PRN (01:41)
[2019-01-15 05:34] LABS: HEMATOCRIT 33.6 % (36.0-47.0); HEMOGLOBIN 11.3 g/dL (12.0-15.5); MEAN CORPUSCULAR HGB CONC 33.6 g/dL (32.0-36.0); MEAN CORPUSCULAR VOLUME 86 fl (80-97); PLATELET COUNT 162 10^3/uL (150-450); RED BLOOD COUNT 3.89 10^6/uL (3.72-5.28); RED CELL DISTRIBUTION WIDTH 14.3 % (11.5-14.0); WHITE BLOOD COUNT 7.2 10^3/uL (4.0-10.5)
[2019-01-15] MEDS: HEPARIN SOD (PORCINE) 5,000 UNIT/ML 1 ML SYRINGE SUBCUT SCH ×2 (05:40→15:31)
[2019-01-15] MEDS: PHENAZOPYRIDINE HCL 100 MG TABLET PO SCH (05:40)
[2019-01-15 05:49] LABS: ANION GAP 5 (5-19); BLOOD UREA NITROGEN 13 mg/dL (7-20); CALCIUM 8.8 mg/dL (8.4-10.2); CARBON DIOXIDE 23 mmol/L (22-30); CHLORIDE 112 mmol/L (98-107); GLUCOSE 128 mg/dL (75-110); SODIUM 140.4 mmol/L (137-145)
[2019-01-15] MEDS: INSULIN LISPRO 100 UNIT/ML 3 ML VIAL SUBCUT SCH ×2 (08:19→12:55)
[2019-01-15] MEDS: ISOSORBIDE MONONITRATE 30 MG TAB.ER.24H PO SCH (08:20)
[2019-01-15] MEDS: NADOLOL 40 MG TABLET PO SCH (10:45)
[2019-01-15] MEDS: DIVALPROEX SODIUM 250 MG TABLET.DR PO SCH (10:45)
[2019-01-15] MEDS: LOSARTAN POTASSIUM 50 MG TABLET PO SCH (10:46)
[2019-01-15 12:52] VITALS: BP 149/78
--- NOTE | 2019-01-19 11:11 | PDOC DISCHARGE SUMMARY ---
General - Admit/Disc Date/PCP Admission Date/Primary Care Provider: 01/13/19 21:53 SABAS TSANG MD Discharge Date: 01/15/19 - Discharge Diagnosis (1) Urinary tract infection Is this a current diagnosis for this admission?: Yes Summary: Improved; leukocytosis has resolved, patient remains afebrile. Pt reports resolution of dysuria with use of pyridium; decreased urinary urgency and frequency. Recent history of recurrent E. coli urinary tract infection sensitive to cefoxi tin and ceftin. Blood and urine cultures have no growth. Patient was admitted to the medical floor. She was empirically placed on IV Fortaz; transitioned to Ceftin for completion of antibiotic therapy post-discharge. Pyridium for discomfort. On afternoon of discharge, patient is requesting to be discharged to home. She is in stable condition, with significantly improved symptoms (slight dysuria and frequency only). She is in stable condition, afebrile, with nml WBC. She is provided a prescription for Ceftin to complete antibiotic course and pyridium and phenergan for symptom management. She is encouraged to drink plenty of water. She is advised to follow up with her primary care provider within 1 week and to return to the emergency department as needed for concerning symptoms. MAy benefit from outpatient Urology referral for evaluation/management of chronic UTI. (2) Leukocytosis Is this a current diagnosis for this admission?: Yes Summary: Resolved; WBC 22.5-> 11.2-> 7.2 Secondary to #1 Cultures and antibiotics as above. (3) Migraine headache Is this a current diagnosis for this admission?: Yes Summary: Resolved. Recommend she drink plenty of water, avoid known triggers, and continue her outpatient medication regimen. Recommend she discuss frequency of migraine headaches with PCP; may benefit from daily phrophylaxis. (4) Nausea & vomiting Is this a current diagnosis for this admission?: Yes Summary: Resolved; secondary to #1 Drink plenty of water, advance diet as tolerated. She is provided a prescription for as needed phenergan. - Additional Information Resuscitation Status: Full Code Discharge Diet: Cardiac Discharge Activity: Activity As Tolerated, Balance Activity w/Rest, Slowly Increase Activity Prescriptions: Cefuroxime Axetil [Ceftin 250 mg Tablet] 1 tab PO BID #10 tablet Phenazopyridine HCl [Pyridium 100 mg Tablet] 100 mg PO Q8 #9 tablet Promethazine HCl [Phenergan 25 mg Tablet] 25 mg PO Q6HP PRN #12 tablet PRN Reason: Home Medications: Isosorbide Mononitrate [Imdur 30 mg Tablet.er] 30 mg PO QAM #30 tab.er.24h 04/25/16 Nadolol [Corgard 40 mg Tablet] 20 mg PO DAILY #30 tablet 04/25/16 Lorazepam [Ativan 1 mg Tablet] 0.5 mg PO TIDP PRN #15 tablet 04/29/16 Butalb/Acetaminophen/Caffeine [Fioricet (50-325-40 mg) Tablet] 1 tab PO Q6HP PRN 10/11/18 Carvedilol [Coreg 12.5 mg Tablet] 12.5 mg PO Q12 10/11/18 Losartan Potassium 100 mg PO Q12 10/11/18 Mirabegron [Myrbetriq] 50 mg PO DAILY 10/11/18 Cholecalciferol (Vitamin D3) [Vitamin D3 1000 Unit Tablet] 1,000 unit PO DAILY 01/14/19 Divalproex Sodium [Depakote] 500 mg PO Q12 01/14/19 Duloxetine HCl [Cymbalta] 60 mg PO DAILY 01/14/19 Glimepiride [Amaryl] 2 mg PO DAILY 01/14/19 Hydroxyzine Pamoate [Vistaril 25 mg Capsule] 25 mg PO Q6HP PRN 01/14/19 Montelukast Sodium [Singulair 10 mg Tablet] 10 mg PO QHS 01/14/19 Multivitamin [Tab-A-Rasheed (Multiple Vitamin) Tablet] 1 tab PO DAILY 01/14/19 Acetaminophen [Tylenol 325 mg Tablet] 650 mg PO Q4HP PRN tablet 01/15/19 Cefuroxime Axetil [Ceftin 250 mg Tablet] 1 tab PO BID #10 tablet 01/15/19 Phenazopyridine HCl [Pyridium 100 mg Tablet] 100 mg PO Q8 #9 tablet 01/15/19 Promethazine HCl [Phenergan 25 mg Tablet] 25 mg PO Q6HP PRN #12 tablet 01/15/19 History of Present Illness History of Present Illness: PEr H&P by Dr. Tafoya: MODESTA HIGUERA is a 63 year old female with a past medical history of migraine headache, diabetes, SVT, hypertension and recurrent UTI. Patient complains of 12 hours of poorly controlled migraine associated wit h nausea and vomiting with abdominal pain. She denies current headache but complains of chronic urinary incontinence, polyuria and dysuria. In the emergency room she is found to have leukocytosis of 22,[address] abdomen pelvis. Urinalysis is suggestive of UTI. Unable to tolerate p.o. she is referred to the hospitalist for admission. She denies recent antibiotic use. Physical Exam Vital Signs: Temp Pulse Resp BP Pulse Ox 98.0 F 78 16 149/78 H 97 01/15/19 11:54 01/15/19 11:54 01/15/19 11:54 01/15/19 11:54 01/15/19 11:54 General appearance: PRESENT: no acute distress, cooperative, obese, well- developed, well-nourished - overweight Head exam: PRESENT: atraumatic, normocephalic Eye exam: PRESENT: conjunctiva pink, EOMI, PERRLA. ABSENT: scleral icterus Ear exam: PRESENT: normal external ear exam Mouth exam: PRESENT: moist, tongue midline Teeth exam: PRESENT: edentulous Neck exam: ABSENT: carotid bruit, JVD, lymphadenopathy, thyromegaly Respiratory exam: PRESENT: clear to auscultation carlos manuel, symmetrical, unlabored. ABSENT: rales, rhonchi, wheezes Cardiovascular exam: PRESENT: RRR. ABSENT: diastolic murmur, rubs, systolic murmur Pulses: PRESENT: normal dorsalis pedis pul Vascular exam: PRESENT: normal capillary refill GI/Abdominal exam: PRESENT: hernia - umbilical; spontaneously reduces, normal b owel sounds, soft, tenderness. ABSENT: distended, guarding, mass, organolmegaly, rebound Rectal exam: PRESENT: deferred Extremities exam: PRESENT: full ROM. ABSENT: calf tenderness, clubbing, pedal edema Neurological exam: PRESENT: alert, awake, oriented to person, oriented to place, oriented to time, oriented to situation, CN II-XII grossly intact. ABSENT: motor sensory deficit Psychiatric exam: PRESENT: appropriate affect, normal mood. ABSENT: homicidal ideation, suicidal ideation Skin exam: PRESENT: dry, intact, warm. ABSENT: cyanosis, rash Results Laboratory Results: 01/15/19 05:20 01/15/19 05:20 01/14/19 10:07 Blood Blood Culture - Final NO GROWTH IN 5 DAYS 01/14/19 09:00 Blood Blood Culture - Final NO GROWTH IN 5 DAYS 01/13/19 20:33 Troponin I < 0.012 Impressions: Abdomen/Pelvis CT 01/13/19 18:01 IMPRESSION: Normal right kidney. Markedly hypoplastic left kidney. Fatty infiltration of the pancreas. Small amount of fluid around the liver and small amount of free fluid in the pelvis. Osseous findings as described. Qualifiers - * PATIENT BEING DISCHARGED WITH ANY OF THE FOLLOWING DIAGNOSIS: No Plan Discharge Plan: Follow up with primary care provider within 1 week. Recommend outpatient urology referral for evaluation of chronic UTI. Recommend outpatient surgical referral for evaluation of umbilical hernia. Drink plenty of water. Complete antibiotic course. Return to the emergency department as needed for concerning symptoms. Time Spent: Less than 30 Minutes
== END 2019-01-15 17:09 | disposition home or self-care (01) | DRG 690 ==
LOC: ER 14:10 → EH 21:53 → 2N 23:25
PROVIDERS: ADMIT Internal Medicine; ATTEND Internal Medicine
DX: N30.01 Acute cystitis with hematuria (principal); B96.20 Unspecified Escherichia coli [E. coli] as the cause of diseases classified elsewhere; G43.909 Migraine, unspecified, not intractable, without status migrainosus; E11.9 Type 2 diabetes mellitus without complications; I10 Essential (primary) hypertension; E78.5 Hyperlipidemia, unspecified; I25.10 Atherosclerotic heart disease of native coronary artery without angina pectoris; F31.9 Bipolar disorder, unspecified; I25.2 Old myocardial infarction; Z60.2 Problems related to living alone; Z86.14 Personal history of Methicillin resistant Staphylococcus aureus infection; Z79.899 Other long term (current) drug therapy; Z90.49 Acquired absence of other specified parts of digestive tract; Z90.710 Acquired absence of both cervix and uterus; Z79.891 Long term (current) use of opiate analgesic; Z88.6 Allergy status to analgesic agent; Z88.3 Allergy status to other anti-infective agents; Z88.2 Allergy status to sulfonamides; Z88.8 Allergy status to other drugs, medicaments and biological substances; Z80.9 Family history of malignant neoplasm, unspecified
CPT/HCPCS: 36415; 74176; 80048; 80053; 81001; 82150; 82962; 84484; 85025; 85027; 87040; 87086; 93005; 93010; 96361; 96365; 96375; 96376; 99285; J0696; J0713; J1170; J1644; J1815; J2405; J2765; J3490; J7030; J7120

== ENCOUNTER 2019-03-11 18:04 | Emergency (ER) | payer MEDICARE, MEDICAID ==
[2019-03-11] MEDS ORDERED: NORMAL SALINE 1000 ML 1,000 ML IV ONE (18:54)
[2019-03-11] MEDS ORDERED: LORAZEPAM INJ 2 MG/1 ML VIAL ONE (19:30)
[2019-03-11] MEDS ORDERED: LORAZEPAM INJ 2 MG/1 ML VIAL IM ONE (19:34)
[2019-03-11] MEDS ORDERED: DIPHENHYDRAMINE HCL 50 MG/ML VIAL IV ONE (20:02)
--- NOTE | 2019-03-11 21:11 | RADIOLOGY REPORT (SQ) ---
EXAM DESCRIPTION: XR PELVIS 1-2 VIEWS COMPLETED DATE/TME: 03/11/2019 20:02 CLINICAL HISTORY: 63 years, Female, hip pain COMPARISON: Prior study from 01/13/2019 NUMBER OF VIEWS: One TECHNIQUE: Single frontal view of the pelvis was obtained. LIMITATIONS: None. FINDINGS: Visualized are postsurgical changes of placement of intramedullary saima and gamma nail about the left femur. Visualized portions of the hardware appear well seated and intact. Mild left hip joint osteoarthrosis is noted. In addition, there is unchanged chronic deformity of the proximal right femur/femoral head (with likely resection of the femoral head) with superior subluxation/dislocation of the residua of the proximal femur. IMPRESSION: No definite acute osseous anomaly. copyright 2010 [facility] [employer]- All Rights Reserved
[2019-03-11 21:33] LABS: ABSOLUTE BASOPHILS # (AUTO) 0.1 10^3/uL (0.0-0.2); ABSOLUTE EOSINOPHILS # (AUTO) 0.4 10^3/uL (0.0-0.6); ABSOLUTE LYMPHOCYTES (AUTO) 2.9 10^3/uL (0.5-4.7); ABSOLUTE MONOCYTES (AUTO) 1.2 10^3/uL (0.1-1.4); ABSOLUTE NEUT (AUTO) 7.4 10^3/uL (1.7-8.2); BASOPHILS % (AUTO) 0.6 % (0-2); EOSINOPHILS % (AUTO) 2.9 % (0-6); HEMATOCRIT 41.3 % (36.0-47.0); HEMOGLOBIN 13.7 g/dL (12.0-15.5); LYMPHOCYTES % (AUTO) 24.1 % (13-45); MEAN CORPUSCULAR HEMOGLOBIN 28.3 pg (27.0-33.4); MEAN CORPUSCULAR HGB CONC 33.3 g/dL (32.0-36.0); MEAN CORPUSCULAR VOLUME 85 fl (80-97); MONOCYTES % (AUTO) 10.2 % (3-13); PLATELET COUNT 187 10^3/uL (150-450); RED BLOOD COUNT 4.86 10^6/uL (3.72-5.28); RED CELL DISTRIBUTION WIDTH 14.3 % (11.5-14.0); SEGMENTED NEUTROPHILS % (AUTO) 62.2 % (42-78); TOTAL CELLS COUNTED % (AUTO) 100 %; WHITE BLOOD COUNT 11.9 10^3/uL (4.0-10.5)
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
[2019-03-11 21:56] LABS: ALANINE AMINOTRANSFERASE 27 U/L (9-52); ALBUMIN 4.8 g/dL (3.5-5.0); ALKALINE PHOSPHATASE 93 U/L (38-126); ANION GAP 14 (5-19); ASPARTATE AMINO TRANSFERASE 29 U/L (14-36); BILIRUBIN,DIRECT 0.5 mg/dL (0.0-0.4); BILIRUBIN,TOTAL 0.7 mg/dL (0.2-1.3); BLOOD UREA NITROGEN 30 mg/dL (7-20); CALCIUM 10.2 mg/dL (8.4-10.2); CARBON DIOXIDE 22 mmol/L (22-30); CHLORIDE 105 mmol/L (98-107); CREATINE KINASE 117 U/L (30-135); GLUCOSE 142 mg/dL (75-110); POTASSIUM 5.3 mmol/L (3.6-5.0); SODIUM 140.7 mmol/L (137-145); TOTAL PROTEIN 8.3 g/dL (6.3-8.2)
[2019-03-11 21:57] LABS: ACETAMINOPHEN < 10 ug/mL (10-30); ALCOHOL < 10 mg/dL (NONE DETECTED); SALICYLATE < 1.0 mg/dL (2.0-20.0)
[2019-03-11 22:11] LABS: TROPONIN I < 0.012 ng/mL
[2019-03-11] MEDS ORDERED: RINGERS SOLUTION,LACTATED 1,000 ML IV ONE (22:31)
[2019-03-11] MEDS ORDERED: METRONIDAZOLE 500 MG/NS RTU 100 ML IV ONE (22:35)
[2019-03-11] MEDS ORDERED: ERTAPENEM SODIUM INJ 1 GM VIAL IV ONE (22:36)
[2019-03-12 02:23] LABS: AMORPHOUS SEDIMENT,URINE TRACE /HPF; APPEARANCE,URINE CLOUDY; BILIRUBIN,URINE NEGATIVE (NEGATIVE); COLOR,URINE YELLOW; GLUCOSE, URINE NEGATIVE (NEGATIVE); KETONES,URINE 20 mg/dL (NEGATIVE); LEUKOCYTE ESTERASE,URINE LARGE (NEGATIVE); NITRITE,URINE NEGATIVE (NEGATIVE); PROTEIN,URINE 30 mg/dL (NEGATIVE); URINE SPECIFIC GRAVITY 1.019; UROBILINOGEN,URINE NEGATIVE mg/dL (<2.0)
[2019-03-12 02:41] LABS: URINE AMPHETAMINES SCREEN NEGATIVE; URINE BARBITURATES SCREEN UNCONFIRMED POSITIVE; URINE BENZODIAZEPINES SCREEN NEGATIVE; URINE COCAINE SCREEN NEGATIVE; URINE MARIJUANA (THC) SCREEN NEGATIVE; URINE METHADONE SCREEN NEGATIVE; URINE PHENCYCLIDINE SCREEN NEGATIVE
[2019-03-12] MEDS ORDERED: CEFTRIAXONE 1 GM/D5W RTU 1 GM/50 ML RTUPB IV ONE (04:03)
[2019-03-12] MEDS ORDERED: ONDANSETRON HCL INJ/PF 4 MG/2 ML SDV IV ONE (04:03)
--- NOTE | 2019-03-12 04:20 | ER Document Report ---
Doctor's Note Notes: 03/12/19 04:19 Care of this patient was turned over to me at the beginning of my shift. In short patient is a 63-year-old female who has a history of mental illness. She was being evaluated for altered mental status. Evidently her urine had not yet been completed. Her urinalysis did reveal significant amount of white blood cells, consistent with UTI. Urine was sent for culture. She is given a dose of IV Rocephin. Will write a prescription for Keflex and make sure it is placed on the chart.
--- NOTE | 2019-03-12 07:14 | EKG REPORT ---
SEVERITY:- ABNORMAL ECG - SINUS RHYTHM NONSPECIFIC ST-T CHANGES ANTEROSEPTAL LEADS : Confirmed by: Willie Juan MD 12-Mar-2019 07:13:18
[2019-03-12] MEDS ORDERED: CHLORPROMAZINE HCL 50 MG TABLET PO PRN (12:52)
[2019-03-12] MEDS ORDERED: BENZTROPINE MESYLATE 1 MG TABLET PO SCH (13:00)
[2019-03-12] MEDS: DIVALPROEX SODIUM 250 MG TAB.SR.24H PO SCH ×3 (13:33→17:58)
[2019-03-12] MEDS ORDERED: CHLORPROMAZINE HCL INJ 25 MG/1 ML AMPULE IM PRN (13:41)
--- NOTE | 2019-03-12 14:06 | ER Document Report ---
Doctor's Note Notes: 03/12/19 14:00 Rounds: Chart reviewed and patient interviewed. Patient is being evaluated for altered mental status. She has a history of bipolar disorder. Waning and near tearful. Patient's urinalysis looks like a UTI and the patient has been started on Rocephin 1 g daily. Other labs are essentially normal. Vital signs are all normal. Patient appears to be medically stable for transfer or discharge. Martha Salvador MD
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
[2019-03-13] MEDS ORDERED: FAMOTIDINE 20 MG TABLET PO ONE (04:45)
[2019-03-13] MEDS ORDERED: DIPHENHYDRAMINE HCL 50 MG CAPSULE PO ONE (04:45)
--- NOTE | 2019-03-13 10:10 | ER Document Report ---
Doctor's Note Notes: 03/13/19 10:09 Rounds: Chart reviewed. Patient not interviewed because she is sleeping at this time. Staff reports the patient is acting much more commonly than she yesterday afternoon. Patient is being evaluated for altered mental status. History of bipolar disorder. Possible UTI. Patient has urine that suggest a UTI, but no results on urine culture yet. She is been getting Rocephin daily. Vital signs are all essentially normal. Patient appears to be medically stable for transfer or discharge. Martha Salvador MD
[2019-03-13] MEDS ORDERED: CEFTRIAXONE 1 GM/D5W RTU 1 GM/50 ML RTUPB IV ONE (13:46)
[2019-03-13 14:43] VITALS: BP 156/86
== END 2019-03-13 14:43 | disposition other institution (70) ==
LOC: ER 18:04
DX: N39.0 Urinary tract infection, site not specified (principal); R41.82 Altered mental status, unspecified; F17.210 Nicotine dependence, cigarettes, uncomplicated; I25.10 Atherosclerotic heart disease of native coronary artery without angina pectoris; E78.00 Pure hypercholesterolemia, unspecified; I10 Essential (primary) hypertension; Z88.6 Allergy status to analgesic agent; Z86.14 Personal history of Methicillin resistant Staphylococcus aureus infection; Z88.2 Allergy status to sulfonamides; Z87.442 Personal history of urinary calculi; I25.2 Old myocardial infarction
CPT/HCPCS: 93005; 99283; 36415; 87086; 82553; 82962; 80307 ×4; 82550; 85025; 87088; 80053; 81001; 84484; 80164; 87186; 72170; 93010; A9270 ×4; J3230; J1200; J2060; J2405; J7030; J0696; J3490

== ENCOUNTER 2020-06-22 06:59 | Emergency (ER) | payer MEDICARE, MEDICAID ==
[2020-06-22 11:29] LABS: APPEARANCE,URINE CLOUDY; BILIRUBIN,URINE NEGATIVE (NEGATIVE); COLOR,URINE YELLOW; GLUCOSE, URINE 50 mg/dL (NEGATIVE); KETONES,URINE NEGATIVE (NEGATIVE); LEUKOCYTE ESTERASE,URINE LARGE (NEGATIVE); NITRITE,URINE NEGATIVE (NEGATIVE); PROTEIN,URINE 30 mg/dL (NEGATIVE); URINE SPECIFIC GRAVITY 1.015; UROBILINOGEN,URINE NEGATIVE mg/dL (<2.0)
--- NOTE | 2020-06-22 11:41 | ER Document Report ---
Entered by ARI WHITE SCRIBE 06/22/20 1054 Acting as scribe for:BIRGIT HARDY MD ED General - General Chief Complaint: Flank Pain Stated Complaint: BACK PAIN Time Seen by Provider: 06/22/20 10:52 Primary Care Provider: GERALD DHALIWAL MD [Primary Care Provider] - Follow up as needed Mode of Arrival: Medic Information source: Patient, Emergency Med Personnel Notes: This 65 year old female patient brought in by EMS from home presents to the ED today for evaluation of a near-fall that occurred last night. Patient states that she was getting ready for bed last night when she slipped and caught herself on the bed. She initially denies any pain with the near-fall, but later reports "shooting pains" from her legs. TRAVEL OUTSIDE OF THE [place] IN LAST 30 DAYS: No - Related Data Allergies/Adverse Reactions: fentanyl [From Duragesic] Allergy (Severe, Verified 06/22/20 10:31) Severe rash interferon beta-1b [From Betaseron] Allergy (Severe, Verified 06/22/20 10:31) Seizures morphine [Morphine] Allergy (Severe, Verified 06/22/20 10:31) Swelling, rash, difficulty breathing nalbuphine HCl [From Nubain] Allergy (Severe, Verified 06/22/20 10:31) Swelling, rash, Diff. breathing, Tachycardia quetiapine fumarate [From Seroquel] Allergy (Severe, Verified 06/22/20 10:31) crazy levofloxacin [From Levaquin] Allergy (Intermediate, Verified 06/22/20 10:31) Hives Sulfa (Sulfonamide Antibiotics) Allergy (Intermediate, Verified 06/22/20 10:31) N&V aspirin [Aspirin] Adverse Reaction (Verified 06/22/20 10:31) pt has von willebrands Home Medications: Duloxetine, Divalproex Past Medical History - General Information source: [facility] Records - Social History Smoking Status: Never Smoker Cigarette use (# per day): No Chew tobacco use (# tins/day): No Smoking Education Provided: No Lives with: Alone Family History: Reviewed & Not Pertinent, Malignancy - Dad and brother both from cancer - Past Medical History Cardiac Medical History: Reports: Hx Coronary Artery Disease, Hx Heart Attack - 2008 mild , Hx Hypercholesterolemia, Hx Hypertension Pulmonary Medical History: Reports: Hx Asthma, Hx Bronchitis, Hx Pneumonia - 2011 x2 Neurological Medical History: Reports: Hx Migraine, Hx Seizures Endocrine Medical History: Reports: Hx Diabetes Mellitus Type 2 Renal/ Medical History: Reports: Hx Kidney Stones Musculoskeletal Medical History: Reports Hx Arthritis, Reports Hx Multiple Sclerosis Skin Medical History: Reports Hx MRSA Psychiatric Medical History: Reports: Hx Bipolar Disorder Past Surgical History: Reports: Hx Cholecystectomy, Hx Hysterectomy, Hx Orthope dic Surgery - Bilateral hips; does not have rt hip, left hip repair - Immunizations Hx Diphtheria, Pertussis, Tetanus Vaccination: Yes Hx Pneumococcal Vaccination: 03/17/13 Review of Systems - Review of Systems Constitutional: No symptoms reported EENT: No symptoms reported Cardiovascular: No symptoms reported Respiratory: No symptoms reported Gastrointestinal: No symptoms reported Genitourinary: See HPI Female Genitourinary: No symptoms reported Musculoskeletal: See HPI Skin: No symptoms reported Hematologic/Lymphatic: No symptoms reported Neurological/Psychological: No symptoms reported -: Yes All other systems reviewed and negative Physical Exam - Vital signs Vitals: Temp Pulse Resp BP Pulse Ox 97.8 F 75 18 153/98 H 96 06/22/20 07:28 06/22/20 07:28 06/22/20 07:28 06/22/20 07:28 06/22/20 07:28 - General General appearance: Alert In distress: None - HEENT Head: Normocephalic, Atraumatic Eyes: Normal Pupils: PERRL - Respiratory Respiratory status: No respiratory distress Chest status: Nontender Breath sounds: Normal Chest palpation: Normal - Cardiovascular Rhythm: Regular Heart sounds: Normal auscultation Murmur: No Friction rub: No Gallop: None auscultated - Abdominal Inspection: Normal Distension: No distension Bowel sounds: Normal Tenderness: Nontender - Abdomen soft Organomegaly: No organomegaly - Back Back: Nontender - Lumbar and sacral back is not tender to palpate., CVA tenderness - Right CVA percussion tenderness, no left-sided tenderness. - Extremities General upper extremity: Normal inspection General lower extremity: Edema - Hard, shiny edema noted to RLE that does not go above the knee. No erythema, tenderness to palpation, or warmth Hip: Normal - Internal and external rotation of the right hip is intact without any tenderness - Neurological Neuro grossly intact: Yes Orientation: AAOx4 [place] Coma Scale Eye Opening: Spontaneous [place] Coma Scale Verbal: Oriented Heidi Coma Scale Motor: Obeys Commands [place] Coma Scale Total: 15 - Psychological Associated symptoms: Normal affect, Normal mood - Skin Skin Temperature: Warm Skin Moisture: Dry Skin Color: Normal Course - Vital Signs Vital signs: Temp Pulse Resp BP Pulse Ox 97.8 F 75 18 153/98 H 96 06/22/20 07:28 06/22/20 07:28 06/22/20 07:28 06/22/20 07:28 06/22/20 07:28 - Laboratory Result Diagrams: 06/22/20 11:46 06/22/20 11:46 Laboratory results interpreted by me: 06/22/20 06/22/20 06/22/20 10:27 11:46 11:46 WBC 11.7 H RDW 14.9 H Glucose 198 H AST 13 L Alkaline Phosphatase 152 H Urine Protein 30 H Urine Glucose (UA) 50 H Urine Blood SMALL H Ur Leukocyte Esterase LARGE H - Diagnostic Test Radiology reviewed: Image reviewed, Reports reviewed - X-ray shows old proximal femur fracture with overriding fragments that have fused and destruction of the acetabulum. This is unchanged from prior films. Noncontrast CT scan abdomen pelvis shows a markedly atrophied left kidney with several calculi measuring up to 3 mm. There is a 2 mm ureteral calculus at the level of L4-5 with mild hydronephrosis. - EKG Interpretation by Me EKG shows normal: Sinus rhythm, Lerna, Intervals, QRS Complexes. abnormal: ST-T Waves - Nonspecific anterior T abnormalities Rate: Normal - 71 Rhythm: NSR, APC's When compared to previous EKG there are: No significant change Discharge - Discharge Clinical Impression: Left ureteral stone, Hydronephrosis, left Urinary tract infection Qualifiers: Urinary tract infection type: site unspecified Hematuria presence: with hematuria Qualified Code(s): N39.0 - Urinary tract infection, site not specified Condition: Stable Disposition: HOME, SELF-CARE Additional Instructions: Urinary Tract Infection: Your evaluation indicates that you have a urinary tract infection. This is due to germs growing in the bladder. This is a common problem. This infection usually responds quickly to antibiotics. Your antibiotic should be taken exactly as prescribed. Drink plenty of fluids -- three to four quarts a day. Occasionally, a bladder anesthetic will be prescribed to help stop the feeling of urgency until the antibiotic has a chance to clear the infection. This may cause your urine to be dark orange. Certain urine infections require a culture. If the doctor obtained a culture, the results will be back in two days. You should call to see if a change in treatment is needed. A repeat urinalysis after you finish treatment is often recommended. The physician will let you know if further testing is required. Call the doctor if you develop fever, chills, flank pain, inability to urinate, or blood in the urine. Kidney Stone: You are passing or have passed a kidney stone. These stones are usually due to increased calcium or uric acid concentrations in your urine. Stones within the kidney itself are not painful. The pain occurs as the stone leaves the kidney to pass down the long tube, called the ureter, leading to the bladder. If the stone is small, it will usually pass by itself. Most patients can pass the stone at home. You will usually receive medications for pain, nausea or vomiting, and sometimes a medication to assist in passing the kidney stone. However, if the pain is very severe or if vomiting prevents you from taking oral pain medications, you may need to return for further treatment. Drink three or four quarts of fluids per day. You will be given pain medication (if needed) and urine strainers. Strain all your urine to see if the stone passes. If your doctor has asked you to bring the stone in for analysis, return with the stone once it has passed. Return if pain or vomiting become severe, if you develop a high fever, if you are unable to pass your urine, or if other unusual symptoms occur. Your evaluation today shows that you have a daily urine infection. You also have several stones in your left kidney and one stone in the ureter of the left kidney. There is some hydronephrosis on that side. On your examination your pain seem to be over the right kidney so I do not know if perhaps the infection is in the right kidney. Take the medications as prescribed. Drink plenty of fluids. Rest. Follow-up with Dr. Tafoya at [facility] in the [place] office on Friday at 11:30 AM. Try to get there 30 minutes before your appointment time. Return to the emergency room if you have any fever or vomiting. RETURN TO THE EMERGENCY ROOM IF ANY NEW OR WORSENING SYMPTOMS. Prescriptions: Tamsulosin HCl [Flomax 0.4 mg Cap.sr] 0.4 mg PO DAILY #7 cap.sr.24h Cephalexin Monohydrate [Keflex 500 mg Capsule] 500 mg PO QID #28 capsule Hydrocodone/Acetaminophen [Varney 5-325 mg Tablet] 1 tab PO ASDIR PRN #12 tablet PRN Reason: For Pain Referrals: SABAS TSANG MD [NO LOCAL MD] - Follow up as needed [facility] [Provider Group] - 06/26/20 11:30 am I personally performed the services described in the documentation, reviewed and edited the documentation which was dictated to the scribe in my presence, and it accurately records my words and actions.
[2020-06-22 12:06] LABS: ABSOLUTE BASOPHILS # (AUTO) 0.1 10^3/uL (0.0-0.2); ABSOLUTE EOSINOPHILS # (AUTO) 0.6 10^3/uL (0.0-0.6); ABSOLUTE LYMPHOCYTES (AUTO) 2.6 10^3/uL (0.5-4.7); ABSOLUTE MONOCYTES (AUTO) 0.7 10^3/uL (0.1-1.4); ABSOLUTE NEUT (AUTO) 7.8 10^3/uL (1.7-8.2); EOSINOPHILS % (AUTO) 4.8 % (0-6); HEMATOCRIT 38.4 % (36.0-47.0); HEMOGLOBIN 12.8 g/dL (12.0-15.5); LYMPHOCYTES % (AUTO) 21.8 % (13-45); MEAN CORPUSCULAR HGB CONC 33.3 g/dL (32.0-36.0); MEAN CORPUSCULAR VOLUME 84 fl (80-97); MONOCYTES % (AUTO) 5.8 % (3-13); PLATELET COUNT 223 10^3/uL (150-450); RED BLOOD COUNT 4.56 10^6/uL (3.72-5.28); RED CELL DISTRIBUTION WIDTH 14.9 % (11.5-14.0); SEGMENTED NEUTROPHILS % (AUTO) 66.6 % (42-78); TOTAL CELLS COUNTED % (AUTO) 100 %; WHITE BLOOD COUNT 11.7 10^3/uL (4.0-10.5)
--- NOTE | 2020-06-22 12:10 | RADIOLOGY REPORT (SQ) ---
EXAM DESCRIPTION: HIP RIGHT AP/LATERAL IMAGES COMPLETED DATE/TIME: 06/22/2020 11:38 am REASON FOR STUDY: fall, C/O R hip and sacral pain COMPARISON: None. NUMBER OF VIEWS: Two views. TECHNIQUE: AP pelvis and additional frog legview of the right hip. LIMITATIONS: None. FINDINGS: MINERALIZATION: Normal. RIGHT HIP: Right hip dysplasia. Old fracture of the proximal right femur. No acute finding. LEFT HIP: ORIF of prior fracture. PUBIS AND ISCHIUM: No fracture. PELVIS: No fracture. SACRUM: No fracture or dislocation. No worrisome bone lesions. LOWER LUMBAR SPINE: No fracture or dislocation. No worrisome bone lesions. No significant disc disea se. SOFT TISSUES: No findings. OTHER: No other significant finding. IMPRESSION: No acute findings. 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 TECHNICAL DOCUMENTATION: JOB ID: [id number] 2010 [employer]- All Rights Reserved Reading location - IP/workstation name: [email or web address]
[2020-06-22 12:23] LABS: ALBUMIN 4.3 g/dL (3.5-5.0); ALKALINE PHOSPHATASE 152 U/L (38-126); ANION GAP 10 (5-19); ASPARTATE AMINO TRANSFERASE 13 U/L (14-36); BILIRUBIN,DIRECT 0.4 mg/dL (0.0-0.4); BILIRUBIN,TOTAL 0.5 mg/dL (0.2-1.3); BLOOD UREA NITROGEN 19 mg/dL (7-20); CALCIUM 9.5 mg/dL (8.4-10.2); CARBON DIOXIDE 29 mmol/L (22-30); CHLORIDE 101 mmol/L (98-107); CREATINE KINASE 35 U/L (30-135); GLUCOSE 198 mg/dL (75-110); POTASSIUM 4.7 mmol/L (3.6-5.0); TOTAL PROTEIN 7.7 g/dL (6.3-8.2)
[2020-06-22] MEDS ORDERED: CEFTRIAXONE 1 GM/D5W RTU 1 GM/50 ML RTUPB IV ONE (13:34)
--- NOTE | 2020-06-22 14:26 | RADIOLOGY REPORT (SQ) ---
EXAM DESCRIPTION: CT ABD/PELVIS NO ORAL OR IV IMAGES COMPLETED DATE/TIME: 06/22/2020 2:10 pm REASON FOR STUDY: R flank pain,UTI with hematuria,PMH kidney stones COMPARISON: Most recent 01/13/2019. TECHNIQUE: CT scan of the abdomen and pelvis performed without intravenous or oral contrast. Images reviewed with lung, soft tissue, and bone windows. Reconstructed coronal and sagittal MPR images revi ewed. All images stored on PACS. All CT scanners at this facility use dose modulation, iterative reconstruction, and/or weight based d osing when appropriate to reduce radiation dose to as low as reasonably achievable (ALARA). [facility]: Dose Right [facility]: CareDose [facility]: Dose Right [facility]: Teradose 4D [facility]: [employer] RADIATION DOSE: CT Rad equipment meets quality standard of care and radiation dose reduction techniq ues were employed. CTDIvol: 9.0 mGy. DLP: 495 mGy-cm.mGy. LIMITATIONS: None. FINDINGS: LOWER CHEST: Left basilar atelectasis. NON-CONTRASTED LIVER, SPLEEN, ADRENALS: Evaluation limited by lack of IV contrast. No identified sign ificant masses. PANCREAS: No masses. No peripancreatic inflammatory changes. GALLBLADDER: Surgically absent. RIGHT KIDNEY AND URETER: No suspicious masses. Assessment limited by lack of IV contrast. No signif icant calcifications. No hydronephrosis or hydroureter. LEFT KIDNEY AND URETER: No suspicious masses. Assessment limited by lack of IV contrast. Marked atr ophy. Renal calculi measuring up to 3 mm. 2 mm ureteral calculus at level of L4- 5. Mild hydronep hrosis. AORTA AND RETROPERITONEUM: No aneurysm. No retroperitoneal masses or adenopathy. BOWEL AND PERITONEAL CAVITY: No obvious masses or inflammatory changes. No free fluid. APPENDIX: Not visualized. PELVIS, BLADDER, AND ABDOMINAL WALL:No abnormal masses. No free fluid. Bladder normal. BONES: Nothing acute. Dysplastic right hip. OTHER: No other significant finding. IMPRESSION: 2 mm left ureteral calculus at level of L4-5. Atrophic left kidney with mild hydronephr osis. COMMENT: Quality ID # [id number]: Final reports with documentation of one or more dose reduction techniques (e.g., Automated exposure control, adjustment of the mA and/or kV according to patient size, use of iterative reconstruction technique) TECHNICAL DOCUMENTATION: JOB ID: [id number] 2010 [employer] [facility]- All Rights Reserved Reading location - IP/workstation name: [email or web address]
[2020-06-22] MEDS ORDERED: CEFTRIAXONE INJ 1000 MG VIAL IM ONE (15:30)
[2020-06-22] MEDS ORDERED: LIDOCAINE 1% INJ-PF (10 MG/ML) 30 ML SDV INJ ONE (15:31)
--- NOTE | 2020-06-22 18:24 | EKG REPORT ---
SEVERITY:- BORDERLINE ECG - SINUS RHYTHM ATRIAL PREMATURE COMPLEX CONSIDER ANTERIOR INFARCT BORDERLINE T ABNORMALITIES, ANTERIOR LEADS : Confirmed by: Dejah Schwartz 22-Jun-2020 18:23:51
[2020-06-22 18:30] VITALS: BP 146/90
== END 2020-06-22 18:00 | disposition home or self-care (01) ==
LOC: ER 06:59
DX: N13.6 Pyonephrosis (principal); R10.9 Unspecified abdominal pain; M54.9 Dorsalgia, unspecified; E78.00 Pure hypercholesterolemia, unspecified; I10 Essential (primary) hypertension; Z86.14 Personal history of Methicillin resistant Staphylococcus aureus infection; I25.2 Old myocardial infarction
CPT/HCPCS: 93005; 99285; 96372; 36415; 87086; 82550; 85025; 87088; 80053; 81001; 84484; 87186; 85379; 73502; 74176; 93010; J3490; J0696

== ENCOUNTER 2020-08-25 11:30 | Emergency (ER) | payer MEDICARE, MEDICAID ==
[2020-08-25] MEDS ORDERED: NORMAL SALINE 1000 ML 1,000 ML IV ONE (12:12)
--- NOTE | 2020-08-25 12:15 | ER Document Report ---
ED Medical Screen (RME) - General Chief Complaint: Flank Pain Stated Complaint: FLANK PAIN Time Seen by Provider: 08/25/20 12:06 Primary Care Provider: SABAS TSANG MD [Primary Care Provider] - Follow up as needed Notes: Patient is a 65-year-old female presents to the emergency department with the chief complaint of bilateral back pain, with more pain on the right. Patient has history of a kidney stone that was diagnosed on June 22. She saw her urologist today, who called EMS to have her brought to the emergency department. Patient states that she has been urinating blood for the past week. Exam: Tenderness noted to right low back. I have greeted and performed a rapid initial assessment of this patient. A comprehensive ED assessment and evaluation of the patient, analysis of test results and completion of medical decision making process will be conducted by an additional ED providers. TRAVEL OUTSIDE OF THE [place] IN LAST 30 DAYS: No - Related Data Allergies/Adverse Reactions: fentanyl [From Duragesic] Allergy (Severe, Verified 06/22/20 10:31) Severe rash interferon beta-1b [From Betaseron] Allergy (Severe, Verified 06/22/20 10:31) Seizures morphine [Morphine] Allergy (Severe, Verified 06/22/20 10:31) Swelling, rash, difficulty breathing nalbuphine HCl [From Nubain] Allergy (Severe, Verified 06/22/20 10:31) Swelling, rash, Diff. breathing, Tachycardia quetiapine fumarate [From Seroquel] Allergy (Severe, Verified 06/22/20 10:31) crazy levofloxacin [From Levaquin] Allergy (Intermediate, Verified 06/22/20 10:31) Hives Sulfa (Sulfonamide Antibiotics) Allergy (Intermediate, Verified 06/22/20 10:31) N&V aspirin [Aspirin] Adverse Reaction (Verified 06/22/20 10:31) pt has von willebrands Past Medical History - Past Medical History Cardiac Medical History: Reports: Hx Coronary Artery Disease, Hx Heart Attack - 2007 mild , Hx Hypercholesterolemia, Hx Hypertension Pulmonary Medical History: Reports: Hx Asthma, Hx Bronchitis, Hx COPD, Hx Pneumonia - 2010 x2 Denies: Hx Tuberculosis Neurological Medical History: Reports: Hx Migraine, Hx Seizures. Denies: Hx Cerebrovascular Accident Endocrine Medical History: Reports: Hx Diabetes Mellitus Type 2 Renal/ Medical History: Reports: Hx Kidney Stones. Denies: Hx Peritoneal Dialysis Musculoskeltal Medical History: Reports Hx Arthritis, Reports Hx Multiple Sc lerosis Skin Medical History: Reports Hx MRSA Psychiatric Medical History: Reports: Hx Bipolar Disorder Past Surgical History: Reports: Hx Cholecystectomy, Hx Hysterectomy, Hx Orthopedic Surgery - Bilateral hips; does not have rt hip, left hip repair. Denies: Hx Pacemaker - Immunizations Hx Diphtheria, Pertussis, Tetanus Vaccination: Yes Physical Exam - Vital signs Vitals: Temp Pulse Resp BP Pulse Ox 98.3 F 99 18 146/72 H 99 08/25/20 12:08 08/25/20 12:08 08/25/20 12:08 08/25/20 12:08 08/25/20 12:08 Course - Vital Signs Vital signs: Temp Pulse Resp BP Pulse Ox 98.3 F 99 18 146/72 H 99 08/25/20 12:08 08/25/20 12:08 08/25/20 12:08 08/25/20 12:08 08/25/20 12:08 Doctor's Discharge - Discharge Referrals: SABAS TSANG MD [Primary Care Provider] - Follow up as needed
[2020-08-25 12:51] LABS: ABSOLUTE BASOPHILS # (AUTO) 0.1 10^3/uL (0.0-0.2); ABSOLUTE EOSINOPHILS # (AUTO) 0.5 10^3/uL (0.0-0.6); ABSOLUTE LYMPHOCYTES (AUTO) 2.4 10^3/uL (0.5-4.7); ABSOLUTE MONOCYTES (AUTO) 0.9 10^3/uL (0.1-1.4); ABSOLUTE NEUT (AUTO) 7.3 10^3/uL (1.7-8.2); BASOPHILS % (AUTO) 0.5 % (0-2); EOSINOPHILS % (AUTO) 4.6 % (0-6); HEMATOCRIT 40.1 % (36.0-47.0); HEMOGLOBIN 13.4 g/dL (12.0-15.5); LYMPHOCYTES % (AUTO) 21.1 % (13-45); MEAN CORPUSCULAR HEMOGLOBIN 27.9 pg (27.0-33.4); MEAN CORPUSCULAR HGB CONC 33.3 g/dL (32.0-36.0); MEAN CORPUSCULAR VOLUME 84 fl (80-97); PLATELET COUNT 215 10^3/uL (150-450); RED BLOOD COUNT 4.78 10^6/uL (3.72-5.28); SEGMENTED NEUTROPHILS % (AUTO) 65.8 % (42-78); TOTAL CELLS COUNTED % (AUTO) 100 %; WHITE BLOOD COUNT 11.1 10^3/uL (4.0-10.5)
[2020-08-25 12:52] LABS: APPEARANCE,URINE CLOUDY; BILIRUBIN,URINE NEGATIVE (NEGATIVE); COLOR,URINE YELLOW; GLUCOSE, URINE NEGATIVE (NEGATIVE); KETONES,URINE NEGATIVE (NEGATIVE); LEUKOCYTE ESTERASE,URINE LARGE (NEGATIVE); NITRITE,URINE NEGATIVE (NEGATIVE); PROTEIN,URINE 100 mg/dL (NEGATIVE); URINE SPECIFIC GRAVITY 1.019; UROBILINOGEN,URINE NEGATIVE mg/dL (<2.0)
--- NOTE | 2020-08-25 13:21 | RADIOLOGY REPORT (SQ) ---
EXAM DESCRIPTION: CT ABD/PELVIS NO ORAL OR IV IMAGES COMPLETED DATE/TIME: 08/25/2020 1:05 pm REASON FOR STUDY: right low back pain; hx of stones COMPARISON: 06/22/2020 TECHNIQUE: CT scan of the abdomen and pelvis performed without intravenous or oral contrast. Images reviewed with lung, soft tissue, and bone windows. Reconstructed coronal and sagittal MPR images revi ewed. All images stored on PACS. All CT scanners at this facility use dose modulation, iterative reconstruction, and/or weight based d osing when appropriate to reduce radiation dose to as low as reasonably achievable (ALARA). [facility]: Dose Right [facility]: CareDose [facility]: Dose Right [facility]: Teradose 4D [facility]: Smart [employer] RADIATION DOSE: CT Rad equipment meets quality standard of care and radiation dose reduction techniq ues were employed. CTDIvol: 7.4 mGy. DLP: 353 mGy-cm.mGy. LIMITATIONS: None. FINDINGS: LOWER CHEST: Scarring or linear atelectasis in the left base stable from prior study. NON-CONTRASTED LIVER, SPLEEN, ADRENALS: Evaluation limited by lack of IV contrast. No identified sign ificant masses. PANCREAS: No masses. No peripancreatic inflammatory changes. GALLBLADDER: Surgically absent. RIGHT KIDNEY AND URETER: No suspicious masses. Assessment limited by lack of IV contrast. No signif icant calcifications. No hydronephrosis or hydroureter. LEFT KIDNEY AND URETER: Small atrophic left kidney. No significant calcifications. No hydronephro sis or hydroureter. AORTA AND RETROPERITONEUM: No aneurysm. No retroperitoneal masses or adenopathy. BOWEL AND PERITONEAL CAVITY: No obvious masses or inflammatory changes. No free fluid. APPENDIX: Normal. PELVIS, BLADDER, AND ABDOMINAL WALL:No abnormal masses. No free fluid. Bladder normal. Small anterio r abdominal wall hernia containing omental fat only. This is unchanged from prior study. BONES: Advanced degenerative changes in the right hip with prior resection of the femoral head. Smal l stable joint effusion. Stable degenerative changes in the lumbar spine. OTHER: No other significant finding. IMPRESSION: Advanced degenerative changes in the right hip with small joint effusion stable from Jun. No acute findings in the abdomen or pelvis. COMMENT: Quality ID # [id number]: Final reports with documentation of one or more dose reduction techniques (e.g., Automated exposure control, adjustment of the mA and/or kV according to patient size, use of iterative reconstruction technique) TECHNICAL DOCUMENTATION: JOB ID: [id number] 2010 [employer] [facility]- All Rights Reserved Reading location - IP/workstation name: [email or web address]
[2020-08-25 13:24] LABS: ALBUMIN 4.3 g/dL (3.5-5.0); ALKALINE PHOSPHATASE 120 U/L (38-126); ANION GAP 9 (5-19); ASPARTATE AMINO TRANSFERASE 18 U/L (14-36); BILIRUBIN,DIRECT 0.2 mg/dL (0.0-0.4); BILIRUBIN,TOTAL 0.4 mg/dL (0.2-1.3); BLOOD UREA NITROGEN 20 mg/dL (7-20); CALCIUM 10.1 mg/dL (8.4-10.2); CARBON DIOXIDE 30 mmol/L (22-30); CHLORIDE 98 mmol/L (98-107); GLUCOSE 221 mg/dL (75-110); POTASSIUM 5.3 mmol/L (3.6-5.0); TOTAL PROTEIN 7.6 g/dL (6.3-8.2)
[2020-08-25] MEDS ORDERED: CEFTRIAXONE 1 GM/D5W RTU 50 ML IV ONE (13:39)
--- NOTE | 2020-08-25 13:44 | ER Document Report ---
ED General - General Chief Complaint: Flank Pain Stated Complaint: FLANK PAIN Time Seen by Provider: 08/25/20 12:06 Primary Care Provider: SABAS TSANG MD [Primary Care Provider] - Follow up as needed Notes: Patient presents with flank pain on the right is been going on for several weeks "I am trying to pass a kidney stone" is not clear to me who diagnosed this. Last couple days she has had hematuria with clots so came to the urology office today showed a picture of her clots and was not evaluated in the office but rather EMS was called and she was brought here. 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 She has he been here several times for pyelonephritis and last several times has grown out E. coli sensitive to Rocephin. TRAVEL OUTSIDE OF THE [place] IN LAST 30 DAYS: No - Related Data Allergies/Adverse Reactions: fentanyl [From Duragesic] Allergy (Severe, Verified 06/22/20 10:31) Severe rash interferon beta-1b [From Betaseron] Allergy (Severe, Verified 06/22/20 10:31) Seizures morphine [Morphine] Allergy (Severe, Verified 06/22/20 10:31) Swelling, rash, difficulty breathing nalbuphine HCl [From Nubain] Allergy (Severe, Verified 06/22/20 10:31) Swelling, rash, Diff. breathing, Tachycardia quetiapine fumarate [From Seroquel] Allergy (Severe, Verified 06/22/20 10:31) crazy levofloxacin [From Levaquin] Allergy (Intermediate, Verified 06/22/20 10:31) Hives Sulfa (Sulfonamide Antibiotics) Allergy (Intermediate, Verified 06/22/20 10:31) N&V aspirin [Aspirin] Adverse Reaction (Verified 06/22/20 10:31) pt has von willebrands Past Medical History - General Information source: Patient - Social History Smoking Status: Never Smoker Family History: Reviewed & Not Pertinent, Malignancy - Dad and brother both from cancer - Past Medical History Cardiac Medical History: Reports: Hx Coronary Artery Disease, Hx Heart Attack - 2007 mild , Hx Hypercholesterolemia, Hx Hypertension Pulmonary Medical History: Reports: Hx Asthma, Hx Bronchitis, Hx COPD, Hx Pneumonia - 2010 x2 Denies: Hx Tuberculosis Neurological Medical History: Reports: Hx Migraine, Hx Seizures. Denies: Hx Cerebrovascular Accident Endocrine Medical History: Reports: Hx Diabetes Mellitus Type 2 Renal/ Medical History: Reports: Hx Kidney Stones. Denies: Hx Peritoneal Dialysis Musculoskeletal Medical History: Reports Hx Arthritis, Reports Hx Multiple Sclerosis Skin Medical History: Reports Hx MRSA Psychiatric Medical History: Reports: Hx Bipolar Disorder Past Surgical History: Reports: Hx Cholecystectomy, Hx Hysterectomy, Hx Orthopedic Surgery - Bilateral hips; does not have rt hip, left hip repair. Denies: Hx Pacemaker - Immunizations Hx Diphtheria, Pertussis, Tetanus Vaccination: Yes Hx Pneumococcal Vaccination: 03/17/13 Review of Systems - Review of Systems Notes: REVIEW OF SYSTEMS GEN: Denies fever, chills, weight loss ENT: Denies sore throat, nasal discharge, ear pain EYES: Denies blurry vision, eye pain, discharge CV: Denies chest pain, palpitations, edema RESP: Denies cough, shortness of breath, wheezing GI: Nausea, positive hematuria MSK: Right-sided back pain SKIN: Denies rash, skin lesions LYMPH: Denies swollen glands/lymph nodes NEURO: Denies headache, focal weakness or numbness, dizziness PSYCH: Denies depression, suicidal or homicidal ideation PHYSICAL EXAMINATION General: No acute distress, well-nourished Head: Atraumatic, normocephalic ENT: Mouth normal, oropharynx moist, no exudates or tonsillar enlargement Eyes: Conjunctiva normal, pupils equal, lids normal Neck: No JVD, supple, no guarding CVS: Normal rate, regular rhythm, no murmurs Resp: No resp distress, equal and normal breath sounds bilaterally GI: Nondistended, soft, no tenderness to palpation, no rebound or guarding Ext: No deformities, no edema, normal range of motion in upper and lower ext Back: No CVA or midline TTP Skin: No rash, warm Lymphatic: No lymphadeopathy noted Neuro: Awake, alert. Face symmetric. GCS 15. Physical Exam - Vital signs Vitals: Temp Pulse Resp BP Pulse Ox 98.3 F 99 18 146/72 H 99 08/25/20 12:08 08/25/20 12:08 08/25/20 12:08 08/25/20 12:08 08/25/20 12:08 Course - Re-evaluation Re-evalutation: 08/25/20 13:44 Patient presents with recurrent pyelonephritis my leukocytosis no tenderness looks well, afebrile with hematuria 08/25/20 13:52 Patient's white count is very mildly elevated but she has [place] no signs of sepsis. High-end normal potassium but very normal creatinine, probably not real. She actually is not in all that much pain and has been going on for several days. Her CT does not show a stone, and has a known atrophic left kidney but the right kidney looks good. She is very hard IV stick, and given that she is been sensitive to third-generation cephalosporins is tolerating p.o. and looks so well I think is very reasonable to treat her with oral meds. I have sent a culture and will start her on cefuroxime at home and she will follow-up with her primary care in a few days. Her hematuria is explained clearly by her infection, or she may have just recently passed a kidney stone. Either way does not look septic and is stable for discharge. I have discussed with the patient there likely diagnosis, aftercare plan, follow-up plans and my usual and customary return precautions. They verbalized understanding of this. - Vital Signs Vital signs: Temp Pulse Resp BP Pulse Ox 98.3 F 99 18 146/72 H 99 08/25/20 12:08 08/25/20 12:08 08/25/20 12:08 08/25/20 12:08 08/25/20 12:08 - Laboratory Result Diagrams: 08/25/20 12:30 08/25/20 12:30 Laboratory results interpreted by me: 08/25/20 08/25/20 08/25/20 12:30 12:30 12:30 WBC 11.1 H RDW 15.0 H Potassium 5.3 H Glucose 221 H Urine Protein 100 H Ur Leukocyte Esterase LARGE H Discharge - Discharge Clinical Impression: Pyelonephritis Condition: Good Disposition: HOME, SELF-CARE Instructions: Pyelonephritis ([facility]) Prescriptions: Cefuroxime Axetil [Ceftin 500 mg Tablet] 1 tab PO BID #20 tablet Referrals: SABAS TSANG MD [Primary Care Provider] - Follow up in 1 week (You will receive a phone call if there is an issue with your urine culture results)
[2020-08-25] MEDS ORDERED: CEFUROXIME 500 MG TABLET PO ONE (13:51)
[2020-08-25] MEDS ORDERED: OXYCODONE-ACETAMINOPHEN 5-325 MG TABLET PO ONE (13:51)
[2020-08-25 15:26] VITALS: BP 177/83
== END 2020-08-25 15:26 | disposition home or self-care (01) ==
LOC: ER 11:30
DX: N12 Tubulo-interstitial nephritis, not specified as acute or chronic (principal); R10.9 Unspecified abdominal pain; R11.0 Nausea; E11.9 Type 2 diabetes mellitus without complications; I10 Essential (primary) hypertension; E78.00 Pure hypercholesterolemia, unspecified; Z87.442 Personal history of urinary calculi
CPT/HCPCS: 99285; 36415; 83690; 85025; 80053; 81001; 74176; A9270 ×2; J3490

== ENCOUNTER 2020-10-12 15:39 | Observation (INO) | payer MEDICARE, MEDICAID ==
[2020-10-12] MEDS ORDERED: ONDANSETRON HCL INJ/PF 4 MG/2 ML SDV IV ONE ×2 (17:32→20:32)
[2020-10-12] MEDS ORDERED: NORMAL SALINE 1000 ML 500 ML IV ONE (17:32)
--- NOTE | 2020-10-12 17:36 | ER Document Report ---
ED Medical Screen (RME) - General Chief Complaint: Nausea/Vomiting Stated Complaint: NAUSEA VOMITING Time Seen by Provider: 10/12/20 17:25 Primary Care Provider: SABAS TSANG MD [Primary Care Provider] - Follow up as needed TRAVEL OUTSIDE OF THE [place] IN LAST 30 DAYS: No - HPI Patient complains to provider of: Nausea, vomiting Notes: 10/12/20 17:35 Patient with complaints of nausea vomiting. States is minimal for the last few days. She also complains of some diarrhea. She is also concerned she may have a bedsore on her buttock area. She denies fevers. No chest pain or shortness of breath. Exam: No distress, nontoxic appearing. Lungs clear throughout. Heart sounds normal. No focal abdominal tenderness on limited triage abdominal exam. Unable to visualize buttocks in triage. An initial examination was made on the patient as part of the triage process, and it was determined a more comprehensive evaluation was necessary. Initial orders were placed and patient was transferred to another provider in the ED who assumed care and finished evaluation and plan. - Related Data Allergies/Adverse Reactions: fentanyl [From Duragesic] Allergy (Severe, Verified 06/22/20 10:31) Severe rash interferon beta-1b [From Betaseron] Allergy (Severe, Verified 06/22/20 10:31) Seizures morphine [Morphine] Allergy (Severe, Verified 06/22/20 10:31) Swelling, rash, difficulty breathing nalbuphine HCl [From Nubain] Allergy (Severe, Verified 06/22/20 10:31) Swelling, rash, Diff. breathing, Tachycardia quetiapine fumarate [From Seroquel] Allergy (Severe, Verified 06/22/20 10:31) crazy levofloxacin [From Levaquin] Allergy (Intermediate, Verified 06/22/20 10:31) Hives Sulfa (Sulfonamide Antibiotics) Allergy (Intermediate, Verified 06/22/20 10:31) N&V aspirin [Aspirin] Adverse Reaction (Verified 06/22/20 10:31) pt has von willebrands Past Medical History - Past Medical History Cardiac Medical History: Reports: Hx Coronary Artery Disease, Hx Heart Attack - 2007 mild , Hx Hypercholesterolemia, Hx Hypertension Pulmonary Medical History: Reports: Hx Asthma, Hx Bronchitis, Hx COPD, Hx Pneumonia - 2010 x2 Denies: Hx Tuberculosis Neurological Medical History: Reports: Hx Migraine, Hx Seizures. Denies: Hx Cerebrovascular Accident Endocrine Medical History: Reports: Hx Diabetes Mellitus Type 2 Renal/ Medical History: Reports: Hx Kidney Stones. Denies: Hx Peritoneal Dialysis Musculoskeltal Medical History: Reports Hx Arthritis, Reports Hx Multiple Sclerosis Skin Medical History: Reports Hx MRSA Psychiatric Medical History: Reports: Hx Bipolar Disorder Past Surgical History: Reports: Hx Cholecystectomy, Hx Hysterectomy, Hx Orthopedic Surgery - Bilateral hips; does not have rt hip, left hip repair. Denies: Hx Pacemaker - Immunizations Hx Diphtheria, Pertussis, Tetanus Vaccination: Yes Physical Exam - Vital signs Vitals: Temp Pulse Resp BP Pulse Ox 97.5 F 73 16 152/83 H 96 10/12/20 15:54 10/12/20 15:54 10/12/20 15:54 10/12/20 15:54 10/12/20 15:54 Course - Vital Signs Vital signs: Temp Pulse Resp BP Pulse Ox 97.5 F 73 16 152/83 H 96 10/12/20 15:54 10/12/20 15:54 10/12/20 15:54 10/12/20 15:54 10/12/20 15:54 Doctor's Discharge - Discharge Referrals: SABAS TSANG MD [Primary Care Provider] - Follow up as needed
[2020-10-12 18:07] LABS: HEMATOCRIT 40.9 % (36.0-47.0); HEMOGLOBIN 13.4 g/dL (12.0-15.5); MEAN CORPUSCULAR HEMOGLOBIN 27.1 pg (27.0-33.4); MEAN CORPUSCULAR HGB CONC 32.7 g/dL (32.0-36.0); MEAN CORPUSCULAR VOLUME 83 fl (80-97); PLATELET COUNT 248 10^3/uL (150-450); RED BLOOD COUNT 4.94 10^6/uL (3.72-5.28); RED CELL DISTRIBUTION WIDTH 15.5 % (11.5-14.0); WHITE BLOOD COUNT 9.9 10^3/uL (4.0-10.5)
[2020-10-12 18:20] LABS: ALBUMIN 3.8 g/dL (3.5-5.0); ALKALINE PHOSPHATASE 168 U/L (38-126); ANION GAP 10 (5-19); ASPARTATE AMINO TRANSFERASE 18 U/L (14-36); BILIRUBIN,DIRECT 0.5 mg/dL (0.0-0.4); BILIRUBIN,TOTAL 0.7 mg/dL (0.2-1.3); BLOOD UREA NITROGEN 19 mg/dL (7-20); CALCIUM 9.5 mg/dL (8.4-10.2); CARBON DIOXIDE 27 mmol/L (22-30); CHLORIDE 96 mmol/L (98-107); POTASSIUM 5.5 mmol/L (3.6-5.0); TOTAL PROTEIN 7.7 g/dL (6.3-8.2)
--- NOTE | 2020-10-12 18:21 | RADIOLOGY REPORT (SQ) ---
EXAM DESCRIPTION: CHEST SINGLE VIEW IMAGES COMPLETED DATE/TIME: 10/12/2020 6:01 pm REASON FOR STUDY: N/V, cough COMPARISON: 08/13/2018 EXAM PARAMETERS: NUMBER OF VIEWS: One view. TECHNIQUE: Single frontal radiographic view of the chest acquired. RADIATION DOSE: NA LIMITATIONS: None. FINDINGS: LUNGS AND PLEURA: No opacities, masses or pneumothorax. No pleural effusion. MEDIASTINUM AND HILAR STRUCTURES: No masses. Contour normal. HEART AND VASCULAR STRUCTURES: Heart normal in size. Normal vasculature. BONES: No acute findings. HARDWARE: None in the chest. OTHER: No other significant finding. IMPRESSION: NO ACUTE RADIOGRAPHIC FINDING IN THE CHEST. TECHNICAL DOCUMENTATION: JOB ID: [id number] 2010 [employer]- All Rights Reserved Reading location - IP/workstation name: [email or web address]
[2020-10-12 18:32] LABS: GLUCOSE 432 mg/dL (75-110)
[2020-10-12 18:33] LABS: ABSOLUTE MONOCYTES # (MANUAL) 0.2 10^3/uL (0.1-1.4); BASOPHILS % (MANUAL) 1 % (0-2); EOSINOPHILS % (MANUAL) 3 % (0-6); LYMPHOCYTES % (MANUAL) 36 % (13-45); MONOCYTES % (MANUAL) 2 % (3-13); SEGMENTED NEUTROPHILS % (MAN) 54 % (42-78); TOTAL CELLS COUNTED 100
[2020-10-12 18:34] LABS: ANISOCYTOSIS SLIGHT; PLATELET COMMENT ADEQUATE; TOXIC VACUOLATION PRESENT
[2020-10-12 18:35] LABS: PLATELET LARGE PRESENT
[2020-10-12] MEDS ORDERED: NORMAL SALINE 1000 ML 1,000 ML IV ONE (20:31)
[2020-10-12] MEDS ORDERED: BUTALB/ACETAMINOPHEN/CAFFEINE 1 TAB EACH PO ONE (20:32)
--- NOTE | 2020-10-12 21:02 | ER Document Report ---
ED GI/ - General Chief Complaint: Nausea/Vomiting Stated Complaint: NAUSEA VOMITING Time Seen by Provider: 10/12/20 17:25 Mode of Arrival: Medic Information source: Patient Notes: 65 -year-old female presented to ED for complaint of nausea vomiting and headache. She states is been nausea and vomiting for couple days but worse today. She states she has had minimal diarrhea. She also has a bedsore to her buttocks. She states she has not had any fevers chest pain or shortness of breath. She is a diabetic type II. Her blood sugar on EMS was 491 on her chemistry it was 432. She had been given fluids on EMS and fluids by pit area. Patient is on nadolol 40 mg 1/2 tablet daily, Glimeperide 2 mg twice daily Flexeril 10 mg 3 times daily as needed, Divalproes 500 mg twice daily, doxazosin [address] 6o mg daily carvedilol 4.5 mg twice daily oxybutynin 10 mg twice daily and she states she takes. Said but I did not see a bottle in her bag. She states she takes the Fioricet for her headaches. I have ordered her fluids, Zofran, and Fioricet at this time I have assessed her bottom which has a 1 cm stage I decubitus on the left buttocks she does have redness to her buttocks and she is incontinent of urine. When I tried to talk with the lady she states she only has one hearing aid which is no good and she randomly makes statements not answering the questions I am asking. Sometimes she answers the questions appropriately I do not know if this is her baseline. Discussed the history and physical with Dr. perdomo, she recommended a CT of the head. When the CT of the head came back as a possible stroke she did recommend a CTA of the head neck. When the CTA came back as possible vertebral artery occlusion we did consult Dr. Rendon stroke neurology at [facility]. She is recommended patient be admitted for stroke management but did not need any intervention vengeance at this time surgically. She did recommend getting MRI of the brain hemoglobin A1c cardio echo with bubble study and MRI. Did consult who came and examined the patient to admit her. He stated when he told her that we will get an MRI of the brain she told him that she could never have an MRI. Constitutional: Negative for fever. HENT: Patient has one hearing aid which is not functioning properly. She states she needs a new hearing aid Eyes: Patient has cataracts and states she has poor vision Cardiovascular: Negative for chest pain. Respiratory: Negative for shortness of breath. Gastrointestinal: Complains of nausea vomiting but no abdominal pain. She is diabetic with a sugar of 432. Genitourinary: Incontinent of urine which is her norm Musculoskeletal: Chronic back pain Skin: States she has a little sore on her bottom from being incontinent of urine Neurological: She has migraines and usually gets Fioricet and it takes care of 10 point ROS negative except as marked above and in HPI. VITAL SIGNS: Within normal limits. GENERAL: Elevated blood sugar nausea and vomiting HEAD: Normal with no signs of head trauma. EYES: Cataracts that need surgery EARS: Patient has very hard of hearing she has one hearing aid that is not working properly. Each statement needs to be made slowly and loud for her to hear NOSE: Normal. THROAT: Oropharynx is normal. NECK: Normal range of motion, no tenderness, supple, no lymphadenopathy, No adenopathy, no JVD. CHEST: Clear breath sounds bilaterally. No wheezes, rales, or rhonchi. CARDIAC: Regular rate and rhythm. S1 and S2, without murmurs, gallops, or rubs. VASCULAR: No Edema. Peripheral pulses normal and equal in all extremities. ABDOMEN: Normal and soft with no tenderness, no masses or pulsatile masses. GASTROINTESTINAL: Bowel sounds normal GENITOURINARY: Incontinent of urine LYMPATHTIC: No lymphadenopathy noted. MUSCULOSKELETAL: Chronic pain management for back pain and weakness. She is able to move all extremities NEUROLOGICAL: Extremely hard of hearing and unable to tell if she is completely oriented or she is just having trouble hearing. No focal sensory or strength deficits. Speech normal. Follows commands appropriately. SKIN: Stage I 1 cm decubitus to the buttocks TRAVEL OUTSIDE OF THE [place] IN LAST 30 DAYS: No - HPI Patient complains to provider of: Vomiting, Other - Increased thirst headache Onset: Other - Present over the last couple days Timing/Duration: Gradual Quality of pain: Achy Severity at maximum: Mild Severity in ED: Mild Pain Level: 2 Vaginal bleeding (Compared to normal period): None Associated symptoms: Nausea, Vomiting, Other - Incontinent of urine headache Exacerbated by: Denies Relieved by: Denies Similar symptoms previously: Yes Recently seen / treated by doctor: No - Related Data Allergies/Adverse Reactions: fentanyl [From Duragesic] Allergy (Severe, Verified 06/22/20 10:31) Severe rash interferon beta-1b [From Betaseron] Allergy (Severe, Verified 06/22/20 10:31) Seizures morphine [Morphine] Allergy (Severe, Verified 06/22/20 10:31) Swelling, rash, difficulty breathing nalbuphine HCl [From Nubain] Allergy (Severe, Verified 06/22/20 10:31) Swelling, rash, Diff. breathing, Tachycardia quetiapine fumarate [From Seroquel] Allergy (Severe, Verified 06/22/20 10:31) crazy levofloxacin [From Levaquin] Allergy (Intermediate, Verified 06/22/20 10:31) Hives Sulfa (Sulfonamide Antibiotics) Allergy (Intermediate, Verified 06/22/20 10:31) N&V aspirin [Aspirin] Adverse Reaction (Verified 06/22/20 10:31) pt has von willebrands Past Medical History - General Information source: Patient Cannot obtain history due to: Other - Hard of hearing - Social History Smoking Status: Never Smoker Frequency of alcohol use: None Drug Abuse: None Lives with: Alone Family History: Reviewed & Not Pertinent, Malignancy - Dad and brother both from cancer Patient has suicidal ideation: No Patient has homicidal ideation: No - Past Medical History Cardiac Medical History: Reports: Hx Coronary Artery Disease, Hx Heart Attack - 2007 mild , Hx Hypercholesterolemia, Hx Hypertension, Other - Von Willebrand's Pulmonary Medical History: Reports: Hx Asthma, Hx Bronchitis, Hx COPD, Hx Pne [facility] - 2010 x2 EENT Medical History: Reports: None Neurological Medical History: Reports: Hx Migraine, Hx Seizures Endocrine Medical History: Reports: Hx Diabetes Mellitus Type 2 Renal/ Medical History: Reports: Hx Kidney Stones Malignancy Medical History: Reports: None GI Medical History: Reports: None Musculoskeletal Medical History: Reports Hx Arthritis, Reports Hx Multiple Sclerosis Skin Medical History: Reports Hx MRSA Psychiatric Medical History: Reports: Hx Bipolar Disorder Traumatic Medical History: Reports: Hx Fractures Infectious Medical History: Reports: None Past Surgical History: Reports: Hx Cholecystectomy, Hx Hysterectomy, Hx Orthopedic Surgery - Bilateral hips; does not have rt hip, left hip repair - Immunizations Hx Diphtheria, Pertussis, Tetanus Vaccination: Yes Hx Pneumococcal Vaccination: 03/17/13 Physical Exam - Vital signs Vitals: Temp Pulse Resp BP Pulse Ox 97.5 F 73 16 152/83 H 96 10/12/20 15:54 10/12/20 15:54 10/12/20 15:54 10/12/20 15:54 10/12/20 15:54 Course - Vital Signs Vital signs: Temp Pulse Resp BP Pulse Ox 97.7 F 68 14 135/73 H 100 10/13/20 05:55 10/12/20 20:01 10/13/20 08:01 10/13/20 08:00 10/13/20 08:01 - Laboratory Results Result Diagrams: 10/13/20 05:59 10/13/20 05:59 Laboratory Results Interpreted: 10/12/20 10/12/20 10/12/20 17:46 17:46 22:10 RDW 15.5 H Monocytes % (Manual) 2 L Sodium 132.9 L Potassium 5.5 H Chloride 96 L Glucose 432 H* POC Glucose Direct Bilirubin 0.5 H AST Alkaline Phosphatase 168 H Total Protein Albumin Urine Protein 100 H Urine Glucose (UA) >=500 H Urine Ketones 20 H Urine Blood MODERATE H Ur Leukocyte Esterase LARGE H 10/12/20 10/13/20 10/13/20 22:41 00:24 00:24 RDW Monocytes % (Manual) Sodium 136.4 L Potassium Chloride Glucose 307 H POC Glucose 417 H* 306 H Direct Bilirubin AST 13 L Alkaline Phosphatase Total Protein 6.2 L Albumin 2.9 L Urine Protein Urine Glucose (UA) Urine Ketones Urine Blood Ur Leukocyte Esterase Critical Laboratory Results Reviewed: No Critical Results - Radiology Results Critical Radiology Results Reviewed: Yes Attending or Supervising Physician who Reviewed Radiology: ADIEL PERDOMO Discharge - Discharge Clinical Impression: CVA (cerebral vascular accident) Qualifiers: CVA mechanism: unspecified Qualified Code(s): I63.9 - Cerebral infarction, unspecified Uncontrolled type 2 diabetes mellitus Qualifiers: Glycemic state: with hyperglycemia Qualified Code(s): E11.65 - Type 2 diabetes mellitus with hyperglycemia Disposition: ADMITTED INPATIENT Admitting Provider: Olman (Hospitalist) Unit Admitted: Telemetry
[2020-10-12] MEDS ORDERED: INSULIN REG, HUMAN 100 UNIT/ML 3 ML VIAL (PYX) SUBCUT ONE (21:05)
--- NOTE | 2020-10-12 22:06 | RADIOLOGY REPORT (SQ) ---
EXAM DESCRIPTION: Site: CT HEAD WITHOUT RP: CT HEAD WITHOUT IV CONTRAST CLINICAL HISTORY: 65 years Female; headache ; TECHNIQUE: Noncontrast CT head. All CT scans at this facility use dose modulation, iterative reconstruction, and/or weight based dosing when appropriate to reduce radiation dose to as low as reasonably achievable. COMPARISON: 03/04/2018 FINDINGS: Brain: There is a 3.4 cm area of cortical and subcortical hypodensity in the inferior medial left occipital lobe, new since prior exam. No significant regional mass effect. No hemorrhage. An area of left parietal occipital encephalomalacia is similar to prior exam. There is volume loss along the medial left temporal lobe, new since prior exam. Old lacunar infarct in the left caudate head is new since prior study. Sinuses: Visualized portions of paranasal sinuses and mastoids are clear. Calvarium: No acute calvarial fractures or focal lesion. IMPRESSION: 1. No acute hemorrhage 2. Inferior left occipital lobe hypodensity, suspicious for acute versus subacute infarct. Please correlate with current clinical symptoms. 3. Encephalomalacia along the medial left temporal lobe and in the left parietal lobe, consistent with old infarcts 4. The above lesions suggest a left [employer] or vertebral/basilar stenosis. CTA head and neck would provide a better evaluation. 5. Old left caudate head lacunar infarct
[2020-10-12 22:36] LABS: APPEARANCE,URINE CLOUDY; BILIRUBIN,URINE NEGATIVE (NEGATIVE); COLOR,URINE YELLOW; GLUCOSE, URINE >=500 mg/dL (NEGATIVE); KETONES,URINE 20 mg/dL (NEGATIVE); LEUKOCYTE ESTERASE,URINE LARGE (NEGATIVE); NITRITE,URINE NEGATIVE (NEGATIVE); PROTEIN,URINE 100 mg/dL (NEGATIVE); URINE SPECIFIC GRAVITY 1.026; UROBILINOGEN,URINE NEGATIVE mg/dL (<2.0)
[2020-10-12 23:09] LABS: VENOUS BLOOD BASE EXCESS 1.2 mmol/L; VENOUS BLOOD HCO3 27.9 mmol/L (20-32); VENOUS BLOOD PCO2 52.8 mmHg (35-63); VENOUS BLOOD PH 7.34 (7.30-7.42)
--- NOTE | 2020-10-12 23:42 | EKG REPORT ---
SEVERITY:- ABNORMAL ECG - SINUS RHYTHM CONSIDER LEFT VENTRICULAR HYPERTROPHY : Confirmed by: Dejah Schwartz 12-Oct-2020 23:41:53
[2020-10-12] MEDS ORDERED: CEFTRIAXONE 1 GM/D5W RTU 1 GM/50 ML RTUPB IV ONE (23:52)
[2020-10-13 02:19] LABS: ALBUMIN 2.9 g/dL (3.5-5.0); ALKALINE PHOSPHATASE 122 U/L (38-126); ANION GAP 7 (5-19); ASPARTATE AMINO TRANSFERASE 13 U/L (14-36); BILIRUBIN,DIRECT 0.4 mg/dL (0.0-0.4); BILIRUBIN,TOTAL 0.6 mg/dL (0.2-1.3); BLOOD UREA NITROGEN 19 mg/dL (7-20); CALCIUM 8.5 mg/dL (8.4-10.2); CARBON DIOXIDE 28 mmol/L (22-30); CHLORIDE 101 mmol/L (98-107); GLUCOSE 307 mg/dL (75-110); TOTAL PROTEIN 6.2 g/dL (6.3-8.2)
[2020-10-13 02:34] LABS: POTASSIUM 4.5 mmol/L (3.6-5.0)
--- NOTE | 2020-10-13 03:37 | RADIOLOGY REPORT (SQ) ---
EXAM: 1. CT neck angiography without then with intravenous contrast. 2. CT head angiography without then with intravenous contrast. CLINICAL DATA: 65 years Female changes on ct head ams, acute versus subacute left occipital lobe infarct. Nausea and vomiting and increased blood glucose. TECHNICAL DATA: Following dynamic intravenous nonionic contrast infusion, multiple axial helical CT images with multiplanar reconstructions were obtained through the head and neck. Coronal and sagittal MIP images were performed. The CT study is performed according to ALARA (as low as reasonably achievable) or ALARA/IMAGE GENTLY, with automatic adjustment of mA and/or kV according to patient size. Performed on: 10/13/2020 at 2:13 AM COMPARISONS: Head CT performed on 10/12/2020 at 9:[address] performed on 03/04/2018. Comparison is also made with a chest CT performed on 01/17/2012. FINDINGS: CTA NECK: AORTA: The aortic arch is well imaged and demonstrates conventional branching. The origins of the left subclavian artery, left common carotid artery and innominate artery are patent. VERTEBRAL ARTERIES: The LEFT vertebral artery is normal in caliber and contour without evidence of dissection or significant stenosis. The RIGHT vertebral artery is patent at its origin but appears occluded at the level of C7. The right vertebral artery is occluded throughout its course. CAROTID ARTERIES: The LEFT common carotid artery is unremarkable. There is no evidence of stenosis, dissection or occlusion The carotid bulb demonstrates no significant plaque. The LEFT internal carotid artery is normal in caliber and contour without evidence of significant stenosis, dissection or occlusion. The LEFT external carotid artery is unremarkable. The RIGHT common carotid artery is unremarkable. There is no evidence of stenosis, dissection or occlusion. The carotid bulb demonstrates minimal calcified atherosclerotic plaque. T the RIGHT internal carotid artery is unremarkable. There is no evidence of stenosis, dissection or occlusion. The RIGHT external carotid artery is unremarkable. CTA HEAD: LEFT: INTERNAL CAROTID ARTERY: The distal internal carotid artery is unremarkable. ANTERIOR CEREBRAL ARTERY:The A1 segment is slightly hypoplastic. The A2 segment is grossly normal in caliber and contour. The region of the anterior communicating artery is unremarkable. MIDDLE CEREBRAL ARTERY: The M1 segment is patent but is not well visualized on this examination. The M2 branches are patent but are not well demonstrated on this examination. POSTERIOR CEREBRAL ARTERY:The P1 segment appears patent proximally but is difficult to follow on this examination possibly due to its small caliber. Occlusion of the left P2 segment cannot be entirely excluded on this examination. VERTEBRAL ARTERY: The intradural left vertebral artery is grossly normal in caliber and contour. RIGHT: INTERNAL CAROTID ARTERY: The distal internal carotid artery is unremarkable. ANTERIOR CEREBRAL ARTERY: The A1 segment is normal in caliber and contour. The A2 segment is grossly normal in caliber and contour MIDDLE CEREBRAL ARTERY:The M1 segment is patent and is grossly normal in caliber and contour. The M2 branches appear patent but are difficult to assess on this examination. POSTERIOR CEREBRAL ARTERY: The P1 segment is hypoplastic. There appears to be a origin of the right posterior cerebral artery. The P2 segment is patent but is not well visualized on this examination. VERTEBRAL ARTERY: The intradural right vertebral artery is not definitely confirmed on this examination. There may be partial reconstitution of the distal segment of the right vertebral artery at the level of C1-C2. BASILAR ARTERY: The basilar artery is normal in caliber and contour. DURAL VENOUS SINUSES: The dural venous sinuses are grossly patent. NON-ANGIOGRAPHIC FINDINGS: There is a 5 mm noncalcified nodule in the right upper lobe (series 4, image 56). There is a 6 mm pleural parenchymal nodule in the posterior left upper lobe (series 4, image 83). The thyroid gland is grossly unremarkable. The visualized cervical and thoracic vertebrae are grossly within normal limits. The paranasal sinuses are clear. The mastoid air cells and middle ear cavities are clear. The orbital contents are unremarkable. There are no focal pathologic areas of enhancement in the visualized brain parenchyma. IMPRESSION: CTA NECK: 1. Occlusion of the right vertebral artery just beyond its origin. There may be partial reconstitution of the right vertebral artery at the level of C1-C2. 2. Overall, somewhat limited CT angiography study possibly due to bolus timing versus anatomically small vessels. 3. Otherwise, normal CTA of the neck without evidence of a hemodynamically significant stenosis as per the NASCET criteria. 4. 5 mm noncalcified nodule in the right upper lobe and 6 mm pleural parenchymal nodule in the posterior left upper lobe. These appear new when compared to the prior CT chest performed on 01/17/2012. The patient may benefit from a follow-up dedicated unenhanced chest CT to confirm if other nodules are present. CTA HEAD: 1. Suboptimal evaluation of the intracranial arteries either due to their small caliber or suboptimal bolus timing. 2. origin of the right posterior cerebral artery. The P2 segments are not well visualized on this examination. 3. Hypoplastic left A1 segment. 4. Nonvisualization of the intradural right vertebral artery as described above. These critical findings were discussed with Dr. Mccord on 10/13/2020 at 2:17 AM central time
[2020-10-13] MEDS ORDERED: ONDANSETRON HCL INJ/PF 4 MG/2 ML SDV IV PRN (05:55)
[2020-10-13] MEDS ORDERED: ONDANSETRON 4 MG TAB.RAPDIS PO PRN (05:55)
[2020-10-13] MEDS ORDERED: (PENDING PHARMACY ID) (Oxybutynin Chloride [Oxybutynin Chloride Er] 10 MG Tab.Er.24) PO PRN (05:59)
[2020-10-13 06:14] LABS: HEMATOCRIT 36.7 % (36.0-47.0); HEMOGLOBIN 12.3 g/dL (12.0-15.5); MEAN CORPUSCULAR HEMOGLOBIN 27.2 pg (27.0-33.4); MEAN CORPUSCULAR HGB CONC 33.5 g/dL (32.0-36.0); MEAN CORPUSCULAR VOLUME 81 fl (80-97); PLATELET COUNT 249 10^3/uL (150-450); RED BLOOD COUNT 4.53 10^6/uL (3.72-5.28); RED CELL DISTRIBUTION WIDTH 15.3 % (11.5-14.0); WHITE BLOOD COUNT 8.6 10^3/uL (4.0-10.5)
[2020-10-13 06:16] LABS: INTERNATIONAL RATION (INR) 0.98; PROTHROMBIN TIME 13.2 SEC (11.4-15.4)
--- NOTE | 2020-10-13 06:22 | PDOC H&P ---
History of Present Illness Admission Date/PCP: 10/13/20 05:26 SABAS TSANG MD History of Present Illness: MODESTA HIGUERA is a 65 year old female with past medical history significant for multiple sclerosis, seizure disorder, HTN, HLD, T2DM, history of SD, von Willebrand's disease who presents to the ED with a 2-day history of headache/nausea/vomiting/diarrhea/abdominal pain. Patient underwent CT head without contrast that showed areas suspicious for acute CVA. Patient also had CTA of head and neck which showed a right vertebral artery occlusion although radiologist noted study quality was very poor due to contrast timing and very small vasculature and patient. Neurology was consulted by ED and they stated there is no indication for any intervention or transfer and the patient should be admitted here for echocardiogram, carotid PVL, brain MRI. Patient cannot be given aspirin due to von Willebrand's disease and history of severe bleeding. Patient has not had any focal deficits since admission however she states that she did have right arm weakness 4 days ago but this resolved. She is unclear if this is due to her multiple sclerosis flaring or an unrelated problem. Also of note, her blood sugar was quite elevated up to 432. Patient only takes glimepiride for this at home. UA clearly infected though urine was not sent for culture in ED. This has been ordered now. Patient has no focal deficits on exam. Patient is extremely hard of hearing and very tangential in her speech, poor historian overall. Patient adamantly refuses MRI brain due to concerns of hardware in her left hip that was placed approximately 8 years ago. She became tearful when asked about getting an MRI and did not wish to discuss it further. Past Medical History Cardiac Medical History: Reports: Coronary Artery Disease, Myocardial Infarction - 2007 mild , Hyperlipidema, Hypertension, Other - Von Willebrand's Pulmonary Medical History: Reports: Asthma, Bronchitis, Chronic Obstructive Pulmonary Disease (COPD), Pneumonia - 2010 x2 Denies: Tuberculosis EENT Medical History: Reports: None Neurological Medical History: Reports: Migraine, Seizures Endocrine Medical History: Reports: Diabetes Mellitus Type 2 Malignancy Medical History: Reports: None GI Medical History: Reports: None Musculoskeltal Medical History: Reports: Arthritis Psychiatric Medical History: Reports: Bipolar Disorder Hematology: Denies: Anemia Infectious Medical History: Reports: None Past Surgical History Past Surgical History: Reports: Cholecystectomy, Hysterectomy, Orthopedic Surgery - Bilateral hips; does not have rt hip, left hip repair Denies: Pacemaker Social History Information Source: Patient, Emergency Med Personnel Lives with: Alone Smoking Status: Never Smoker Frequency of Alcohol Use: None Hx Recreational Drug Use: No Drugs: None Hx Prescription Drug Abuse: No - Advance Directive Resuscitation Status: Full Code Surrogate healthcare decision maker:: Admitting diagnosis: Suspected acute CVA All aspects of code status discussed with patient/POA including cardioversion, chest compressions, and intubation and the patient/POA indicated they wish to be full code MPOA is designated as: SonBernabe Time spent: Greater than 16 minutes Family History Family History: Reviewed & Not Pertinent, Malignancy - Dad and brother both from cancer Parental Family History Reviewed: Yes Children Family History Reviewed: Yes Sibling(s) Family History Reviewed.: Yes Medication/Allergy Home Medications: Carvedilol [Coreg 12.5 mg Tablet] 12.5 mg PO Q12 10/13/20 Cyclobenzaprine HCl [Flexeril 10 mg Tablet] 10 mg PO TIDP PRN 10/13/20 Divalproex Sodium 500 mg PO BID 10/13/20 Duloxetine HCl 60 mg PO DAILY 10/13/20 Glimepiride [Amaryl 4 mg Tablet] 4 mg PO BID 10/13/20 Hydroxyzine Pamoate [Vistaril] 25 mg PO QID 10/13/20 Nadolol 20 mg PO DAILY 10/13/20 Oxybutynin Chloride [Oxybutynin Chloride ER] 10 mg PO BID PRN 10/13/20 Allergies/Adverse Reactions: fentanyl [From Duragesic] Allergy (Severe, Verified 06/22/20 10:31) Severe rash interferon beta-1b [From Betaseron] Allergy (Severe, Verified 06/22/20 10:31) Seizures morphine [Morphine] Allergy (Severe, Verified 06/22/20 10:31) Swelling, rash, difficulty breathing nalbuphine HCl [From Nubain] Allergy (Severe, Verified 06/22/20 10:31) Swelling, rash, Diff. breathing, Tachycardia quetiapine fumarate [From Seroquel] Allergy (Severe, Verified 06/22/20 10:31) crazy levofloxacin [From Levaquin] Allergy (Intermediate, Verified 06/22/20 10:31) Hives Sulfa (Sulfonamide Antibiotics) Allergy (Intermediate, Verified 06/22/20 10:31) N&V aspirin [Aspirin] Adverse Reaction (Verified 06/22/20 10:31) pt has von willebrands Review of Systems All systems: reviewed and no additional remarkable complaints except as stated - Per HPI otherwise negative Physical Exam Vital Signs: Temp Pulse Resp BP Pulse Ox 97.5 F 68 13 124/61 98 10/13/20 00:39 10/12/20 20:01 10/13/20 03:01 10/13/20 03:01 10/13/20 03:01 Intake & Output 10/11/20 10/12/20 10/13/20 06:59 06:59 06:59 Intake Total 1050 Balance 1050 Weight 64.9 kg Exam: General appearance: PRESENT: no acute distress, well-developed, well-nourished, chronically ill-appearing white female, extremely hard of hearing Head exam: PRESENT: atraumatic, normocephalic Eye exam: PRESENT: conjunctiva pink. ABSENT: scleral icterus Mouth exam: PRESENT: moist Respiratory exam: PRESENT: clear to auscultation carlos manuel. ABSENT: rales, rhonchi, wheezes Cardiovascular exam: PRESENT: RRR. ABSENT: diastolic murmur, rubs, systolic murmur GI/Abdominal exam: PRESENT: normal bowel sounds, soft. ABSENT: distended, guarding, mass, organolmegaly, rebound, tenderness Neurological exam: PRESENT: alert, awake, oriented to person, oriented to place, oriented to time, oriented to situation; cranial nerves II through XII grossly intact, bilateral upper extremities strength 5/5 equal bilaterally in flexion extension, left lower extremity strength 5/5, right lower extremity with chronic flaccid paralysis above the ankle unchanged per patient Psychiatric exam: PRESENT: appropriate affect, normal mood Skin exam: PRESENT: dry, intact, warm Results Laboratory Results: 10/12/20 17:46 10/13/20 00:24 10/12/20 10/12/20 10/12/20 17:46 17:46 22:10 WBC 9.9 RBC 4.94 Hgb 13.4 Hct 40.9 MCV 83 MCH 27.1 MCHC 32.7 RDW 15.5 H Plt Count 248 Seg Neutrophils % Not Reportable VBG pH VBG pCO2 VBG HCO3 VBG Base Excess Sodium 132.9 L Potassium 5.5 H Chloride 96 L Carbon Dioxide 27 Anion Gap 10 BUN 19 Creatinine 0.56 Est GFR ( Amer) > 60 Glucose 432 H* Calcium 9.5 Magnesium 2.0 Total Bilirubin 0.7 AST 18 Alkaline Phosphatase 168 H Total Protein 7.7 Albumin 3.8 Lipase 25.1 Urine Color YELLOW Urine Appearance CLOUDY Urine pH 6.0 Ur Specific [place] 1.026 Urine Protein 100 H Urine Glucose (UA) >=500 H Urine Ketones 20 H Urine Blood MODERATE H Urine Nitrite NEGATIVE Ur Leukocyte Esterase LARGE H Urine WBC (Auto) >182 Urine RBC (Auto) 44 10/12/20 10/13/20 22:40 00:24 WBC RBC Hgb Hct MCV MCH MCHC RDW Plt Count Seg Neutrophils % VBG pH 7.34 VBG pCO2 52.8 VBG HCO3 27.9 VBG Base Excess 1.2 Sodium 136.4 L Potassium 4.5 D Chloride 101 Carbon Dioxide 28 Anion Gap 7 BUN 19 Creatinine 0.57 Est GFR ( Amer) > 60 Glucose 307 H Calcium 8.5 Magnesium Total Bilirubin 0.6 AST 13 L Alkaline Phosphatase 122 Total Protein 6.2 L Albumin 2.9 L Lipase Urine Color Urine Appearance Urine pH Ur Specific [place] Urine Protein Urine Glucose (UA) Urine Ketones Urine Blood Urine Nitrite Ur Leukocyte Esterase Urine WBC (Auto) Urine RBC (Auto) 10/12/20 17:46 Troponin I < 0.012 Impressions: Chest X-Ray 10/12/20 17:32 IMPRESSION: NO ACUTE RADIOGRAPHIC FINDING IN THE CHEST. Head CT 10/12/20 21:08 IMPRESSION: 1. No acute hemorrhage 2. Inferior left occipital lobe hypodensity, suspicious for acute versus subacute infarct. Please correlate with current clinical symptoms. 3. Encephalomalacia along the medial left temporal lobe and in the left parietal lobe, consistent with old infarcts 4. The above lesions suggest a left WHEEL FILLER or vertebral/basilar stenosis. CTA head and neck would provide a better evaluation. 5. Old left caudate head lacunar infarct Head CTA 10/13/20 01:25 IMPRESSION: CTA NECK: 1. Occlusion of the right vertebral artery just beyond its origin. There may be partial reconstitution of the right vertebral artery at the level of C1-C2. 2. Overall, somewhat limited CT angiography study possibly due to bolus timing versus anatomically small vessels. 3. Otherwise, normal CTA of the neck without evidence of a hemodynamically significant stenosis as per the NASCET criteria. 4. 5 mm noncalcified nodule in the right upper lobe and 6 mm pleural parenchymal nodule in the posterior left upper lobe. These appear new when compared to the prior CT chest performed on 01/17/2012. The patient may benefit from a follow-up dedicated unenhanced chest CT to confirm if other nodules are present. CTA HEAD: 1. Suboptimal evaluation of the intracranial arteries either due to their small caliber or suboptimal bolus timing. 2. origin of the right posterior cerebral artery. The P2 segments are not well visualized on this examination. 3. Hypoplastic left A1 segment. 4. Nonvisualization of the intradural right vertebral artery as described above. These critical findings were discussed with Dr. Mccord on 10/13/2020 at 2:17 AM central time Neck CTA 10/13/20 01:25 IMPRESSION: CTA NECK: 1. Occlusion of the right vertebral artery just beyond its origin. There may be partial reconstitution of the right vertebral artery at the level of C1-C2. 2. Overall, somewhat limited CT angiography study possibly due to bolus timing versus anatomically small vessels. 3. Otherwise, normal CTA of the neck without evidence of a hemodynamically significant stenosis as per the NASCET criteria. 4. 5 mm noncalcified nodule in the right upper lobe and 6 mm pleural parenchymal nodule in the posterior left upper lobe. These appear new when compared to the prior CT chest performed on 01/17/2012. The patient may benefit from a follow-up dedicated unenhanced chest CT to confirm if other nodules are present. CTA HEAD: 1. Suboptimal evaluation of the intracranial arteries either due to their small caliber or suboptimal bolus timing. 2. origin of the right posterior cerebral artery. The P2 segments are not well visualized on this examination. 3. Hypoplastic left A1 segment. 4. Nonvisualization of the intradural right vertebral artery as described above. These critical findings were discussed with Dr. Mccord on 10/13/2020 at 2:17 AM central time Assessment and Plan - Diagnosis (1) Suspected cerebrovascular accident (CVA) Is this a current diagnosis for this admission?: Yes Plan: -Admitted for CVA rule out -NIHSS on Admit: 0 -tPA not given -ASA contraindicated in von Willebrand's disease, Statin -Lipid Panel -Carotid PVL -TTE -CT Head inferior left occipital lobe hypodensity suspicious for acute versus subacute infarct -MRI Brain adamantly refused by patient due to her concerns about left leg hardware -Permissive HTN goal < 220/120 for 48hrs post-sx's onset or until CVA ruled out Neurology consulted by ED: No indication for transfer or intervention (2) Nausea & vomiting Qualifiers: Vomiting type: unspecified Vomiting Intractability: non-intractable Qualified Code(s): R11.2 - Nausea with vomiting, unspecified Is this a current diagnosis for this admission?: Yes Plan: Possibly due to UTI versus migraine headache Antiemetics Resolved (3) Urinary tract infection Qualifiers: Urinary tract infection type: site unspecified Hematuria presence: with hem aturia Qualified Code(s): N39.0 - Urinary tract infection, site not specified; R31.9 - Hematuria, unspecified Is this a current diagnosis for this admission?: Yes Plan: UA infected Urine culture sent Ceftriaxone (4) Vertebral artery occlusion Is this a current diagnosis for this admission?: Yes Plan: Right vertebral artery occlusion seen on CTA head/neck, poor contrast timing and small vessels complicated read of study per radiologist Unclear if acute or chronic, clinically no evidence of infarct related deficits from this occlusion (5) HTN (hypertension) Is this a current diagnosis for this admission?: Yes Plan: Controlled, home medications (6) HLD (hyperlipidemia) Is this a current diagnosis for this admission?: Yes Plan: Statin (7) Multiple sclerosis Is this a current diagnosis for this admission?: Yes Plan: Not currently in a flare per patient Previously followed by outpatient neurology Recently discharged from her PCP office due to being "too sick to care for" according to patient (8) T2DM (type 2 diabetes mellitus) Qualifiers: Diabetes mellitus intermodal dispatcher insulin use: without intermodal dispatcher use Diabetes mellitus complication status: with hyperglycemia Qualified Code(s): E11.65 - Type 2 diabetes mellitus with hyperglycemia Is this a current diagnosis for this admission?: Yes Plan: Blood sugar 432 on admission Continue glimepiride Likely will need long-acting insulin long-term A1c Accu-Chek, sliding scale insulin (9) History of SD (myocardial infarction) Is this a current diagnosis for this admission?: Yes Plan: Occurred many years prior to admission Denies stents or CABG Follows with Dr. Cartwright (10) Von Willebrands disease Is this a current diagnosis for this admission?: Yes Plan: Unable to get anticoagulants or antiplatelet drugs due to high bleeding risk and history of severe bleeding (11) Seizure disorder Is this a current diagnosis for this admission?: Yes Plan: Home medications continued - Time Time Spent with patient: 35 or more minutes Medications reviewed and adjusted accordingly: Yes Anticipated Discharge Disposition: Home, Self Care Anticipated Discharge Timeframe: within 48 hours - Inpatient Certification Based on my medical assessment, after consideration of the patient's comorbidities, presenting symptoms, or acuity I expect that the services needed warrant INPATIENT care.: Yes I certify that my determination is in accordance with my understanding of Medicare's requirements for reasonable and necessary INPATIENT services [42 CFR 412.3e].: Yes Medical Necessity: Significant Comorbidiites Make Outpatient Treatment Too Risky, Need Close Monitoring Due to Risk of Patient Decompensation, Need for Neurological Checks, Risk of Complication if Not Cared For in Hospital, Risk of Diagnosis Which Will Require Inpatient Eval/Care/Monitoring
[2020-10-13 06:31] LABS: ANION GAP 8 (5-19); BLOOD UREA NITROGEN 16 mg/dL (7-20); CALCIUM 8.9 mg/dL (8.4-10.2); CARBON DIOXIDE 26 mmol/L (22-30); CHLORIDE 100 mmol/L (98-107); CHOLESTEROL 206.49 mg/dL (0-200); GLUCOSE 182 mg/dL (75-110); POTASSIUM 4.2 mmol/L (3.6-5.0); TRIGLYCERIDES 392 mg/dL (<150)
[2020-10-13 06:35] LABS: ABSOLUTE LYMPHOCYTES# (MANUAL) 1.5 10^3/uL (0.5-4.7); ABSOLUTE MONOCYTES # (MANUAL) 0.6 10^3/uL (0.1-1.4); BASOPHILS % (MANUAL) 0 % (0-2); EOSINOPHILS % (MANUAL) 2 % (0-6); LYMPHOCYTES % (MANUAL) 18 % (13-45); MONOCYTES % (MANUAL) 7 % (3-13); SEGMENTED NEUTROPHILS % (MAN) 73 % (42-78); TOTAL CELLS COUNTED 100
[2020-10-13 06:40] LABS: ANISOCYTOSIS SLIGHT; PLATELET COMMENT ADEQUATE
[2020-10-13 06:41] LABS: DIRECT LDL 96 mg/dL (<100)
[2020-10-13 06:49] LABS: VLDL CHOLESTEROL 78.4 mg/dL (10-31)
[2020-10-13] MEDS: INSULIN LISPRO 100 UNIT/ML 3 ML VIAL SUBCUT SCH ×4 (08:24→22:15)
[2020-10-13] MEDS ORDERED: DIVALPROEX SODIUM 500 MG PO SCH (10:00)
[2020-10-13] MEDS ORDERED: (PENDING PHARMACY ID) (Duloxetine Hcl [Duloxetine Hcl] 60 MG Capsule.Dr) PO SCH (10:00)
[2020-10-13] MEDS: GLIMEPIRIDE 4 MG TABLET PO SCH ×2 (10:38→17:00)
[2020-10-13] MEDS: DOCUSATE SODIUM 100 MG CAPSULE PO SCH ×2 (10:38→10:43)
[2020-10-13] MEDS: DIVALPROEX SODIUM 250 MG TABLET.DR PO SCH ×2 (10:38→17:00)
[2020-10-13] MEDS: CARVEDILOL 12.5 MG TABLET PO SCH ×2 (10:39→22:13)
[2020-10-13] MEDS: HYDROXYZINE PAMOATE 25 MG CAPSULE PO SCH ×4 (10:39→22:14)
[2020-10-13] MEDS: DULOXETINE HCL 30 MG CAPSULE.DR PO SCH (10:39)
[2020-10-13] MEDS ORDERED: GLUCAGON,HUMAN RECOMB 1 MG INJ IM PRN (18:42)
[2020-10-13] MEDS ORDERED: DEXTROSE 50%-WATER 25 GM/50 ML DISP.SYRIN IV PRN ×2 (18:42)
[2020-10-13] MEDS ORDERED: DEXTROSE 40% GEL 15 GM TUBE PO PRN ×2 (18:42)
--- NOTE | 2020-10-13 18:44 | Progress Note ---
Provider Note Provider Note: Provider sen on afternoon rounds. She is resting upright in chair. She is sleeping when I enter the room but awakes easily. She is hard of hearing, but communicates well. She confirms recent hx HOLLOWAY/nausea/vomiting/diarrhea/abd pain but denies since admission. Does c/o headache consistent with chronic HAs. Requests Fioricet which she takes at home for chronic migraines. She does note pain in left hip/buttock which she relates to the combination of a "bed-sore" and a recent fall x1 week ago which she landed on the left hip. Denies head trauma or LOC. States dog ran under her feet and made her unsteady. She does have full ROM and per PT note was able to ambulate without pain. Her RLE is notably shorter than LLE, which she relates to a previous surgery. She denies weakness, change in vision, change in speech, facial droop, numbness/tingling. Again discussed imaging completed thus far including: unremarkable CXR, head CT suspicious for acute vs subacute infarct; several old infarcts, head/neck CTA occlusion right vertebral artery. Per ED provider, neurology consulted: on indication for transfer/intervention. Pt confirms vonwillerbran dx, cannot be anticoagulated. Echo and carotid US pending. MRI of brain recommended, pt with hardware. Discussed MRI to determine presence of stroke, she deffers at this time. NIHSS 0. Neurological exam WNL. Evaluated by PT and OT, both indicate pt's need for home health., will be arranged and ready upon discharge. Pressure ulcer stage I left buttock, without noted skin breakdown. Left hip with full ROM, without deformity, without pain. Given hx recent fall will image left hip. For headache will give Fioricet, home dose. Will cnt ceftriaxone for UTI, UC pending. DM is poorly controlled. Glucose in 300s with ~7 units q meals and home meds. Initiate 10u lantus qHS. order Heme A1c in a.m. Lipid panel with elevated cholesterol and triglycerides; continue statin. Likely dc home tomorrow with home health.
[2020-10-13] MEDS ORDERED: INSULIN GLARGINE,HUM.REC.ANLOG 1,000 UNIT/10 ML VIAL SUBCUT SCH (22:00)
[2020-10-13] MEDS: CEFTRIAXONE 2 GM/D5W RTU 2 GM/50 ML RTUPB IV SCH (22:14)
[2020-10-13] MEDS: ATORVASTATIN CALCIUM 40 MG TABLET PO SCH (22:14)
[2020-10-14] MEDS: CYCLOBENZAPRINE HCL 10 MG TABLET PO PRN ×2 (00:26→21:40)
--- NOTE | 2020-10-14 01:40 | RADIOLOGY REPORT (SQ) ---
BILATERAL CAROTID ARTERY ULTRASOUND: 10/14/2020 12:33 AM DOG WALKER TECHNIQUE: Grayscale, color, and spectral evaluation of the carotid arteries was performed. COMPARISON: CT of the head and neck from 10/13/2020 CLINICAL HISTORY: 65-year old patient with concern for vascular disease. TECHNIQUE: Steinberg-scale, duplex and color Doppler images of the carotid systems are obtained bilaterally. (Validated velocity measurements with angiographic measurements - Velocity criteria are extrapolated from diameter data as defined by the Society of Radiologists in Ultrasound Consensus Conference, Radiology 2003; 229; 340 - 346.) FINDINGS: Mild atherosclerotic plaque and intimal thickening is seen within both carotid bulbs as well as the proximal internal and external carotid arteries. Spectral analysis demonstrates peak systolic and end-diastolic velocities as follows: RIGHT: CCA: 81.9 cm/s, 13.4 cm/s Proximal ICA: 79.1 cm/s, 15.4 cm/s Mid ICA: 99.8 cm/s, 18.5 cm/s Distal ICA: 145.7 cm/s, 22.6 cm/s LEFT: CCA: 111.0 cm/s, 9.6 cm/s Proximal ICA: 57.1 cm/s, 10.2 cm/s Mid ICA: Not visualized Distal ICA: 95.6 cm/s, 19.4 cm/s The ICA:CCA ratio on the right is 2.1, and on the left is 1.1. Antegrade flow is seen at the left vertebral artery. The right vertebral artery was not visualized. IMPRESSION: There are elevated peak systolic velocities at the right internal carotid artery consistent with a 50-69% stenosis. There are no findings to suggest a hemodynamically significant stenosis of the left internal carotid artery. The right vertebral artery is not visualized, consistent with occlusion seen on recent CTA.
[2020-10-14 06:08] LABS: ABSOLUTE BASOPHILS # (AUTO) 0.1 10^3/uL (0.0-0.2); ABSOLUTE EOSINOPHILS # (AUTO) 0.2 10^3/uL (0.0-0.6); ABSOLUTE LYMPHOCYTES (AUTO) 1.4 10^3/uL (0.5-4.7); ABSOLUTE MONOCYTES (AUTO) 0.9 10^3/uL (0.1-1.4); ABSOLUTE NEUT (AUTO) 5.7 10^3/uL (1.7-8.2); EOSINOPHILS % (AUTO) 2.9 % (0-6); HEMATOCRIT 33.4 % (36.0-47.0); HEMOGLOBIN 11.1 g/dL (12.0-15.5); LYMPHOCYTES % (AUTO) 16.9 % (13-45); MEAN CORPUSCULAR HEMOGLOBIN 26.9 pg (27.0-33.4); MEAN CORPUSCULAR HGB CONC 33.2 g/dL (32.0-36.0); MEAN CORPUSCULAR VOLUME 81 fl (80-97); MONOCYTES % (AUTO) 10.9 % (3-13); PLATELET COUNT 217 10^3/uL (150-450); RED BLOOD COUNT 4.13 10^6/uL (3.72-5.28); RED CELL DISTRIBUTION WIDTH 15.5 % (11.5-14.0); SEGMENTED NEUTROPHILS % (AUTO) 68.3 % (42-78); TOTAL CELLS COUNTED % (AUTO) 100 %; WHITE BLOOD COUNT 8.3 10^3/uL (4.0-10.5)
[2020-10-14 06:21] LABS: ANION GAP 6 (5-19); BLOOD UREA NITROGEN 12 mg/dL (7-20); CALCIUM 8.6 mg/dL (8.4-10.2); CARBON DIOXIDE 27 mmol/L (22-30); CHLORIDE 101 mmol/L (98-107); GLUCOSE 223 mg/dL (75-110); PHOSPHORUS 3.6 mg/dL (2.5-4.5); POTASSIUM 4.3 mmol/L (3.6-5.0)
[2020-10-14] MEDS ORDERED: INFLUENZA QUAD (6MOS+) 2020-21 VAC 0.5 ML SYR IM ONE (08:00)
[2020-10-14] MEDS: INSULIN LISPRO 100 UNIT/ML 3 ML VIAL SUBCUT SCH ×4 (08:29→21:54)
[2020-10-14] MEDS: HYDROXYZINE PAMOATE 25 MG CAPSULE PO SCH ×4 (09:31→21:24)
[2020-10-14] MEDS: ACETAMINOPHEN 325 MG TABLET PO PRN ×2 (09:31→21:40)
[2020-10-14] MEDS: GLIMEPIRIDE 4 MG TABLET PO SCH ×2 (09:31→17:42)
[2020-10-14] MEDS: DULOXETINE HCL 30 MG CAPSULE.DR PO SCH (09:32)
[2020-10-14] MEDS: DOCUSATE SODIUM 100 MG CAPSULE PO SCH (09:32)
[2020-10-14] MEDS: DIVALPROEX SODIUM 250 MG TABLET.DR PO SCH ×2 (09:32→17:42)
[2020-10-14] MEDS: CARVEDILOL 12.5 MG TABLET PO SCH ×2 (09:32→21:24)
--- NOTE | 2020-10-14 12:52 | XCELERA REPORT ---
[address] [address] Transthoracic Echocardiogram Report Name: MODESTA HIGUERA Age: 65 yrs Gender: Female : 1955 Patient Status: Inpatient Patient Location: [address] [place] [address] Study Date: 10/13/2020 03:46 PM Height: 60 in Weight: 143 lb BSA: 1.6 m2 Procedure: A two-dimensional transthoracic echocardiogram with color flow and Doppler was performed. Study Quality: Poor. Images were not obtained from all of the standard acoustic windows due to the limited scope of the study. Reason For Study: cva History: CVA. Ordering Physician: KEISHA MINOR Performed By: Isamar Madrid Interpretation Summary The left ventricle is normal in size. There is normal left ventricular wall thickness. No True apical 2 chamber views obtained.Hence cannot comment on the apical anterior , the basal anterior, the basal inferior and apical inferior hwang.The mid anterior , the mid inferior and the rest of the LV hwang contract normally. . LVEF is normal and is greater than 60% in the limited views. Doppler measurements suggest impaired left ventricular relaxation, which is associated with grade I/IV or mild diastolic dysfunction Not a good study diego assess for clots ,oir ASD ,VSD , or PFO,but no obvioud clots see.Recommend PENELOPE to be sure no embolic source. The right ventricle is normal in size and function. The right ventricle is not well visualized secondary to technical limitations The right atrium is normal. The left atrial size is normal. There is no evidence of mitral valve prolapse. There is no vegetation seen on the mitral valve. There is no mitral valve stenosis. There is no mitral regurgitation noted. There is no aortic valvular vegetation. There is no aortic valve stenosis There is no LVOT obstruction. No aortic regurgitation is present. There is no tricuspid stenosis. There is a trace to mild amount of tricuspid regurgitation Upper normal to early mild pulmomary hypertension.RVSP is 28 to 33 mm of Hg , with RA mean of 5 to 10. There is no pulmonic valvular stenosis. There is no pulmonic valvular regurgitation. The aortic root is normal size. The inferior vena cava appeared normal and decreased > 50% with respiration (RAP 5-10 mmHg) There is no pericardial effusion. MMode/2D Measurements & Calculations RVDd: 2.3 cm LVIDd: 3.6 cm FS: 31.3 % Ao root diam: 2.4 cm IVSd: 0.86 cm LVIDs: 2.5 cm EDV(Teich): 55.7 ml Ao root area: 4.4 cm2 LVPWd: 0.79 cm ESV(Teich): 22.3 ml EF(Teich): 60.0 % Doppler Measurements & Calculations MV E max ellen: MV dec slope: Ao V2 max: LV V1 max P.6 cm/sec 343.3 cm/sec2 131.5 cm/sec 3.8 mmHg MV A max ellen: MV dec time: 0.23 secAo max PG: LV V1 max: 96.3 cm/sec 6.9 mmHg 97.1 cm/sec MV E/A: 0.84 PA V2 max: TR max ellen: 79.8 cm/sec 238.2 cm/sec PA max P.5 mmHg TR max P.0 mmHg Left Ventricle The left ventricle is normal in size. There is normal left ventricular wall thickness. No True apical 2 chamber views obtained.Hence cannot comment on the apical anterior , the basal anterior, the basal inferior and apical inferior hwang.The mid anterior , the mid inferior and the rest of the LV hwang contract normally. . LVEF is normal and is greater than 60% in the limited views. Doppler measurements suggest impaired left ventricular relaxation, which is associated with grade I/IV or mild diastolic dysfunction. Not a good study diego assess for clots ,oir ASD ,VSD , or PFO,but no obvioud clots see.Recommend PENELOPE to be sure no embolic source. Right Ventricle The right ventricle is normal in size and function. The right ventricle is not well visualized secondary to technical limitations. Atria The right atrium is normal. The left atrial size is normal. Mitral Valve There is no evidence of mitral valve prolapse. There is no vegetation seen on the mitral valve. There is no mitral valve stenosis. There is no mitral regurgitation noted. Aortic Valve There is no aortic valvular vegetation. There is no aortic valve stenosis. There is no LVOT obstruction. No aortic regurgitation is present. Tricuspid Valve There is no tricuspid stenosis. There is a trace to mild amount of tricuspid regurgitation. Upper normal to early mild pulmomary hypertension.RVSP is 28 to 33 mm of Hg , with RA mean of 5 to 10. Pulmonic Valve There is no pulmonic valvular stenosis. There is no pulmonic valvular regurgitation. Great Vessels The aortic root is normal size. The inferior vena cava appeared normal and decreased > 50% with respiration (RAP 5-10 mmHg). Effusions There is no pericardial effusion. : KEISHA MINOR Lakshmi
--- NOTE | 2020-10-14 13:03 | RADIOLOGY REPORT (SQ) ---
EXAM DESCRIPTION: HIP LEFT AP/LATERAL IMAGES COMPLETED DATE/TIME: 10/13/2020 7:17 pm REASON FOR STUDY: fall onto left hip, left hip pain COMPARISON: None. NUMBER OF VIEWS: Two views. TECHNIQUE: AP pelvis and additional frog legview of the left hip. LIMITATIONS: None. FINDINGS: MINERALIZATION: Severe osteopenia LEFT HIP: Internal fixation from prior fracture. No acute findings. RIGHT HIP: Long-standing dysplasia and posttraumatic changes. PUBIS AND ISCHIUM: No fracture. PELVIS: No fracture. SACRUM: No fracture or dislocation. No worrisome bone lesions. LOWER LUMBAR SPINE: Changes related to ankylosing spondylitis. SOFT TISSUES: No findings. OTHER: No other significant finding. IMPRESSION: No acute findings noted. Severe osteopenia. TECHNICAL DOCUMENTATION: JOB ID: [id number] [employer]- All Rights Reserved Reading location - IP/workstation name: [email or web address]
[2020-10-14] MEDS: BUTALB/ACETAMINOPHEN/CAFFEINE 1 TAB EACH PO PRN (17:44)
--- NOTE | 2020-10-14 19:26 | PDOC PROGRESS REPORT ---
Subjective Date:: 10/14/20 Subjective:: Day 2: patient seen on morning rounds. She is resting in bed comfortably. She provides me with no complaints or concerns today and states that overall she feels significantly better. Updated patient on findings. She is understanding. I received permission to discuss patient with her son. Contacted patient's son Neftali at . Updated on patient status and plan moving forward. Patient's son tells me that patient lives at home alone with her dog. He does not feel it is safe to her to live alone as she is not reliable with her mediations and is frequently falling. Son works multimedia authoring specialist and does not feel he is able to take care of his mother. Patient does qualify for SNF placement and both the patient and her son agree she would benefit from continue rehab in the acute setting. Discussed with discharge management. Reason For Visit: ACUTE CVS,UNCONTROLLED T2DM,HEADACHE AND VOMITING Physical Exam Vital Signs: Temp Pulse Resp BP Pulse Ox 97.5 F 77 18 119/48 L 95 10/14/20 15:55 10/14/20 15:55 10/14/20 15:55 10/14/20 15:55 10/14/20 15:55 Intake & Output 10/13/20 10/14/20 10/15/20 06:59 06:59 06:59 Intake Total 1050 720 870 Output Total 1870 300 Balance 1050 -1150 570 Weight 64.9 kg 61.1 kg General appearance: PRESENT: no acute distress, cooperative, hard of hearing, thin Head exam: PRESENT: atraumatic, normocephalic Neck exam: PRESENT: full ROM Respiratory exam: PRESENT: clear to auscultation carlos manuel. ABSENT: wheezes Cardiovascular exam: PRESENT: RRR GI/Abdominal exam: PRESENT: normal bowel sounds, soft. ABSENT: tenderness Extremities exam: PRESENT: full ROM Musculoskeletal exam: PRESENT: ambulatory Neurological exam: PRESENT: alert, awake, oriented to person, oriented to place, oriented to time, oriented to situation, CN II-XII grossly intact. ABSENT: altered, motor sensory deficit Psychiatric exam: PRESENT: appropriate affect, normal mood Skin exam: PRESENT: dry, intact, warm Results Laboratory Results: 10/14/20 05:29 10/14/20 05:29 10/14/20 10/14/20 05:29 05:29 WBC 8.3 RBC 4.13 Hgb 11.1 L Hct 33.4 L MCV 81 MCH 26.9 L MCHC 33.2 RDW 15.5 H Plt Count 217 Seg Neutrophils % 68.3 Sodium 134.2 L Potassium 4.3 Chloride 101 Carbon Dioxide 27 Anion Gap 6 BUN 12 Creatinine 0.60 Est GFR ( Amer) > 60 Glucose 223 H Calcium 8.6 Phosphorus 3.6 Magnesium 1.6 10/12/20 17:46 Troponin I < 0.012 Impressions: Chest X-Ray 10/12/20 17:32 IMPRESSION: NO ACUTE RADIOGRAPHIC FINDING IN THE CHEST. Head CT 10/12/20 21:08 IMPRESSION: 1. No acute hemorrhage 2. Inferior left occipital lobe hypodensity, suspicious for acute versus subacute infarct. Please correlate with current clinical symptoms. 3. Encephalomalacia along the medial left temporal lobe and in the left parietal lobe, consistent with old infarcts 4. The above lesions suggest a left ALKYLATION OPERATOR or vertebral/basilar stenosis. CTA head and neck would provide a better evaluation. 5. Old left caudate head lacunar infarct Hip X-Ray 10/13/20 00:00 IMPRESSION: No acute findings noted. Severe osteopenia. Head CTA 10/13/20 01:25 IMPRESSION: CTA NECK: 1. Occlusion of the right vertebral artery just beyond its origin. There may be partial reconstitution of the right vertebral artery at the level of C1-C2. 2. Overall, somewhat limited CT angiography study possibly due to bolus timing versus anatomically small vessels. 3. Otherwise, normal CTA of the neck without evidence of a hemodynamically significant stenosis as per the NASCET criteria. 4. 5 mm noncalcified nodule in the right upper lobe and 6 mm pleural parenchymal nodule in the posterior left upper lobe. These appear new when compared to the prior CT chest performed on 01/17/2012. The patient may benefit from a follow-up dedicated unenhanced chest CT to confirm if other nodules are present. CTA HEAD: 1. Suboptimal evaluation of the intracranial arteries either due to their small caliber or suboptimal bolus timing. 2. origin of the right posterior cerebral artery. The P2 segments are not well visualized on this examination. 3. Hypoplastic left A1 segment. 4. Nonvisualization of the intradural right vertebral artery as described above. These critical findings were discussed with Dr. Mccord on 10/13/2020 at 2:17 AM central time Neck CTA 10/13/20 01:25 IMPRESSION: CTA NECK: 1. Occlusion of the right vertebral artery just beyond its origin. There may be partial reconstitution of the right vertebral artery at the level of C1-C2. 2. Overall, somewhat limited CT angiography study possibly due to bolus timing versus anatomically small vessels. 3. Otherwise, normal CTA of the neck without evidence of a hemodynamically significant stenosis as per the NASCET criteria. 4. 5 mm noncalcified nodule in the right upper lobe and 6 mm pleural parenchymal nodule in the posterior left upper lobe. These appear new when compared to the prior CT chest performed on 01/17/2012. The patient may benefit from a follow-up dedicated unenhanced chest CT to confirm if other nodules are present. CTA HEAD: 1. Suboptimal evaluation of the intracranial arteries either due to their small caliber or suboptimal bolus timing. 2. origin of the right posterior cerebral artery. The P2 segments are not well visualized on this examination. 3. Hypoplastic left A1 segment. 4. Nonvisualization of the intradural right vertebral artery as described above. These critical findings were discussed with Dr. Mccord on 10/13/2020 at 2:17 AM central time Carotid Doppler Study 10/13/20 05:58 IMPRESSION: There are elevated peak systolic velocities at the right internal carotid artery consistent with a 50-69% stenosis. There are no findings to suggest a hemodynamically significant stenosis of the left internal carotid artery. The right vertebral artery is not visualized, consistent with occlusion seen on recent CTA. Assessment and Plan - Diagnosis (1) Suspected cerebrovascular accident (CVA) Is this a current diagnosis for this admission?: Yes (2) Nausea & vomiting Qualifiers: Vomiting type: unspecified Vomiting Intractability: non-intractable Qualified Code(s): R11.2 - Nausea with vomiting, unspecified Is this a current diagnosis for this admission?: Yes (3) Urinary tract infection Qualifiers: Urinary tract infection type: site unspecified Hematuria presence: with hematuria Qualified Code(s): N39.0 - Urinary tract infection, site not specified; R31.9 - Hematuria, unspecified Is this a current diagnosis for this admission?: Yes (4) Vertebral artery occlusion Is this a current diagnosis for this admission?: Yes (5) HLD (hyperlipidemia) Is this a current diagnosis for this admission?: Yes (6) HTN (hypertension) Is this a current diagnosis for this admission?: Yes (7) History of PA (myocardial infarction) Is this a current diagnosis for this admission?: Yes (8) Multiple sclerosis Is this a current diagnosis for this admission?: Yes (9) Seizure disorder Is this a current diagnosis for this admission?: Yes (10) T2DM (type 2 diabetes mellitus) Qualifiers: Diabetes mellitus [facility] insulin use: without lacemaker use Diabetes mellitus complication status: with hyperglycemia Qualified Code(s): E11.65 - Type 2 diabetes mellitus with hyperglycemia Is this a current diagnosis for this admission?: Yes (11) Von Willebrands disease Is this a current diagnosis for this admission?: Yes (12) Frequent falls Is this a current diagnosis for this admission?: Yes - Plan Summary Summary: Frequent falls: With fall last week, landing on left hip. Xray without acute findings. - Evaluated by PT/Ot who both recommend continue rehabilitation, pt qualifies for SNF placement. - Discussed with pt's son as above, will dc pt to SNF, given little support at home and need for cnt therapy. - Discharge planning onboard. Suspected cerebrovascular accident (CVA) / Right ICA Stenosis - Without neurological deficit on exam. -NIHSS on Admit: 0 -ASA contraindicated in von Willebrand's disease. Consider plavix, per conversation with oncology. -Carotid PVL: Left ICA ~50% stenosis, this parallels noted stroke on CT. -CT Head inferior left occipital lobe hypodensity suspicious for acute versus subacute infarct -MRI Brain adamantly refused by patient due to her concerns about left leg hardware Neurology consulted by ED: No indication for transfer or intervention Nausea & vomiting: Since resolved. Possibly due to UTI versus migraine headache Urinary tract infection: UA infected, UC sent. Cnt Ceftriaxone while inpatient, transition to Keflex p.o. upon discharge. Vertebral artery occlusion: Right vertebral artery occlusion seen on CTA head/neck, poor contrast timing and small vessels complicated read of study per radiologist - Without signs stroke R side, stroke on L side, thus does not appear to be clinically relevant - Refer patient to vascular surgeon outpatient for further evaluation / treatment. HTN (hypertension): Controlled, home medications HLD (hyperlipidemia): Continue Statin Multiple sclerosis: Not currently in a flare per patient. Previously followed by outpatient neurology T2DM (type 2 diabetes mellitus): Blood sugar 432 on admission. Continue glimepiride. Initiated Lantus 10u qhs. A1c 12%. - Accu-Chek, sliding scale insulin Von Willebrands disease: Unble to get anticoagulants or antiplatelet drugs due to high bleeding risk and history of severe bleeding. - Discussed with oncology, Dr. Gavin, recommends Von Willebrand panel to detect if current. Plavix is safe in patient. Will initiate. Seizure disorder: Home medications continued - Time Time Spent with patient: 35 or more minutes Medications reviewed and adjusted accordingly: Yes Anticipated Discharge Disposition: Shelter Facility Anticipated Discharge Timeframe: within 24 hours
[2020-10-14] MEDS: CEFTRIAXONE 2 GM/D5W RTU 2 GM/50 ML RTUPB IV SCH (21:24)
[2020-10-14] MEDS ORDERED: INSULIN GLARGINE,HUM.REC.ANLOG 1,000 UNIT/10 ML VIAL SUBCUT SCH (22:00)
[2020-10-14] MEDS: ATORVASTATIN CALCIUM 40 MG TABLET PO SCH (22:42)
[2020-10-15 05:38] LABS: ABSOLUTE BASOPHILS # (AUTO) 0.1 10^3/uL (0.0-0.2); ABSOLUTE EOSINOPHILS # (AUTO) 0.2 10^3/uL (0.0-0.6); ABSOLUTE LYMPHOCYTES (AUTO) 1.9 10^3/uL (0.5-4.7); ABSOLUTE MONOCYTES (AUTO) 0.8 10^3/uL (0.1-1.4); ABSOLUTE NEUT (AUTO) 4.3 10^3/uL (1.7-8.2); BASOPHILS % (AUTO) 1.1 % (0-2); EOSINOPHILS % (AUTO) 3.1 % (0-6); HEMATOCRIT 32.6 % (36.0-47.0); HEMOGLOBIN 10.7 g/dL (12.0-15.5); LYMPHOCYTES % (AUTO) 26.2 % (13-45); MEAN CORPUSCULAR HEMOGLOBIN 26.9 pg (27.0-33.4); MEAN CORPUSCULAR VOLUME 82 fl (80-97); MONOCYTES % (AUTO) 11.3 % (3-13); PLATELET COUNT 206 10^3/uL (150-450); RED BLOOD COUNT 3.99 10^6/uL (3.72-5.28); RED CELL DISTRIBUTION WIDTH 15.4 % (11.5-14.0); SEGMENTED NEUTROPHILS % (AUTO) 58.3 % (42-78); TOTAL CELLS COUNTED % (AUTO) 100 %; WHITE BLOOD COUNT 7.4 10^3/uL (4.0-10.5)
[2020-10-15 06:18] LABS: BLOOD UREA NITROGEN 16 mg/dL (7-20); CALCIUM 8.5 mg/dL (8.4-10.2); CHLORIDE 102 mmol/L (98-107); GLUCOSE 286 mg/dL (75-110); POTASSIUM 4.7 mmol/L (3.6-5.0)
[2020-10-15 06:24] LABS: ANION GAP 5 (5-19); CARBON DIOXIDE 27 mmol/L (22-30)
[2020-10-15] MEDS: INSULIN LISPRO 100 UNIT/ML 3 ML VIAL SUBCUT SCH ×2 (08:38→11:22)
[2020-10-15] MEDS ORDERED: OXYBUTYNIN CHLORIDE 5 MG TABLET PO SCH (10:00)
[2020-10-15] MEDS ORDERED: INSULIN LISPRO 100 UNIT/ML 3 ML VIAL SUBCUT SCH (11:00)
[2020-10-15] MEDS: DOCUSATE SODIUM 100 MG CAPSULE PO SCH (11:05)
[2020-10-15] MEDS: DIVALPROEX SODIUM 250 MG TABLET.DR PO SCH (11:05)
[2020-10-15] MEDS: HYDROXYZINE PAMOATE 25 MG CAPSULE PO SCH ×2 (11:05→16:24)
[2020-10-15] MEDS: CARVEDILOL 12.5 MG TABLET PO SCH (11:06)
[2020-10-15] MEDS: GLIMEPIRIDE 4 MG TABLET PO SCH (11:06)
[2020-10-15] MEDS: DULOXETINE HCL 30 MG CAPSULE.DR PO SCH (11:06)
[2020-10-15] MEDS: BUTALB/ACETAMINOPHEN/CAFFEINE 1 TAB EACH PO PRN (11:23)
[2020-10-15 16:27] VITALS: BP 121/49
--- NOTE | 2020-10-15 19:01 | PDOC DISCHARGE SUMMARY ---
Impression - Admit/DC Date/PCP Admission Date/Primary Care Provider: 10/13/20 05:26 SABAS TSANG MD Discharge Date: 10/15/20 - Discharge Diagnosis (1) Suspected cerebrovascular accident (CVA) Is this a current diagnosis for this admission?: Yes (2) Nausea & vomiting Is this a current diagnosis for this admission?: Yes (3) Urinary tract infection Is this a current diagnosis for this admission?: Yes (4) Vertebral artery occlusion Is this a current diagnosis for this admission?: Yes (5) HLD (hyperlipidemia) Is this a current diagnosis for this admission?: Yes (6) HTN (hypertension) Is this a current diagnosis for this admission?: Yes (7) History of MO (myocardial infarction) Is this a current diagnosis for this admission?: Yes (8) Multiple sclerosis Is this a current diagnosis for this admission?: Yes (9) Seizure disorder Is this a current diagnosis for this admission?: Yes (10) T2DM (type 2 diabetes mellitus) Is this a current diagnosis for this admission?: Yes (11) Von Willebrands disease Is this a current diagnosis for this admission?: Yes (12) Frequent falls Is this a current diagnosis for this admission?: Yes - Additional Information Resuscitation Status: Full Code Discharge Diet: Cardiac, Diabetic Discharge Activity: Activity As Tolerated Referrals: SABAS TSANG MD [Primary Care Provider] - (-pt will need a referral for a vascular surg. -pt has an appt with her pain management dr on 10/29/20) Prescriptions: Blood-Glucose Meter [Accu-Chek Guide Me Glucose Mtr] 1 each ASDIR PRN #1 each PRN Reason: Blood Sugar Diagnostic [Advanced Glucose Test Strips] 1 each ASDIR #120 strip Insulin Glargine,Hum.rec.anlog [Basaglar Kwikpen U-100] 10 unit SQ DAILY 30 Days #3 insuln.pen Pen Needle, Diabetic [Insulin Pen Needle] 1 each QHS #30 dis.needle Cephalexin Monohydrate [Keflex 500 mg Capsule] 500 mg PO BID 3 Days #6 capsule Atorvastatin Calcium [Lipitor 40 mg Tablet] 40 mg PO QHS #30 tablet Clopidogrel Bisulfate [Plavix 75 mg Tablet] 75 mg PO DAILY #30 tablet Home Medications: Butalb/Acetaminophen/Caffeine [Fioricet (50-325-40 mg) Tablet] 1 tab PO DAILYP PRN 10/13/20 Carvedilol [Coreg 12.5 mg Tablet] 12.5 mg PO Q12 10/13/20 Divalproex Sodium 500 mg PO BID 10/13/20 Duloxetine HCl 60 mg PO DAILY 10/13/20 Glimepiride [Amaryl 4 mg Tablet] 4 mg PO BID 10/13/20 Hydroxyzine Pamoate [Vistaril] 25 mg PO QID 10/13/20 Oxybutynin Chloride [Oxybutynin Chloride ER] 10 mg PO BID PRN 10/13/20 Nitroglycerin [Nitro-Dur] 1 each TD DAILY 10/14/20 Atorvastatin Calcium [Lipitor 40 mg Tablet] 40 mg PO QHS #30 tablet 10/15/20 Blood Sugar Diagnostic [Advanced Glucose Test Strips] 1 each ASDIR #120 strip 10/15/20 Blood-Glucose Meter [Accu-Chek Guide Me Glucose Mtr] 1 each ASDIR PRN #1 each 10/15/20 Cephalexin Monohydrate [Keflex 500 mg Capsule] 500 mg PO BID 3 Days #6 capsule 10/15/20 Clopidogrel Bisulfate [Plavix 75 mg Tablet] 75 mg PO DAILY #30 tablet 10/15/20 Insulin Glargine,Hum.rec.anlog [Basaglar Kwikpen U-100] 10 unit SQ DAILY 30 Days #3 insuln.pen 10/15/20 Pen Needle, Diabetic [Insulin Pen Needle] 1 each QHS #30 dis.needle 10/15/20 History of Present Illiness History of Present Illness: As per admitting provider "MODESTA HIGUERA is a 65 year old female with past medical history significant for multiple sclerosis, seizure disorder, HTN, HLD, T2DM, history of MO, von Willebrand's disease who presents to the ED with a 2- day history of headache/nausea/vomiting/diarrhea/abdominal pain. Patient underwent CT head without contrast that showed areas suspicious for acute CVA. Patient also had CTA of head and neck which showed a right vertebral artery occlusion although radiologist noted study quality was very poor due to contrast timing and very small vasculature and patient. Neurology was consulted by ED and they stated there is no indication for any intervention or transfer and the patient should be admitted here for echocardiogram, carotid PVL, brain MRI. Patient cannot be given aspirin due to von Willebrand's disease and history of severe bleeding. Patient has not had any focal deficits since admission however she states that she did have right arm weakness 4 days ago but this resolved. She is unclear if this is due to her multiple sclerosis flaring or an unrelated problem. Also of note, her blood sugar was quite elevated up to 432. Patient only takes glimepiride for this at home. UA clearly infected though urine was not sent for culture in ED. This has been ordered now. Patient has no focal deficits on exam. Patient is extremely hard of hearing and very tangential in her speech, poor historian overall. Patient adamantly refuses MRI brain due to concerns of hardware in her left hip that was placed approximately 8 years ago. She became tearful when asked about getting an MRI and did not wish to discuss it further." Hospital Course Hospital Course: Discharge instructions and medication changes were discussed with both the patient and the patient's son in detail. Both the patient and the son expressed understanding of treatment plan moving forward. At this time patient is stable and safe for discharge. Patient is to follow-up with her primary care provider within 1 week of discharge. A referral for a vascular surgeon will be obtained from her primary care provider. Falls: With fall last week, landing on left hip. Xray without acute findings. - Evaluated by PT/Ot who both recommend continue rehabilitation, patient qualified for SNF placement vs . Discussed with both the patient and her son in detail. Patient's son seems interested in patient pursuing treatment at a SNF and mentions long-term placement. Patient is capable of making decisions for herself and has decided to go home with home health. Patient is safe for discharge home, although both the patient and son are informed that she will require increased assistance for which I mentioned increased assistance from her son as well as an aide. Home health has been arranged, they will aid in physical therapy occupational therapy, medication management. Patient histo rically had an aide who worked with her. Her medications were reviewed, I recommend discontinuing Flexeril or using with caution as this can cause increase risk in falls. Suspected cerebrovascular accident (CVA) / Right ICA Stenosis - Without neurological deficit on exam. -NIHSS on Admit: 0 -ASA contraindicated in von Willebrand's disease. Initiated Plavix 75 mg daily for at least 21 days. Recommend follow-up with her primary care provider/vascular surgery to discuss continued Plavix therapy. -Carotid PVL: Left ICA ~50% stenosis, this parallels noted stroke on CT. -CT Head inferior left occipital lobe hypodensity suspicious for acute versus subacute infarct -MRI Brain adamantly refused by patient due to her concerns about left leg hardware Neurology consulted by ED: No indication for transfer or intervention - Recommend F/u with vascular surgeon, PCP made aware of recommendation and need for referral. Nausea & vomiting: Since resolved. Possibly due to UTI versus migraine headache Urinary tract infection: UA infected, UC sent. Cnt Ceftriaxone while inpatient, transition to Keflex p.o. for 3 days. Vertebral artery occlusion: Right vertebral artery occlusion seen on CTA head/neck, poor contrast timing and small vessels complicated read of study per radiologist - Without signs stroke R side, stroke on L side, thus does not appear to be clinically relevant - Refer patient to vascular surgeon outpatient for further evaluation / treatment, patient's primary care provider made aware of need of for referral. Patient is to follow-up with primary care provider and vascular surgeon. HTN (hypertension): Controlled, home medications HLD (hyperlipidemia): Continue Statin at increased dose. Multiple sclerosis: Not currently in a flare per patient. Previously followed by outpatient neurology T2DM (type 2 diabetes mellitus): Blood sugar 432 on admission. Heme A1c 12%. I will continue her on her glimepiride. Over hospital admission patient required ~18 unit SSI in addition to 10u Lantus qHs. Initiate long-acting insulin 10 units nightly, continue glimepiride. Patient received diabetic education including proper use and management of insulin. Provided patient with prescription for glucometer. Patient educated on keeping a daily glucose log today she is to present to her primary care provider at her follow-up within 1 week of discharge, this will allow for appropriate blood sugar management moving forward and adjustments to be made better needed. Von Willebrands disease: Unble to get anticoagulants or antiplatelet drugs due to high bleeding risk and history of severe bleeding. - Discussed with oncology, Dr. Gavin, recommends Von Willebrand panel to detect if current. Plavix is safe in patient. Will initiate. The patient and her son were educated that they may follow-up in office Dr. Gavin for future management. Seizure disorder: Home medications continued Physical Exam Vital Signs: Temp Pulse Resp BP Pulse Ox 98.2 F 80 18 121/49 L 91 L 10/15/20 15:38 10/15/20 15:38 10/15/20 15:38 10/15/20 15:09 10/15/20 15:38 Intake & Output 10/14/20 10/15/20 10/16/20 06:59 06:59 06:59 Intake Total 720 1356 378 Output Total 1870 700 450 Balance -1150 656 -72 Weight 61.1 kg 65.5 kg Additional comments: General appearance: PRESENT: no acute distress, cooperative, hard of hearing Head exam: PRESENT: atraumatic, normocephalic Neck exam: PRESENT: full ROM Respiratory exam: PRESENT: clear to auscultation carlos manuel. ABSENT: wheezes Cardiovascular exam: PRESENT: RRR GI/Abdominal exam: PRESENT: normal bowel sounds, soft. ABSENT: tenderness Extremities exam: PRESENT: full ROM Musculoskeletal exam: PRESENT: ambulatory Neurological exam: PRESENT: alert, awake, oriented to person, oriented to place, oriented to time, oriented to situation, CN II-XII grossly intact. ABSENT: altered, motor sensory deficit Psychiatric exam: PRESENT: appropriate affect, normal mood Skin exam: PRESENT: dry, intact, warm Results Laboratory Results: WBC 7.4 10^3/uL (4.0-10.5) 10/15/20 05:08 RBC 3.99 10^6/uL (3.72-5.28) 10/15/20 05:08 Hgb 10.7 g/dL (12.0-15.5) L 10/15/20 05:08 Hct 32.6 % (36.0-47.0) L 10/15/20 05:08 MCV 82 fl (80-97) 10/15/20 05:08 MCH 26.9 pg (27.0-33.4) L 10/15/20 05:08 MCHC 33.0 g/dL (32.0-36.0) 10/15/20 05:08 RDW 15.4 % (11.5-14.0) H 10/15/20 05:08 Plt Count 206 10^3/uL (150-450) 10/15/20 05:08 Lymph % (Auto) 26.2 % (13-45) 10/15/20 05:08 [place] % (Auto) 11.3 % (3-13) 10/15/20 05:08 Eos % (Auto) 3.1 % (0-6) 10/15/20 05:08 Baso % (Auto) 1.1 % (0-2) 10/15/20 05:08 Absolute Neuts (auto) 4.3 10^3/uL (1.7-8.2) 10/15/20 05:08 Absolute Lymphs (auto) 1.9 10^3/uL (0.5-4.7) 10/15/20 05:08 Absolute Monos (auto) 0.8 10^3/uL (0.1-1.4) 10/15/20 05:08 Absolute Eos (auto) 0.2 10^3/uL (0.0-0.6) 10/15/20 05:08 Absolute Basos (auto) 0.1 10^3/uL (0.0-0.2) 10/15/20 05:08 Total Counted 100 10/13/20 05:59 Seg Neutrophils % 58.3 % (42-78) 10/15/20 05:08 Seg Neuts % (Manual) 73 % (42-78) 10/13/20 05:59 Lymphocytes % (Manual) 18 % (13-45) 10/13/20 05:59 Atypical Lymphs % 4 % (0) 10/12/20 17:46 Monocytes % (Manual) 7 % (3-13) 10/13/20 05:59 Eosinophils % (Manual) 2 % (0-6) 10/13/20 05:59 Basophils % (Manual) 0 % (0-2) 10/13/20 05:59 Abs Neuts (Manual) 6.3 10^3/uL (1.7-8.2) 10/13/20 05:59 Abs Lymphs (Manual) 1.5 10^3/uL (0.5-4.7) 10/13/20 05:59 Abs Monocytes (Manual) 0.6 10^3/uL (0.1-1.4) 10/13/20 05:59 Absolute Eos (Manual) 0.2 10^3/uL (0.0-0.6) 10/13/20 05:59 Abs Basophils (Manual) 0.0 10^3/uL (0.0-0.2) 10/13/20 05:59 Toxic Vacuolation PRESENT 10/12/20 17:46 Large Platelets PRESENT 10/12/20 17:46 Platelet Comment ADEQUATE 10/13/20 05:59 Anisocytosis SLIGHT 10/13/20 05:59 PT 13.2 SEC (11.4-15.4) 10/13/20 05:59 INR 0.98 10/13/20 05:59 VBG pH 7.34 (7.30-7.42) 10/12/20 22:40 VBG pCO2 52.8 mmHg (35-63) 10/12/20 22:40 VBG HCO3 27.9 mmol/L (20-32) 10/12/20 22:40 VBG Base Excess 1.2 mmol/L 10/12/20 22:40 Sodium 134.3 mmol/L (137-145) L 10/15/20 05:08 Potassium 4.7 mmol/L (3.6-5.0) 10/15/20 05:08 Chloride 102 mmol/L (98-107) 10/15/20 05:08 Carbon Dioxide 27 mmol/L (22-30) 10/15/20 05:08 Anion Gap 5 (5-19) 10/15/20 05:08 BUN 16 mg/dL (7-20) 10/15/20 05:08 Creatinine 0.76 mg/dL (0.52-1.25) 10/15/20 05:08 Est GFR ( Amer) > 60 (>60) 10/15/20 05:08 Est GFR (MDRD) Non-Af > 60 (>60) 10/15/20 05:08 Glucose 286 mg/dL (75-110) H 10/15/20 05:08 POC Glucose 264 mg/dL (70-110) H 10/15/20 11:02 Hemoglobin A1c % 12.4 % (4.7-6.0) H 10/13/20 05:59 Calcium 8.5 mg/dL (8.4-10.2) 10/15/20 05:08 Phosphorus 3.6 mg/dL (2.5-4.5) 10/14/20 05:29 Magnesium 1.6 mg/dL (1.6-2.3) 10/14/20 05:29 Total Bilirubin 0.6 mg/dL (0.2-1.3) 10/13/20 00:24 Direct Bilirubin 0.4 mg/dL (0.0-0.4) 10/13/20 00:24 Neonat Total Bilirubin Not Reportable 10/13/20 00:24 Neonat Direct Bilirubin Not Reportable 10/13/20 00:24 Neonat Indirect Bili Not Reportable 10/13/20 00:24 AST 13 U/L (14-36) L 10/13/20 00:24 ALT 12 U/L (<35) 10/13/20 00:24 Alkaline Phosphatase 122 U/L (38-126) 10/13/20 00:24 Troponin I < 0.012 ng/mL 10/12/20 17:46 Total Protein 6.2 g/dL (6.3-8.2) L 10/13/20 00:24 Albumin 2.9 g/dL (3.5-5.0) L 10/13/20 00:24 Triglycerides 392 mg/dL (<150) H 10/13/20 05:59 Cholesterol 206.49 mg/dL (0-200) H 10/13/20 05:59 LDL Cholesterol Direct 96 mg/dL (<100) 10/13/20 05:59 VLDL Cholesterol 78.4 mg/dL (10-31) H 10/13/20 05:59 HDL Cholesterol 25 mg/dL (>40) L 10/13/20 05:59 Lipase 25.1 U/L (23-300) 10/12/20 17:46 Urine Color YELLOW 10/12/20 22:10 Urine Appearance CLOUDY 10/12/20 22:10 Urine pH 6.0 (5.0-9.0) 10/12/20 22:10 Ur Specific [place] 1.026 10/12/20 22:10 Urine Protein 100 mg/dL (NEGATIVE) H 10/12/20 22:10 Urine Glucose (UA) >=500 mg/dL (NEGATIVE) H 10/12/20 22:10 Urine Ketones 20 mg/dL (NEGATIVE) H 10/12/20 22:10 Urine Blood MODERATE (NEGATIVE) H 10/12/20 22:10 Urine Nitrite NEGATIVE (NEGATIVE) 10/12/20 22:10 Urine Bilirubin NEGATIVE (NEGATIVE) 10/12/20 22:10 Urine Urobilinogen NEGATIVE mg/dL (<2.0) 10/12/20 22:10 Ur Leukocyte Esterase LARGE (NEGATIVE) H 10/12/20 22:10 Urine WBC (Auto) >182 /HPF 10/12/20 22:10 Urine RBC (Auto) 44 /HPF 10/12/20 22:10 Urine Bacteria (Auto) 2+ /HPF 10/12/20 22:10 Urine WBC Clumps MANY /HPF 10/12/20 22:10 Squamous Epi Cells Auto 1 /HPF 10/12/20 22:10 Urine Ascorbic Acid NEGATIVE (NEGATIVE) 10/12/20 22:10 10/12/20 17:46 Troponin I < 0.012 Impressions: Chest X-Ray 10/12/20 17:32 IMPRESSION: NO ACUTE RADIOGRAPHIC FINDING IN THE CHEST. Head CT 10/12/20 21:08 IMPRESSION: 1. No acute hemorrhage 2. Inferior left occipital lobe hypodensity, suspicious for acute versus subacute infarct. Please correlate with current clinical symptoms. 3. Encephalomalacia along the medial left temporal lobe and in the left parietal lobe, consistent with old infarcts 4. The above lesions suggest a left [employer] or vertebral/basilar stenosis. CTA head and neck would provide a better evaluation. 5. Old left caudate head lacunar infarct Hip X-Ray 10/13/20 00:00 IMPRESSION: No acute findings noted. Severe osteopenia. Head CTA 10/13/20 01:25 IMPRESSION: CTA NECK: 1. Occlusion of the right vertebral artery just beyond its origin. There may be partial reconstitution of the right vertebral artery at the level of C1-C2. 2. Overall, somewhat limited CT angiography study possibly due to bolus timing versus anatomically small vessels. 3. Otherwise, normal CTA of the neck without evidence of a hemodynamically significant stenosis as per the NASCET criteria. 4. 5 mm noncalcified nodule in the right upper lobe and 6 mm pleural parenchymal nodule in the posterior left upper lobe. These appear new when compared to the prior CT chest performed on 01/17/2012. The patient may benefit from a follow-up dedicated unenhanced chest CT to confirm if other nodules are present. CTA HEAD: 1. Suboptimal evaluation of the intracranial arteries either due to their small caliber or suboptimal bolus timing. 2. origin of the right posterior cerebral artery. The P2 segments are not well visualized on this examination. 3. Hypoplastic left A1 segment. 4. Nonvisualization of the intradural right vertebral artery as described above. These critical findings were discussed with Dr. Mccord on 10/13/2020 at 2:17 AM central time Neck CTA 10/13/20 01:25 IMPRESSION: CTA NECK: 1. Occlusion of the right vertebral artery just beyond its origin. There may be partial reconstitution of the right vertebral artery at the level of C1-C2. 2. Overall, somewhat limited CT angiography study possibly due to bolus timing versus anatomically small vessels. 3. Otherwise, normal CTA of the neck without evidence of a hemodynamically significant stenosis as per the NASCET criteria. 4. 5 mm noncalcified nodule in the right upper lobe and 6 mm pleural parenchymal nodule in the posterior left upper lobe. These appear new when compared to the prior CT chest performed on 01/17/2012. The patient may benefit from a follow-up dedicated unenhanced chest CT to confirm if other nodules are present. CTA HEAD: 1. Suboptimal evaluation of the intracranial arteries either due to their small caliber or suboptimal bolus timing. 2. origin of the right posterior cerebral artery. The P2 segments are not well visualized on this examination. 3. Hypoplastic left A1 segment. 4. Nonvisualization of the intradural right vertebral artery as described above. These critical findings were discussed with Dr. Mccrod on 10/13/2020 at 2:17 AM central time Carotid Doppler Study 10/13/20 05:58 IMPRESSION: There are elevated peak systolic velocities at the right internal carotid artery consistent with a 50-69% stenosis. There are no findings to suggest a hemodynamically significant stenosis of the left internal carotid artery. The right vertebral artery is not visualized, consistent with occlusion seen on recent CTA. Plan Time Spent: Greater than 30 Minutes Stroke Is this a Stroke Patient?: Yes Stroke Pt being discharged on Anti-thrombolytic therapy?: Yes Stroke Pt being discharged on Anti-coagulation therapy?: No Reason(s) for not prescribing Anti-coagulation therapy:: Tx not tolerated, Medical Contraindication Stroke Pt being discharged on Statins?: Yes Acute Heart Failure Is this a Heart Failure Patient?: No
[2020-10-16 19:36] LABS: VON WILLEBRAND FACTOR ACTIVITY 155 % (50-200)
[2020-10-17 07:56] LABS: VON WILLEBRAND FACTOR ANTIGEN 166 % (50-200)
== END 2020-10-15 17:16 | disposition home health service (06) ==
LOC: ER 15:39 → EH 10-13 05:26 → INTOOBSV 10-13 05:26 → 5 10-13 09:19
PROVIDERS: ADMIT Internal Medicine; ATTEND Physician Assistant
DX: Z03.89 Encounter for observation for other suspected diseases and conditions ruled out (principal); I65.01 Occlusion and stenosis of right vertebral artery; R11.2 Nausea with vomiting, unspecified; N39.0 Urinary tract infection, site not specified; R31.9 Hematuria, unspecified; I10 Essential (primary) hypertension; G35 Multiple sclerosis; I25.2 Old myocardial infarction; G40.909 Epilepsy, unspecified, not intractable, without status epilepticus; E11.65 Type 2 diabetes mellitus with hyperglycemia; D68.0 Von Willebrand disease; R29.6 Repeated falls; R51.9 Headache, unspecified; E78.5 Hyperlipidemia, unspecified; H91.90 Unspecified hearing loss, unspecified ear; L89.321 Pressure ulcer of left buttock, stage 1; I25.10 Atherosclerotic heart disease of native coronary artery without angina pectoris; Z79.899 Other long term (current) drug therapy; R19.7 Diarrhea, unspecified; R32 Unspecified urinary incontinence; G89.29 Other chronic pain; M54.9 Dorsalgia, unspecified; Z91.81 History of falling; R29.700 NIHSS score 0; Z90.49 Acquired absence of other specified parts of digestive tract; Z79.84 Long term (current) use of oral hypoglycemic drugs; Z60.2 Problems related to living alone; Z86.14 Personal history of Methicillin resistant Staphylococcus aureus infection
CPT/HCPCS: 93005; 99285; 96361; 96375; 96365; 85240; 85245; 85246; 36415 ×4; 87086; 82962 ×4; 83690; 83735 ×2; 84100; 85025 ×4; 85610; 87088; 80048 ×2; 80053 ×2; 81001; 84484; 87186; 83036; 82803; 80061; 93306; 93880; 71045; 73502; 70450; 70496; 70498; 93010; 97530; 97163; 92610; 97165; G0378 ×3; A9270 ×30; J2405; J7030; J0696 ×3; J1815; J3490